=== PATIENT | female | born 1965 | race Asian ===

== ENCOUNTER 2023-12-20 09:31 | Outpatient (CLI) | payer MEDICARE, SELFPAY ==
--- NOTE | 2023-12-20 09:00 | CT_ITS ---
Patient: RUSTY PUTNAM Facility:?[facility] RIS Patient ID:?[id number] Site Patient ID:?[id number]. Site :?[id number] Study:?CT-Chest WITHOUT-12/20/2023 10:38:48 AM Ordering Physician:?DR. GONZALEZ Final Report: Indication: PT HAS NASOPHARYNX CANCER. CONSOLIDATION SEEN IN LUNG, CKING FOR Pneumonia Technique: Noncontrast CT chest Please note that all CT scans at this facility use dose modulation, iterative reconstruction, and/or weight-based dosing when appropriate to reduce radiation dose to as low as reasonably achievable. Comparison: None Findings: Focal airspace density within the medial aspect of the right middle lobe noted with air bronchograms at the proximal aspect. No pleural effusion. Mild underlying emphysema is suspected. Right apical pleural-parenchymal scarring. Mild scarring within the inferior lingula. No pulmonary edema or pneumothorax. No adenopathy in the mediastinum, alex or axilla. No vertebral body compression fracture or suspicious osseous lesion. Mild degenerative changes. Upper abdomen unremarkable. Impression: Small focal consolidative density within the medial right middle lobe. Please note that all CT scans at this facility use dose modulation, iterative reconstruction, and/or weight-based dosing when appropriate to reduce radiation dose to as low as reasonably achievable. Dictated by Ran Peck MD @ 12/20/2023 1:16:05 PM Signed by:?Ran Peck MD @12/20/2023 1:16:05 PM (Electronic Signature)
== END 2023-12-20 09:32 | disposition home or self-care (01) ==
PROVIDERS: Visit Provider Radiology Radiation Oncology
DX: J18.9 Pneumonia, unspecified organism (principal)
CPT/HCPCS: 71250

== ENCOUNTER 2025-01-27 16:13 | Emergency (ER) | payer MEDICARE, MEDICAID, SELFPAY ==
--- OUTSIDE RECORDS SUMMARY | 2024-12-17 | XMS_ITS | Encounter Summary ---
Author Organization [facility] Address [address] [place] [address] Care Team Providers Care Special Education Paraprofessional Name Role Phone Elsewhere, Pcp Primary Care Provider Unavailabl e Encounter Details Date Type Department Care Team (Late st Contact Info) Description 12/17/2024 Ancillary Procedure Department of Ophthalmology Social History Tobacco Use Types Packs/Day Years Used Date Smoking Tobacco: Never Passive Smoke Exposure: Never Smokeless Tobacco: Never Alcohol Use Standard Drinks/Week Comments Not Currently 1 (1 standard drink = 0.6 oz pure alcohol) patient states no alcohol in 6+months [facility] Utilities Answer Date Recorded In the past 12 months has [facility] [email or web address] gas, oil, or water [email or web address] threatened to shut off services in your home? No 10/28/2024 Humiliation, Afraid, Rape, and Kick questionnair e Answer Date Recorded Within the last year, have y ou been afraid of your partner or ex-partner? No 10/28/2024 Within the last year, have y ou been humiliated or emotionally abused in other ways by your partner or ex-partner? No Within the last year, have y ou been kicked, hit, slapped, or otherwise physically hurt by your partner or ex-partner? No 10/28/2024 Within the last year, have y ou been raped or forced to have any kind of sexual activity by your partner or ex-partner? No 10/28/2024 Social Connection and Isolat ion Panel [NHANES] Answer Date Recorded In a typical week, how many times do you talk on the phone with family, friends, or neighbors? More than three times a week 08/29/2022 How often do you get togethe r with friends or relatives? Three times a week 08/29/2022 How often do you attend chur or uatsdin services? Patient declined 08/29/2022 Do you belong to any clubs o r organizations such as yarsani groups, unions, [employer] or athletic groups, or school groups? No 08/29/2022 How often do you attend meet ings of the clubs or organizations you belong to? Never 08/29/2022 Are you , , di vorced, , never , or living with a partner? 08/29/2022 AUDIT-C Answer Date Recorded Q1: How often do you have a drink containing alc ohol? Monthly or less 08/29/2022 Q2: How many drinks containi ng alcohol do you have on a typical day when you are drinking? Patient declined 08/29/2022 Q3: How often do you have si x or more drinks on one occasion? Less than monthly 08/29/2022 Overall Financial Resource Strain (CARDIA) Answe r Date Recorded How hard is it for you to pa y for the very basics like food, housing, medical care, and heating? Patient declined 08/29/2022 PHQ-2 Answer Date Recorded PHQ-2 Score 0 02/13/2019 [facility] of Occupat ional Health - Occupational Stress Questionnaire Answer Date Recorded Do you feel stress - tense, restless, nervous, or anxious, or unable to sleep at night because your mind is troubled all the time - these days? Very much 08/29/2022 Exercise Vital Sign Answer Date Recorde d On average, how many days pe r week do you engage in moderate to strenuous exercise (like a brisk walk)? 0 days 09/18/2023 On average, how many minutes do you engage in exercise at this level? 0 min 09/18/2023 Hunger Vital Sign Answer Date Recorded Within the past 12 months, y ou worried that your food would run out before you got the money to buy more. Never true 10/28/19 Within the past 12 months, t he food you bought just didn't last and you didn't have money to get more. Never true 10/28/2024 PRAPARE - Transportation Answer Date Re corded In the past 12 months, has l ack of transportation kept you from medical appointments or from getting medications? No 10/11 In the past 12 months, has l ack of transportation kept you from meetings, work, or from getting things needed for daily living? No 10/28/2024 Nutrition Answer Date Recorded On average, how many serving s of fruits and vegetables do you eat per day (serving size is equal to 1 cup or approximately the size of a tennis ball)? 3-5 09/18/2023 Dental Answer Date Recorded Dental: Regular Dentist No 09/18/19 Employment Answer Date Recorded Employment status Temporarily disabled Housing Stability Answer Date Recorded What is your living situation today? I have a [facility] place to live 10/28/2024 Education Answer Date Recorded What is the highest level of school you have completed or the highest degree you have received? Associate degree: occupational, technical, or vocational program 08/29/2022 Sex and Gender Information Value Date Recorded Sex Assigned at Male 11/04/2018 9:57 AM NUTRITIONAL HEALTH COACH Legal Sex Male 4:48 PM NUTRITIONAL HEALTH COACH Gender Identity Male 11/04/2018 9:57 AM NUTRITIONAL HEALTH COACH Sexual Orientation Straight 11/04/2018 9: 57 AM NUTRITIONAL HEALTH COACH documented as of this encounter Plan of Treatment Upcoming Encounters Date Type Department Care Team (Latest Contact Info) Description 01/28/2025 12:20 PM CDT Lab Department of Laboratory Medicine and Pathology, [facility], in [place], [place] [address] [place] [phone] German Pierce P.A.-C. 200 [place] [phone] 01/28/2025 2:30 PM CDT Infusion Department of Oncology in [place], [place] [address] [place] [phone] German Pierce P.A.-C. [address] [place] [phone] 01/30/2025 4:28 PM CDT Hospital Encounter Post Anesthesia Care Unit in [place], [place] [address] [place] [phone] Quirino Jackson M.D. [address] [place] [phone] 01/30/2025 4:28 PM CDT - 01/30/2025 7:18 PM CDT Surgery [facility] MAIN OR [address] [place] [phone] Quirino Jackson M.D. [address] [place] [phone] INSERTION YSLETA DEL SUR CHAIN WEIGHT EYELID 02/09/2025 1:45 PM CDT Office Visit Department of Otorhinolaryngology in [place], [place] [address] [place] [phone] Quirino Bobo M.D. [address] [place] [phone] 02/09/2025 3:00 PM CDT Office Visit [facility] in [place], [place] [address] [place] [phone] Quirino Jackson M.D. [address] [place] [phone] 02/10/2025 11:00 AM CDT Lab Department of Laboratory Medicine and Pathology, [facility], in [place], [place] [address] [place] [phone] German Pierce P.A.-C. [address] [place] [phone] 02/10/2025 1:00 PM CDT Office Visit Department of Oncology in [place], [place] [address] [place] [phone] Rik Aguirre M.D., M.S. [address] [place] [phone] 02/13/2025 9:45 AM CDT Infusion Department of Oncology in [place], [place] [address] [place] [phone] German Pierce P.A.-C. [address] [place] [phone] 02/19/2025 10:00 AM CDT Lab Department of Laboratory Medicine and Pathology, [facility] in [place], [place] [address] [place] [phone] German Pierce P.A.-C. [address] [place] [phone] 02/19/2025 12:00 PM CDT Infusion Department of Oncology in [place], [place] [address] [place] [phone] German Pierce P.A.-C. [address] [place] [phone] 03/03/2025 11:00 AM CDT Lab Department of Laboratory Medicine and Pathology, [place], [place] [address] [place] [phone] German Pierce P.A.-C. [address] [place] [phone] 03/03/2025 1:00 PM CDT Office Visit Department of Oncology in [place], [place] [address] [place] [phone] Rik Aguirre M.D., M.S. [address] [place] [phone] 03/04/2025 7:30 AM CDT Infusion Department of Oncology in [place], [place] [address] [place] [phone] German Pierce P.A.-CCourtney [address] [place] [phone] 03/11/2025 10:00 AM CDT Lab Department of Laboratory Medicine and Pathology, [facility] in [place], [place] [address] [place] [phone] German Pierce P.A.-CCourtney [address] [place] [phone] 03/11/2025 12:00 PM CDT Infusion Department of Oncology in [place], [place] [address] [place] [phone] German Pierce P.A.-CCourtney [address] [place] [phone] 03/24/2025 7:10 AM CDT Lab Department of Laboratory Medicine and Pathology, [facility], in [place], [place] [address] [place] [phone] German Pierce P.A.-CCourtney [address] [place] [phone] 03/24/2025 9:20 AM CDT Office Visit Department of Oncology in [place], [place] [address] [place] [phone] Rik Aguirre M.D., M.S. [address] [place] [phone] 03/24/2025 10:15 AM CDT Infusion Department of Oncology in [place], [place] [address] [place] [phone] German Pierce P.A.-Wade [address] [place] [phone] 04/01/2025 11:00 AM CDT Lab Department of Laboratory Medicine and Pathology, [facility] in [place], [place] [address] [place] [phone] German Pierce P.A.-C. [address] [place] [phone] 04/01/2025 1:00 PM CDT Infusion Department of Oncology in [place], [place] [address] [place] [phone] German Pierce P.A.-Wade [address] [place] [phone] Scheduled Procedures Name Priority Associated Diagnoses Date/Ti me INSERTION GOLD WEIGHT EYELID Paralysis Facial 01/30/2025 4:28 PM CDT REPAIR ECTROPION Paralysis Facial 01/30/2025 4:28 PM CDT GRAFT FASCIA ANUEL Paralysis Facial 01/30/2025 4:28 PM CDT documented as of this encounter Procedures Procedure Name Priority Date/Time Associated Diagnosis Comments OPHTHALMOLOGY IMAGE EXAM Routine 12/17/2024 12:00 AM CDT documented in this encounter Results * Eye Visual Field Ptosis-Ophthalmology Image Exam (12/17/2024 12:00 AM CDT) Narrative IIMS - 12/17/2024 12:43 PM CDT This order has been created and auto-finalized to support the import of images acquired without order. The clinical documentation to support these images can be found on the encounter that produced images. us Provider Not In System IMG NON RAD IMAGING PROCE DURES Final Result [facility] NA documented in this encounter Visit Diagnoses Not on filedocumented in this encounter Additional Health Concerns Assessment Noted Time PHQ-9 Depression Total Score: 5 12/20/19 19 2:49 PM CDT documented as of this encounter Care Teams Special Education Paraprofessional Relationship Specialty Start Date End Date Elsewhere, Pcp PCP - General Internal Medicine 10/13/22 documented as of this encounter
--- OUTSIDE RECORDS SUMMARY | 2024-12-17 12:00 | XMS_ITS | Encounter Summary ---
Author Organization [facility] Address [address] [place] [id number] Care Team Providers Care Dumpling Machine Operator Name Role Phone Elsewhere, Pcp Primary Care Provider Unavailabl e Encounter Details Date Type Department Care Team (Late st Contact Info) Description 12/17/2024 12:00 PM CDT Ancillary Procedure Department of Ophthalmology in [place], [place] [address] [place] [phone] Quirino Jackson M.D. [address] [place] [phone] Ptosis Brow Social History Tobacco Use Types Packs/Day Years Used Date Smoking Tobacco: Never Passive Smoke Exposure: Never Smokeless Tobacco: Never Alcohol Use Standard Drinks/Week Comments Not Currently 1 (1 standard drink = 0.6 oz pure alcohol) patient states no alcohol in 6+months [facility] Utilities Answer Date Recorded In the past 12 months has e electric, gas, oil, or water [employer] threatened to shut off services in your [...] week 08/29/2022 How often do you attend [facility] or pentecostal services? Patient declined 08/29/2022 Do you belong to any clubs o r organizations such as baptist groups, unions, fraternal or athletic groups, or school groups? No [...] Answer Date Recorded PHQ-2 Score 0 02/13/2019 [facility] of Occupat ional Health - Occupational Stress [...] money to buy more. Never true 10/28/19 25 Within the past 12 months, t he [...] Date Recorded Dental: Regular Dentist No 09/18/19 24 Employment Answer Date Recorded Employment status Temporarily disabled Housing Stability Answer Date Recorded What is your living situation today? I have a [facility] place to live 10/28/2024 Education Answer Date Recorded What is the highest level of school you have completed or the highest degree you have received? Associate degree: occupational, technical, or vocational program 08/29/2022 Sex and Gender Information Value Date Recorded Sex Assigned at Male 11/04/2018 9:57 AM HAMMER OPERATOR Legal Sex Male 4:48 PM HAMMER OPERATOR Gender Identity Male 11/04/2018 9:57 AM HAMMER OPERATOR Sexual Orientation Straight 11/04/2018 9: 57 AM HAMMER OPERATOR documented as of this encounter Plan of Treatment Upcoming Encounters Date Type Department Care Team (Latest Contact Info) Description 01/28/2025 12:20 PM CDT Lab Department of Laboratory Medicine and Pathology, [facility], in [place], [place] [address] [place] [phone] German Pierce P.A.-C. [address] [place] [phone] 01/28/2025 2:30 PM CDT Infusion Department of Oncology in [place], [place] [address] [place] [phone] German Pierce P.A.-C. [address] [place] [phone] 01/30/2025 4:28 PM CDT Hospital Encounter Post Anesthesia Care Unit in [place], [place] [address] [place] [phone] Quirino Jackson M.D. [address] [place] [phone] 01/30/2025 4:28 PM CDT - 01/30/2025 7:18 PM CDT Surgery [facility] MAIN OR [address] [place] [phone] Quirino Jackson M.D. [address] [place] [phone] INSERTION YAVAPAI-APACHE CHAIN WEIGHT EYELID 02/09/2025 1:45 PM CDT Office Visit Department of Otorhinolaryngology in [place], [place] [address] [place] [phone] Quirino Bobo M.D. [address] [place] [phone] 02/09/2025 3:00 PM CDT Office Visit [facility] in [place], [place] [address] [place] [phone] Quirino Jackson M.D. [address] [place] [phone] 02/10/2025 11:00 AM CDT Lab Department of Laboratory Medicine and Pathology, [facility] in [place], [place] [address] [place] [phone] German Pierce P.A.-CCourtney [address] [place] [phone] 02/10/2025 1:00 PM CDT Office Visit Department of Oncology in [place], [place] [address] [place] [phone] Rik Aguirre M.D., M.S. [address] [place] [phone] 02/13/2025 9:45 AM CDT Infusion Department of Oncology in [place], [place] [address] [place] [phone] German Pierce P.A.-CCourtney [address] [place] [phone] 02/19/2025 10:00 AM CDT Lab Department of Laboratory Medicine and Pathology, [facility] in [place], [place] [address] [place] [phone] German Pierce P.A.-CCourtney [address] [place] [phone] 02/19/2025 12:00 PM CDT Infusion Department of Oncology in [place], [place] [address] [place] [phone] German Pierce P.A.-Wade [address] [place] [phone] 03/03/2025 11:00 AM CDT Lab Department of Laboratory Medicine and Pathology, [facility] in [place], [place] [address] [place] [phone] German Pierce P.A.-C. [address] [place] [phone] 03/03/2025 1:00 PM CDT Office Visit Department of Oncology in [place], [place] [address] [place] [phone] Rik Aguirre M.D., M.S. [address] [place] [phone] 03/04/2025 7:30 AM CDT Infusion Department of Oncology in [place], [place] [address] [place] [phone] German Pierce P.A.-C. [address] [place] [phone] 03/11/2025 10:00 AM CDT Lab Department of Laboratory Medicine and Pathology, [facility] in [place], [place] [address] [place] [phone] German Pierce P.A.-C. [address] [place] [phone] 03/11/2025 12:00 PM CDT Infusion Department of Oncology in [address] [phone] German Pierce P.A.-C. [address] [place] [phone] 03/24/2025 7:10 AM CDT Lab Department of Laboratory Medicine and Pathology, [facility] in [place], [place] [address] [place] [phone] German Pierce P.A.-C. [address] [place] [phone] 03/24/2025 9:20 AM CDT Office Visit Department of Oncology in [place], [place] [address] [place] [phone] Rik Aguirre M.D., M.S. [address] [place] [phone] 03/24/2025 10:15 AM CDT Infusion Department of Oncology in [place], [place] [address] [place] [phone] German Pierce P.A.-Wade [address] [place] [phone] 04/01/2025 11:00 AM CDT Lab Department of Laboratory Medicine and Pathology, [facility] in [place], [place] [address] [place] [phone] German Pierce P.A.-Wade [address] [place] [phone] 04/01/2025 1:00 PM CDT Infusion Department of Oncology in [place], [place] [address] [place] [phone] German Pierce P.A.-Wade [address] [place] [phone] Scheduled Procedures Name Priority Associated Diagnoses Date/Ti me INSERTION GOLD WEIGHT EYELID Paralysis Facial 01/30/2025 4:28 PM CDT REPAIR ECTROPION Paralysis Facial 01/30/2025 4:28 PM CDT GRAFT FASCIA ANUEL Paralysis Facial 01/30/2025 4:28 PM CDT documented as of this encounter Procedures Procedure Name Priority Date/Time Associated Diagnosis Comments AUTOMATED VF - LIMITED - OU - BOTH EYES Routine 12/17/2024 12:25 PM CDT Ptosis Brow documented in this encounter Results * Automated VF - Limited - OU - Both Eyes (12/17/2024 12:25 PM CDT) Narrative OPHTHALMOLOGY IMAGING EXAM - 12/17/2024 1:52 PM CDT Ptosis See interpretation from Oculoplastics. Quirino Jackson M.D. OPHTH VISUAL FIELD Final Result OPHTHALMOLOGY IMAGING EXAM documented in this encounter Visit Diagnoses Diagnosis Ptosis Brow Paralysis Facial documented in this encounter Additional Health Concerns Assessment Noted Time PHQ-9 Depression Total Score: 5 12/20/19 19 2:49 PM CDT documented as of this encounter Care Teams Dumpling Machine Operator Relationship Specialty Start Date End Date Elsewhere, Pcp PCP - General Internal Medicine 10/13/22 documented as of this encounter
--- OUTSIDE RECORDS SUMMARY | 2024-12-17 13:00 | XMS_ITS | Encounter Summary ---
Author Organization [facility] Address [address] [place] [address] Care Team Providers Care Clinical Resource Manager Name Role Phone Elsewhere, Pcp Primary Care Provider Unavailabl e Reason for Visit * Outpatient (Routine) - Closed Specialty Diagnoses / Procedures Referred By Luz wu Referred To Contact Ophthalmology Elieser Almonte M.D., Ph.D. 200 [place] [address] Phone: tel: fax: [facility] Referral ID Status Reason Start Date Expiration Date Visits Re quested Visits Authorized [id number] Closed 07/14/2024 01/13/2026 1 1 Encounter Details Date Type Department Care Team (Latest Contact Info) Description 12/17/2024 1:00 PM CDT Office Visit Department of Ophthalmology in [place], [place] 200 [place] [phone] Elieser Almonte M.D., Ph.D. [address] [place] [phone] Esotropia (Primary Dx); Palsy Abducens Nerve Right; Diplopia; Injury Facial Nerve Subsequent Right; Malignant Neoplasm Of Nasopharynx (HCC) Social History Tobacco Use Types Packs/Day Years Used Date Smoking Tobacco: Never Passive Smoke Exposure: Never Smokeless Tobacco: Never Alcohol Use Standard Drinks/Week Comments Not Currently 1 (1 standard drink = 0.6 oz pure alcohol) patient states no alcohol in 6+months [facility] Utilities Answer Date Recorded In the past 12 months has e [employer], [employer], oil, or water [employer] threatened to shut off services in your [...] week 08/29/2022 How often do you attend formerly [facility] or mu-ism services? Patient declined 08/29/2022 Do you belong to any clubs o r organizations such as temple groups, unions, fraternal or athletic groups, or [...] Answer Date Recorded PHQ-2 Score 0 02/13/2019 [facility] Occupational Stress Questionnaire Answer Date Recorded [...] Answer Date Recorded Employment status Temporarily disabled 4 Housing Stability Answer Date Recorded What is your living situation today? I have a [facility] to live 10/28/2024 Education Answer Date Recorded What is the highest level of school you have completed or the highest degree you have received? Associate degree: occupational, technical, or vocational program 08/29/2022 Sex and Gender Information Value Date Recorded Sex Assigned at Male 11/04/2018 9:57 AM DIRECTOR OF CORPORATE STRATEGY Legal Sex Male 4:48 PM DIRECTOR OF CORPORATE STRATEGY Gender Identity Male 11/04/2018 9:57 AM DIRECTOR OF CORPORATE STRATEGY Sexual Orientation Straight 11/04/2018 9: 57 AM DIRECTOR OF CORPORATE STRATEGY documented as of this encounter Progress Notes * Elieser Almonte M.D., Ph.D. 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 In 10/04/2022 he was found to have progressive enlargement of a right inferolateral clivus mass with progressive marrow infiltration extending to the left of the midline and with skull base involve ment, suspicious for tumor progression vs osteoradionecrosis. Serial MRI showed minimal progression, and biopsy 10/12/2022 showed no neoplasm. 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 He was also started on hyperbaric oxygen, last 08/2023. He has had binocular horizontal diplopia since 03/2024 which has been progressively worsening. He has also not able to close the right eye since 05/2024. I saw him on 07/14/24 and noted a large esotropia of 30^ in primary, worse with right>left gaze. He had -5 abduction deficit of the right eye. 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 We will refer her him to oculoplastics for suggestions for his right lagophthalmos. 12/17/24: MRI on 10/29/24: Progressive infiltration of the right lateral skull base with extension to involve the right IAC Examination today continues to show a large esotropia and -5 abduction deficit right eye. I recommended a referral to adult strabismus for consideration of Botox or strabismus surgery. He also has an oculoplastics consultation pending for the right lagophthalmos. In the meantime, I recommended ointment 3-4 times day. documented in this encounter Plan of Treatment Upcoming Encounters Date Type Department Care Team (Latest Contact Info) Description 01/28/2025 12:20 PM CDT Lab Department of Laboratory Medicine and Pathology, [facility], in [place], [place] [address] [place] [phone] German Pierce P.A.-C. [address] [place] [phone] 01/28/2025 2:30 PM CDT Infusion Department of Oncology in [place], [place] [address] [place] [phone] German Pierce P.A.-C. [address] [place] [phone] 01/30/2025 4:28 PM CDT Hospital Encounter Post Anesthesia Care Unit in [place] [id number] [place] [phone] Quirino Jackson M.D. [address] [place] [phone] 01/30/2025 4:28 PM CDT - 01/30/2025 7:18 PM CDT Surgery [facility] OR [address] [place] [phone] Quirino Jackson M.D. [address] [place] [phone] INSERTION KOOTENAI CHAIN WEIGHT EYELID 02/09/2025 1:45 PM CDT Office Visit Department of Otorhinolaryngology in [place], [place] [address] [place] [phone] Quirino Bobo M.D. [address] [place] [phone] 02/09/2025 3:00 PM CDT Office Visit [facility] for [facility] in [place], [place] [address] [place] [phone] Quirino Jackson M.D. [address] [place] [phone] 02/10/2025 11:00 AM CDT Lab Department of Laboratory Medicine and Pathology, [facility] in [place], [place] [address] [place] [phone] German Pierce PCourtneyA.-C. [address] [place] [phone] 02/10/2025 1:00 PM CDT Office Visit Department of Oncology in [address] [phone] Rik Aguirre M.D., M.S. [address] [place] [phone] 02/13/2025 9:45 AM CDT Infusion Department of Oncology in [address] [phone] German Pierce PCourtneyA.-CCourtney [address] [place] [phone] 02/19/2025 10:00 AM CDT Lab Department of Laboratory Medicine and Pathology, [facility] in [address] [phone] German Pierce P.A.-CCourtney [address] [place] [phone] 02/19/2025 12:00 PM CDT Infusion Department of Oncology in [place], [place] [address] [place] [phone] German Pierce P.A.-C. [address] [place] [phone] 03/03/2025 11:00 AM CDT Lab Department of Laboratory Medicine and Pathology, [facility] in [place], [place] [address] [place] [phone] German Pierce P.A.-C. [address] [place] [phone] 03/03/2025 1:00 PM CDT Office Visit Department of Oncology in [address] [phone] Rik Aguirre M.D., M.S. [address] [place] [phone] 03/04/2025 7:30 AM CDT Infusion Department of Oncology in [address] [phone] German Pierce P.A.-Wade [address] [place] [phone] 03/11/2025 10:00 AM CDT Lab Department of Laboratory Medicine and Pathology, [facility], in [place], [place] [address] [place] [phone] German Pierce P.A.-C. [address] [place] [phone] 03/11/2025 12:00 PM CDT Infusion Department of Oncology in [place], [place] [address] [place] [phone] German Pierce P.A.-C. [address] [place] [phone] 03/24/2025 7:10 AM CDT Lab Department of Laboratory Medicine and Pathology, [facility] in [place], [place] [address] [place] [phone] German Pierce P.A.-C. [address] [place] [phone] 03/24/2025 9:20 AM CDT Office Visit Department of Oncology in [place], [place] [address] [place] [phone] Rik Aguirre M.D., M.S. [address] [place] [phone] 03/24/2025 10:15 AM CDT Infusion Department of Oncology in [place], [place] [address] [place] [phone] German Pierce P.A.-C. [address] [place] [phone] 04/01/2025 11:00 AM CDT Lab Department of Laboratory Medicine and Pathology, [facility], in [place], [place] [address] [place] [phone] German Pierce P.A.-C. [address] [place] [phone] 04/01/2025 1:00 PM CDT Infusion Department of Oncology in [place], [place] [address] [place] [phone] German Pirece P.A.-C. [address] [place] [phone] Scheduled Procedures Name Priority Associated Diagnoses Date/Ti me INSERTION GOLD WEIGHT EYELID Paralysis Facial 01/30/2025 4:28 PM CDT REPAIR ECTROPION Paralysis Facial 01/30/2025 4:28 PM CDT GRAFT FASCIA ANUEL Paralysis Facial 01/30/2025 4:28 PM CDT documented as of this encounter Procedures Procedure Name Priority Date/Time Associated Diagnosis Comments SENSORY MOTOR EXAM Routine 12/17/2024 1: 32 PM CDT Palsy Abducens Nerve Right documented in this encounter Results * Sensory Motor Exam (12/17/2024 1:32 PM CDT) Narrative OPHTHALMOLGY NON-IMAGING ORDERS - 12/17/2024 1:52 PM CDT I have reviewed the medical record and the sensorimotor exam documentation. The findings are consistent with my previously initiated care plan. I agree with the impression, plan, and follow up as entered by the shake splitter. Notes See note. us Elieser Almonte M.D., Ph.D. OPHTH TOMOGRAPHY Final R esult OPHTHALMOLGY NON-IMAGING ORDERS documented in this encounter Visit Diagnoses Diagnosis Esotropia- Primary Palsy Abducens Nerve Right Diplopia Injury Facial Nerve Subsequent Right Malignant Neoplasm Of Nasopharynx (HCC) Paralysis Facial documented in this encounter Additional Health Concerns Assessment Noted Time PHQ-9 Depression Total Score: 5 12/20/19 19 2:49 PM CDT documented as of this encounter Care Teams Clinical Resource Manager Relationship Specialty Start Date End Date Elsewhere, Pcp PCP - General Internal Medicine 10/13/22 documented as of this encounter
--- OUTSIDE RECORDS SUMMARY | 2024-12-22 14:00 | XMS_ITS | Encounter Summary ---
Author Organization [facility] Address [address] [place] [phone] Care Team Providers Care Processing [employer] Supervisor Name Role Phone Elsewhere, Pcp Primary Care Provider Unavailabl e Reason for Visit * Outpatient (Routine) - Closed Specialty Diagnoses / Procedures Referred By Luz wu Referred To Contact Oncology Diagnoses Malignant Neoplasm Of Nasopharynx (HCC) Trever Newman M.D. [address] [place] [address] Phone: tel: fax: Robbi Davis M.D. [address] [place] [address] Phone: tel: fax: Referral ID Status Reason Start Date Expiration Date Visits Re quested Visits Authorized [id number] Closed 10/31/2024 05/02/2026 1 1 Encounter Details Date Type Department Care Team (Late st Contact Info) Description 12/22/2024 2:00 PM CDT Office Visit Department of Oncology in [place], [place] [address] [place] [phone] Rik Aguirre M.D., M.S. 200 [place] [address] Malignant Neoplasm Of Nasopharynx (HCC) (Primary Dx) Social History Tobacco Use Types Packs/Day Years Used Date Smoking Tobacco: Never Passive Smoke Exposure: Never Smokeless Tobacco: Never Alcohol Use Standard Drinks/Week Comments Not Currently 1 (1 standard drink = 0.6 oz pure alcohol) patient states no alcohol in 6+months [facility] Utilities Answer Date Recorded In the past 12 months has e electric, gas, oil, or water company threatened to shut off services in your [...] 08/29/2022 How often do you attend chur ch or denominational services? Patient declined 08/29/2022 Do you belong to any clubs o r organizations such as sikhism groups, unions, fraternal or athletic groups, or [...] Answer Date Recorded PHQ-2 Score 0 02/13/2019 [facility] - Occupational [...] Sex Assigned at Male 11/04/2018 9:57 AM PUBLICIST Legal Sex Male 4:48 PM PUBLICIST Gender Identity Male 11/04/2018 9:57 AM PUBLICIST Sexual Orientation Straight 11/04/2018 9: 57 AM PUBLICIST documented as of this encounter Last Filed Vital Signs Vital Sign Reading Time Taken Comments Blood Pressure 115/72 12/22/2024 1:48 PM CDT Pulse 68 12/22/2024 1:48 PM CDT Temperature 36.1 C (97 F) 12/22/2024 1:48 PM CDT Respiratory Rate 14 12/22/2024 1:48 PM CDT Oxygen Saturation 99% 12/22/2024 1:48 PM CDT Inhaled Oxygen Concentration - - Weight 66.3 kg (146 lb 2.6 oz) 12/22/2024 1:48 P M CDT Height - - Body Mass Index 24.06 10/29/2024 12:00 PM PUBLICIST documented in this encounter Progress Notes * Inocente Zarate M.B.B.S. - 12/22/2024 2:00 PM CDT MEDICAL ONCOLOGY NOTE DEMOGRAPHIC INFORMATION Patient Name: Stew Jj Preferred Name: Stew Birthdate: 1965 Sex: male Address: [address] [place] [phone] [facility] Reji Anguiano M.B.B.S., Ph.D. German Pierce P.A.-C. SUBJECTIVE CHIEF COMPLAINT/PURPOSE OF VISIT Stew is a 59 y.o. male who is seen in clinic for nasopharyngeal squamous cell carcinoma. HISTORY OF PRESENT ILLNESS Patient oncologic history is as follows, updated by me to reflect interim changes: Oncology History Malignant Neoplasm Of Nasopharynx (HCC) 12/01/2016 Other Reported a several month history of headache. In February underwent a MRI of the brain. 08/23/2018 Biopsy/Pathology While in [facility], underwent CT temporal bone (symptoms of right ear pain) which showed a right sided nasopharyngeal mass. 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 A subsequent CT neck confirmed the nasopharyngeal mass and prominent right sided jugular nodes. 09/18/2018 Other Seen by ENT provider locally who ordered imaging including a MRI of the head and PET/CT. The MRI showed the right sided nasopharyngeal mass (with leftward extension) with intracranial extension, encasement of the carotid artery, and likely perineural invasion (right vagus and glossopharyngeal nerve). By outside notes, PET/CT showed the nasopharyngeal mass and slightly avid level II LN in the right neck considered suspicious. Consultations in Radiation and Medical Oncology. Upfront chemotherapy was recommended. 10/03/2018 - 11/14/2018 Chemotherapy Commence with cisplatin/docetaxel/5FU x 2 cycles. 11/25/2018 - 01/10/2019 Radiation Therapy Proton therapy delivered with 7000 cGy (RBE=1.1)/35 fractions with weekly cisplatin. 11/25/2018 - 01/10/2019 Chemotherapy CISplatin Weekly ( with Radiation ) ( Head & Neck ) Start Date: 11/25/2018 04/22/2019 Critical Imaging MRI face shows continued decrease in size and enhancement of the infiltrative invasive right-sided nasopharyngeal carcinoma since 11/15/2018 indicating interval response to treatment. 07/19/2020 Critical Imaging MR face demonstrated no significant change in the appearance of the treated tumor involving the skull base with abnormal signal and enhancement surrounding the right internal carotid artery, extending into the right hypoglossal canal, and involving the right side of the clivus, right occipital condyle, and right pterygoid plates. Abnormal signal partially surrounds the right prevertebral musculature and extends to the right jugular foramen. No new areas of abnormal signal or enhancement. 12/02/2020 Critical Imaging PET-CT scan demonstrated no evidence of locally recurrent or metastatic FDG avid malignancy. 12/23/2020 Critical Imaging MR face demonstrated a stable exam with residual signal abnormality and enhancement in the right skull base and prevertebral musculature. 02/09/2022 Critical Imaging MR face demonstrated increase in the enhancement and increased T2 signal involving the right clivusand basiocciput compared to MRI 12/23/2020. While this could represent evolving post radiation changes, continued attention to this region on follow-up exams is recommended. No change in the treated soft tissue component of the tumor at the right skull base. 09/20/2022 Critical Imaging MR face demonstrated increased size of the previously noted mass involving the right inferolateral aspect of the clivus and adjacent soft tissues noted in addition to progressive marrow infiltration extending to the left of midline within the clivus and the right lateral basion occiput. Additionally increased dural infiltration is demonstrated along the right lateral aspect of the clivus. Findings are suspicious for tumor progression. 09/20/2022 Other Appointment with Shayy Lynn P.A.-C. who discussed the patient's case with Drs. Anaya, Kenan, and Lesley. Recommended biopsy, EBV blood test, MRI brain, and PET-CT scan for full re-staging. 09/21/2022 Critical Imaging MR brain demonstrated no change since recent face MRI in the infiltrative masslike lesion centered on the right clivus and basiocciput, suggestive of tumor progression. No evidence of intracranial metastatic disease. 09/21/2022 Other EBV 77 IU/mL 10/04/2022 Critical Imaging FDG PET-CT demonstrated destructive mass centered in the right clivus and basioccipital. Anatomic details of the mass better evaluated on MRI. No findings for metastatic disease. 10/05/2022 Other Rigid nasal endoscopy Findings: Septum midline. Bilateral nasal cavities are narrowed due to congested bilateral turbinates. Able to view the bilateral middle meatus and nasopharynx. There was evidence of previous radiation with erythema however no notable tissue to biopsy. No pus/purulence/polyps bilaterally. 10/12/2022 Biopsy/Pathology FINAL DIAGNOSIS A. Nasopharynx, deep right, biopsy: Fibrous tissue and skeletal muscle with mild chronic inflammation, negative for neoplasm. B. Nasopharynx, deep right No. 2, biopsy: Fibrous tissue and skeletal muscle with mild chronic inflammation, negative for neoplasm. C. Nasopharynx, deep right No. 3, biopsy: Fibrous tissue and skeletal muscle mild chronic inflammation, negative for neoplasm. Immunoperoxidase and in situ hybridization stains were performed (block B1). Keratin AE1/AE3 is negative for carcinoma. In situ hybridization for Kady- Lauren virus encoded RNA (RYAN) is negative. There are scattered lymphoid cells with crush artifact that are composed predominantly of CD3 positiveT-cells with few CD20 positive B-cells. 02/27/2023 Critical Imaging MR face demonstrated stable exam without definitive findings to suggest tumor progression or recurrence. 06/26/2023 Critical Imaging PET/CT showed increase in destructive intensely avid right skull base mass. Focal uptake in the right retropharyngeal/prevertebral soft tissues anterior to the right lateral mass of C1. MRI face no significant change since 09/20/2022. Stable extent of abnormal signal and enhancement at the skull base, involving the right greater than left aspects of the clivus and right occiput occiput since 09/20/2022. Note that the region of enhancement appears more confluent and the 02/27/2023 exam, though similar to 09/20/2022, which is likely due to differences in technique. 07/25/2023 Other Hyperbaric oxygen therapy: Initiated on 07/25/2023 Completed 30 preoperative HBO treatments, last treatment on 09/04/2023 Anticipated 10 additional treatments postoperatively, we will be determined following ENT follow uphere 08/21/2023 Surgery and Procedures Restylane material was injected into the right vocal cord. 09/18/[address] Skull Base IMPRESSION: Osseous erosion and soft tissue enhancement corresponding to the FDG avid region at the right skullbase has not substantially changed since 06/26/2023 allowing for differences in modality. While at least a component of this could be due to osteoradionecrosis and associated inflammation, tumor recurrence/progression is also possible, particularly given the progressive changes on PET/CT. Superimpos ed infection considered less likely given the relative stability since 06/26/2023. 11/19/2023 Other Swallow study demonstrated moderate oropharyngeal dysphagia characterized by right-sided pharyngealweakness resulting in impaired airway protection and pharyngeal retention across consistencies. When compared to the results from his evaluation in May 2023, there is certainly worsening of function. 11/28/2023 Critical Imaging PET-CT IMPRESSION: 1. Minimally increased FDG avidity associated with the destructive mass involving the right skull base and clivus. Anatomic extent be better evaluated on pending facial MR. 2. Increased focal FDG avid lesion in the right retropharyngeal soft tissues. 3. New FDG avid masslike consolidation in the anterior right middle lobe likely representing an infectious process with reactive mediastinal and hilar lymph nodes. Consider chest CT in 6-8 weeks to confirm expected evolution. MR Face IMPRESSION: 1. The enhancing mass lesion involving the right greater than left central skull base has not changed appreciably. 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 2. Stable narrowing of the high right cervical internal carotid artery. 12/10/2023 Other ENT surgery appointment with Dr. Paola Neely where the patient decided to proceed with conservative treatment instead of surgical debridement of the clivus. 12/13/2023 Surgery and Procedures Microdirect laryngoscopy, injection of fat to right true vocal cord and harvest fat graft abdomen was performed by Dr. Mckeon. 12/20/[address] chest demonstrated small focal consolidative density within the medial right middle lobe 07/08/2024 Critical Imaging MR face IMPRESSION: Minimal progression in the extensive soft tissue changes in the right skull base, and remain suspicious for radiation necrosis as described 07/23/2024 Biopsy/Pathology A. Soft Tissue, face, right retropharyngeal, fine needle aspiration (smears/core biopsy): Negative for malignancy. Fragments of dense fibrous tissue and skeletal muscle. 10/29/2024 Critical Imaging MRI brain IMPRESSION: Progressive infiltration of the right lateral skull base with extension to involve the right IAC asdescribed. Progressive tumor infiltration of the right petrous apex extending to involve the adjacent right lateral clivus and bilateral occipital condyles, right greater the left. Evidence of progressive extraosseous tumor extension with infiltration of the dura along the posterolateral aspect of the right petrous apex is observed with lateral extension to involve the right internal auditory canal when compared back to April 2024 (see screen saved comparison images). Increased leptomeningeal enhancementis noted involving the intracranial segment of the right vertebral artery 11/04/[address] 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 Patientwas scheduled for biopsy on 11/05/2024, but did not show and was not reachable for rescheduling. In addition, he has not shown up for Radiation Oncology return visits as well. ECOG Score--0: Fully active, able to carry on all pre-disease performance without restriction SYSTEMS REVIEW A complete 10 point systems review was performed and negative except as noted above in the HPI. PAST MEDICAL/SURGICAL HISTORY/SOCIAL HISTORY/FAMILY HISTORY Reviewed and available in the EMR. VITAL SIGNS Vitals: 12/22/24 1348 BP: 115/72 Pulse: 68 Resp: 14 Temp: 36.1 ??C SpO2: 99% Interval HEYDI Presents to clinic accompanied by his , son-Michele and [id number]. He continues to experience progressive symptoms including worsening headaches and vertigo. Also continues to have deteriorating vision and hearing as well as difficulties with mastication. PHYSICAL EXAMINATION General: Alert, interactive, not acutely ill, no apparent distress. Skin: No rashes or lesions on exposed surfaces Eyes: Pupils equal and round. Sclera anicteric. ENT: Facial asymmetry due to treatment Lungs: Normal rate and effort. Clear to auscultation. Heart: Regular rate and rhythm. No murmurs appreciated. No extremity edema. Pulses 2+ and symmetric. Abdomen: Soft, flat, bowel sounds normoactive, nontender, nondistended, no palpable masses or organomegaly. Joints: No joint deformities or active synovitis noted. LABS No results for input(s): NA, K, CL, BICARB, MG, CALCIUM, BUN, CREATININE, GLUCOSE, LABGLUC, ALBUMIN, PREALBUMIN, HGB, HCT, WBC, PLT, INR, PT, APTT, POR3KKA, PHART, PO2ART in the last 24 hours. No lab exists for component: [id number] No results found. ASSESSMENT / PLAN Stew Jj is a 59 y.o. male who is seen in clinic for nasopharyngeal squamous cell carcinoma. #1 Nasopharyngeal squamous cell carcinoma s/p induction x2 followed by chemoradiation with weekly cisplatin, EOT: January 10, 2019. #2 Indeterminate T2 intensity at the right clivus #3 Chronic temporal headaches Update 12/22/24 Mr. Jj recently underwent an MRI scan, which continues to demonstrate progressive infiltration ofthe right lateral skull base, raising concern for either metastases already radionecrosis. He reports worsening symptoms, particularly involving vision, hearing and mastication on the right side. Victorino tionally, his headaches has been progressively intensifying. We shared the concern that these symptoms may reflect disease progression. However, in the absence of objective confirmation via biopsy, initiation of systemic therapy is not feasible at this time. Notably, the patient previously received hyperbaric oxygen therapy for suspected redo necrosis, but this yielded no symptomatic improvement. Mr. Jj and his family remained primarily concerned about the CT of the repeat biopsy, as he experienced complications following his initial biopsy in October 2022. He is scheduled to see an ENT specialist on 01/05, we have further discussions regarding the potential biopsy will take place. In the interim, repeat EBV serologies has been ordered. Summary of plan - Repeat EBV serology Plan was discussed with Dr. Anaya PATIENT EDUCATION Patient ready to learn, no apparent learning barriers were identified; learning preferences includelistening. Explained diagnosis and treatment plan; patient expressed understanding of the content. It was my pleasure to care for Stew Jj today. Total time of encounter: I personally spent 30 minutes in direct and indirect patient care related to today's visit Katarzyna Connelly. Hematology-Oncology Fellow, PGY-4 12/22/24 3:38 PM CDT Cosigned by Rik Aguirre M.D., M.S. at 12/22/2024 4:21 PM CDT Associated attestation - Rik Aguirre M.D., M.S. - 12/22/2024 4:21 PM CDT I saw and evaluated the patient, participating in the solorzaon portions of the service. I reviewed the fellow???s note. I agree with the fellow???s findings and plan. Problem list: Nasopharyngeal undifferentiated EBV-associated carcinoma, status post two cycles of induction chemotherapy followed by definitive chemoradiotherapy with weekly cisplatin, completed on January 10, 2019. Indeterminate T2 signal at the right clivus, likely related to post-radiation changes. Biopsies from the nasopharynx on October 2022 and again on July 23, 2024, were both negative for recurrence, with undetectable EBV serology. Chronic temporal headaches persisting for nearly 2 years. Impression: Mr. Jj continues to experience severe headaches, which began following a biopsy in 2022. Unfortunately, further evaluations have remained indeterminate for malignancy. I discussed with him that while the radiological findings are concerning, all biopsies to date have been negative. Given that recurrence six years after definitive therapy would be atypical, I emphasized the importance of obtaining tissue confirmation to guide further management. We will proceed with EBV serologies,and he is scheduled to see our ENT colleagues next week to evaluate the feasibility of a repeat biopsy. Plan: EBV serology ENT for biopsy Rik Browning M.D., M.S. documented in this encounter Plan of Treatment Upcoming Encounters Date Type Department Care Team (Latest Contact Info) Description 01/28/2025 12:20 PM CDT Lab Department of Laboratory Medicine and Pathology, [facility], in [place], [place] [address] [place] [phone] German Pierce P.A.-C. [address] [place] [phone] 01/28/2025 2:30 PM CDT Infusion Department of Oncology in [place], [place] [address] [place] [phone] German Pierce P.A.-C. [address] [place] [phone] 01/30/2025 4:28 PM CDT Hospital Encounter Post Anesthesia Care Unit in [place] [id number] [place] [phone] Quirino Jackson M.D. [address] [place] [phone] 01/30/2025 4:28 PM CDT - 01/30/2025 7:18 PM CDT Surgery [facility] OR [address] [place] [phone] Quirino Jackson M.D. [address] [place] [phone] INSERTION PENOBSCOT CHAIN WEIGHT EYELID 02/09/2025 1:45 PM CDT Office Visit Department of Otorhinolaryngology in [place], [place] [address] [place] [address] Quirino Bobo M.D. [address] [place] [phone] 02/09/2025 3:00 PM CDT Office Visit [facility] in [place], [place] [address] [place] [phone] Quirino Jackson M.D. [address] [place] [phone] 02/10/2025 11:00 AM CDT Lab Department of Laboratory Medicine and Pathology, [facility] in [place], [place] [address] [place] [phone] German Pierce P.A.-CCourtney [address] [place] [phone] 02/10/2025 1:00 PM CDT Office Visit Department of Oncology in [place], [place] [address] [place] [phone] Rik Aguirre M.D., M.S. [address] [place] [phone] 02/13/2025 9:45 AM CDT Infusion Department of Oncology in [place], [place] [address] [place] [phone] German Pierce P.ACourtney-CCourtney [address] [place] [phone] 02/19/2025 10:00 AM CDT Lab Department of Laboratory Medicine and Pathology, [facility], in [place], [place] [address] [place] [phone] German Pierce P.A.-C. [address] [place] [phone] 02/19/2025 12:00 PM CDT Infusion Department of Oncology in [place], [place] [address] [place] [phone] German Pierce P.A.-C. [address] [place] [phone] 03/03/2025 11:00 AM CDT Lab Department of Laboratory Medicine and Pathology, [facility] in [place], [place] [address] [place] [phone] German Pierce P.A.-C. [address] [place] [phone] 03/03/2025 1:00 PM CDT Office Visit Department of Oncology in [place], [place] [address] [place] [phone] Rik Aguirre M.D., M.S. [address] [place] [phone] 03/04/2025 7:30 AM CDT Infusion Department of Oncology in [place], [place] [address] [place] [phone] German Pierce P.A.-C. [address] [place] [phone] 03/11/2025 10:00 AM CDT Lab Department of Laboratory Medicine and Pathology, [facility] in [place], [place] [address] [place] [phone] German Pierce P.A.-C. [address] [place] [phone] 03/11/2025 12:00 PM CDT Infusion Department of Oncology in [place], [place] [address] [place] [phone] German Pierce P.A.-C. [address] [place] [phone] 03/24/2025 7:10 AM CDT Lab Department of Laboratory Medicine and Pathology, [facility] in [place], [place] [address] [place] [phone] German Pierce P.A.-C. [address] [place] [phone] 03/24/2025 9:20 AM CDT Office Visit Department of Oncology in [place], [place] [address] [place] [phone] Rik Aguirre M.D., M.S. [address] [place] [phone] 03/24/2025 10:15 AM CDT Infusion Department of Oncology in [place], [place] [address] [place] [phone] German Pierce P.A.-C. [address] [place] [phone] 04/01/2025 11:00 AM CDT Lab Department of Laboratory Medicine and Pathology, [facility], in [place], [place] [address] [place] [phone] German Pierce P.A.-C. [address] [place] [phone] 04/01/2025 1:00 PM CDT Infusion Department of Oncology in [address] [phone] Faricardo-German Waldron P.A.-C. [address] [place] [phone] Scheduled Procedures Name Priority Associated Diagnoses Date/Ti me INSERTION GOLD WEIGHT EYELID Paralysis Facial 01/30/2025 4:28 PM CDT REPAIR ECTROPION Paralysis Facial 01/30/2025 4:28 PM CDT GRAFT FASCIA ANUEL Paralysis Facial 01/30/2025 4:28 PM CDT documented as of this encounter Results * (ABNORMAL) EBV DNA Detect/Quant (12/22/2024 3:13 PM CDT) [facility] EBV DNA Detect/Quant, P 116(A) Undetected IU/mL 12/23/2024 3:59 PM CDT [facility] Comment: Result in log IU/mL is 2.06. ----ADDITIONAL INFORMATION---- The quantification range of this assay is 35 to 100,000,000 IU/mL (1.54 log to 8.00 log IU/mL). Testing was performed using the nathalia EBV test ([employer] Blood (Blood, Venous) 12/22/2024 3:13 PM CDT 12/22/2024 5:51 PM CDT Rik Browning M.D., M.S. LAB MICROBIOLOG Y - BLOOD ORDERABLES Final Result [facility] [address] [place] [address] [facility] [address] [place] [address] [place] [address] documented in this encounter Visit Diagnoses Diagnosis Malignant Neoplasm Of Nasopharynx (HCC)- Primary Paralysis Facial documented in this encounter Additional Health Concerns Assessment Noted Time PHQ-9 Depression Total Score: 5 12/20/19 19 2:49 PM CDT documented as of this encounter Care Teams Processing [employer] And [employer] Supervisor Relationship Specialty Start Date End Date Elsewhere, Pcp PCP - General Internal Medicine 10/13/22 documented as of this encounter
--- OUTSIDE RECORDS SUMMARY | 2025-01-05 08:15 | XMS_ITS | Encounter Summary ---
Author Organization [facility] Address [address] [place] [address] Care Team Providers Care Roving Teller Name Role Phone Elsewhere, Pcp Primary Care Provider Unavailabl e Reason for Referral * Outpatient (Routine) - Authorized Specialty Diagnoses / Procedures Referred By Luz wu Referred To Contact Otorhinolaryngology Quirino Bobo M.D. [address] [place] [address] Phone: tel: fax: [facility] Referral ID Status Reason Start Date Expiration Date V isits Requested Visits Authorized [id number] Authorized 01/05/2025 07/07/2026 1 1 Scheduling Instructions 4-6 weeks Post op * Outpatient (Routine) - Authorized Specialty Diagnoses / Procedures Referred By Luz wu Referred To Contact Otorhinolaryngology Quirino Bobo M.D. [address] [place] [address] Phone: tel: fax: [facility] Referral ID Status Reason Start Date Expiration Date V isits Requested Visits Authorized [id number] Authorized 01/05/2025 07/07/2026 1 1 Scheduling Instructions 7-10 Days post op Reason for Visit * Outpatient (Routine) - Closed Specialty Diagnoses / Procedures Referred By Contac t Referred To Contact Otorhinolaryngology Tasneem Grayson M.D. [address] [place] [phone] Phone: tel: fax: Quirino oBbo M.D. [address] [place] [phone] Phone: tel: fax: Referral ID Status Reason Start Date Expiration Date Visits Re quested Visits Authorized [id number] Closed 12/11/2024 06/12/2026 1 1 Encounter Details Date Type Department Care Team (Latest Contact Info) Description 01/05/2025 8:15 AM CDT Office Visit Department of Otorhinolaryngology in [place], [place] [address] [place] [phone] Quirino Bobo M.D. 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 Patient declined 08/29/2022 Do you belong to any clubs o r organizations such as orthodox groups, unions, fraternal or athletic groups, or [...] Answer Date Recorded PHQ-2 Score 0 02/13/2019 [facility] [place] of Occupat ional Health - Occupational Stress [...] your living situation today? I have a [facility] place to live 10/28/2024 Education Answer Date Recorded What is the highest level of school you have completed or the highest degree you have received? Associate degree: occupational, technical, or vocational program 08/29/2022 Sex and Gender Information Value Date Recorded Sex Assigned at Male 11/04/2018 9:57 AM CONCILIATOR Legal Sex Male 4:48 PM CONCILIATOR Gender Identity Male 11/04/2018 9:57 AM CONCILIATOR Sexual Orientation Straight 11/04/2018 9: 57 AM CONCILIATOR documented as of this encounter Progress Notes * Scotty Alfaro P.A.-C. - 01/05/2025 8:15 AM CDT Images from the original note were not included. [facility] RHINOLOGY FOLLOW UP SUBJECTIVE Chief Complaint: Nasopharyngeal carcinoma History of Present Illness: Stew Jj is a 59 y.o. male, presenting with history of nasopharyngeal carcinoma previously managed by my colleagues Drs. Sutton and Paola. 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 His treated with primary chemotherapy and proton radiation 11/25/2018-01/10/2019. He has had a number of procedures with our department. 11/29/2021 -right tympanomastoidectomy and T-tube placement Dr. Hassan 10/12/2022 - nasopharynx biopsy Dr. Sutton (negative for malignancy) 08/21/2023 - Restylane injection Dr. Mckeon 12/13/2023 - fat injection right vocal cord Dr. Mckeon Recall, in March he started having new issues. 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 Also, he had difficulty moving his tongue concerningfor hypoglossal palsy. Finally, he has a complete facial nerve paralysis. 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 Recommendation for biopsy on 11/05/2024 wasmade. Today, he reports ongoing symptoms of discomfort. He was seen in the ED in November with nausea and vomiting. Electrolytes and metabolic panel were overall reassuring at the time. He was treated and improved with Zofran. Today, he describes sensation that his head is spinning and he can't walk well. He also appreciatespain over the right maxillary sinus region. He also describes tightness in his head and lower neck.He notes weakness in his right shoulder as well. He denies epistaxis, nasal pain, hemoptysis or bloody secretions. EBV titers have been elevated as well. A complete list of medications, allergies, past medical history, past surgical history, family history and social history was reviewed and updated in the EMR. ? OBJECTIVE PHYSICAL EXAM: General: Patient doing well overall and is in no apparent distress. Psych: Pleasant affect, and answers questions appropriately. Head & Face: Complete facial palsy on the right (house Brackmann ), left side fully intact Eyes: Right lateral gaze restriction, consistent with cranial nerve 6 palsy Ears: Nose: Anterior rhinoscopy: Septum: straight. More posterior areas of the nasal cavity could not be completely examined. Oral Cavity/Oropharynx: Without lesions or masses to visual exam. Limited right lateral movement ofthe tongue Neck: no lymphadenopathy, with radiation changes. Weakness to shoulder elevation on the right side. Lungs: Non-labored, and without evidence of stridor. Breathy voice Cardiac: Well-perfused. Neuro: right cranial nerve , VII, X, XI and XII deficits as noted PROCEDURE NOTE PROCEDURE Rigid nasal endoscopy. PRE-PROCEDURE DIAGNOSIS/INDICATION FOR PROCEDURE: To evaluate areas not seen on anterior rhinoscopy. ANESTHESIA TYPE 0.5% phenylephrine and 2% lidocaine topical spray. DESCRIPTION OF PROCEDURE A 0 degree 4 mm rigid nasal endoscope was used to examine the left and right nasal cavities. The nasal valve areas were examined for abnormalities or collapse. The inferior and middle turbinates wereevaluated. The middle and superior meati, and the sphenoethmoid recesses were examined and inspected for mucopurulence and polyps. Once the endoscope was withdrawn, the patient was noted to have tolerated the procedure well without complications and was returned to ambulatory status. FINDINGS Septum midline. Inferior turbinates well-appearing. No purulence or polyps bilaterally. No clear mass in the nasopharynx. Previous scar tissue present. 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 Jj and his kids today in follow up. The entire discussion was carried out with the assistance of an in-person medical [facility] customer sales advisor. We discussed that there is concern for recurrent malignancy in the nasopharynx. He has multiple cranial nerve deficits including , VII, X, XI and XII. We discussed options going forward including nasopharyngeal biopsy and treatment thereafter, treatment without biopsy, or deferring treatment. After discussion, the patient wishes to proceed with the biopsy. We discussed the risks, benefits, alternatives, follow up and recovery associated with surgery. We discussed the risks of bleeding, damage to intracranial and intraorbital structures, false negative biopsy, CSF leak, infection, palatal numbness, unlikely risk of strokeor new neurological deficit or the need for subsequent procedures. Recommend ofloxacin drops to the right ear BID for 10 days. Plan: trans-pterygoid skull base biopsy on Sunday as scheduled Nita Leblanc MD Rhinology and Skull Base Surgery [place], [place] Cosigned by Quirino Bobo M.D. at 01/05/2025 12:42 PM CDT Associated attestation - Quirino Bobo M.D. - 01/05/2025 12:42 PM CDT It was a pleasure to see Mr. Jj today in follow up, as noted he has a history of nasopharyngeal carcinoma with concern for recurrence/progression. EBV titers are up trending as well. We had previously scheduled with biopsy which he did not attend. Now interested in moving forward. Discussed recommendation for biopsy, do not expected biopsied improve his current symptoms unfortunately. We discussed risks of bleeding, infection, need for further chemotherapy or immunotherapy (less likely radiation), risk of CSF leak requiring repair, and unlikely risk of internal carotid injury which could belife threatening or cause a significant stroke. He and his family were given an opportunity to ask q uestions and would like to proceed. El Bobo MD Rhinology and Skull Base Surgery [place], [place] documented in this encounter Plan of Treatment Upcoming Encounters Date Type Department Care Team (Latest Contact Info) Description 01/28/2025 12:20 PM CDT Lab Department of Laboratory Medicine and Pathology, [facility], in [place], [place] [address] [place] [phone] German Pierce P.A.-C. [address] [place] [phone] 01/28/2025 2:30 PM CDT Infusion Department of Oncology in [place], [place] [address] [place] [phone] German Pierce P.A.-C. [address] [place] [phone] 01/30/2025 4:28 PM CDT Hospital Encounter Post Anesthesia Care Unit in [place], [place] [address] [place] [phone] Quirino Jackson M.D. [address] [place] [phone] 01/30/2025 4:28 PM CDT - 01/30/2025 7:18 PM CDT Surgery [facility] MAIN OR [address] [place] [phone] Quirino Jackson M.D. [address] [place] [phone] INSERTION LOWER BRULE CHAIN WEIGHT EYELID 02/09/2025 1:45 PM CDT Office Visit Department of Otorhinolaryngology in [place], [place] [address] [place] [phone] Quirino Bobo M.D. [address] [place] [phone] 02/09/2025 3:00 PM CDT Office Visit [facility] in [place], [place] [address] [place] [phone] Quirino Jackson M.D. [address] [place] [phone] 02/10/2025 11:00 AM CDT Lab Department of Laboratory Medicine and Pathology, [facility], in [place], [place] [address] [place] [phone] German Pierce P.A.-C. [address] [place] [phone] 02/10/2025 1:00 PM CDT Office Visit Department of Oncology in [place], [place] [address] [place] [address] Rik Aguirre M.D., M.S. [address] [place] [phone] 02/13/2025 9:45 AM CDT Infusion Department of Oncology in [place], [place] [address] [place] [phone] German Pierce P.A.-Wade [address] [place] [phone] 02/19/2025 10:00 AM CDT Lab Department of Laboratory Medicine and Pathology, [place], [place] [address] [place] [phone] German Pierce P.A.-CCourtney [address] [place] [phone] 02/19/2025 12:00 PM CDT Infusion Department of Oncology in [place], [place] [address] [place] [phone] German Pierce P.A.-CCourtney [address] [place] [phone] 03/03/2025 11:00 AM CDT Lab Department of Laboratory Medicine and Pathology, [place], [place] [address] [place] [phone] German Pierce P.A.-CCourtney [address] [place] [phone] 03/03/2025 1:00 PM CDT Office Visit Department of Oncology in [place], [place] [address] [place] [phone] Rik Aguirre M.D., M.S. [address] [place] [phone] 03/04/2025 7:30 AM CDT Infusion Department of Oncology in [place], [place] [address] [place] [phone] German Pierce P.A.-CCourtney [address] [place] [phone] 03/11/2025 10:00 AM CDT Lab Department of Laboratory Medicine and Pathology, [facility] in [place], [place] [address] [place] [phone] German Pierce P.A.-Wade [address] [place] [phone] 03/11/2025 12:00 PM CDT Infusion Department of Oncology in [place], [place] [address] [place] [phone] German Pierce P.A.-Wade [address] [place] [phone] 03/24/2025 7:10 AM CDT Lab Department of Laboratory Medicine and Pathology, [facility], in [place], [place] [address] [place] [phone] German Pierce P.A.-C. [address] [place] [phone] 03/24/2025 9:20 AM CDT Office Visit Department of Oncology in [place], [place] [address] [place] [phone] Rik Aguirre M.D., M.S. [address] [place] [phone] 03/24/2025 10:15 AM CDT Infusion Department of Oncology in [place], [place] [address] [place] [phone] German Pierce P.A.-Wade [address] [place] [phone] 04/01/2025 11:00 AM CDT Lab Department of Laboratory Medicine and Pathology, [facility] in [place], [place] [address] [place] [phone] Germna Pierce P.A.-C. [address] [place] [phone] 04/01/2025 1:00 PM CDT Infusion Department of Oncology in [place], [place] [address] [place] [phone] German Pierce P.A.-C. [address] [place] [phone] Scheduled Procedures Name Priority Associated Diagnoses Date/Ti me INSERTION GOLD WEIGHT EYELID Paralysis Facial 01/30/2025 4:28 PM CDT REPAIR ECTROPION Paralysis Facial 01/30/2025 4:28 PM CDT GRAFT FASCIA ANUEL Paralysis Facial 01/30/2025 4:28 PM CDT Scheduled Referrals Name Type Priority Associated Diagnoses Order Schedule Otorhinolaryngology Post Op (clinic) Outpatient Referral Routine 1 Occurrences starting 01/05/2025 until 04/06/2026 Otorhinolaryngology Post Op (clinic) Outpatient Referral Routine 1 Occurrences starting 01/05/2025 until 04/06/2026 documented as of this encounter Goals Goal Patient Goal Type Associated Problems Recent Progress Patient-Stated? Author Autogenerat ed Goal Care Plan Autogenerated Problem No Quirino Jackson M.D. documented as of this encounter Visit Diagnoses Diagnosis 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)- Primary Paralysis Facial documented in this encounter Additional Health Concerns Active Problems Noted Date Diagnosed Date Autogenerated Problem 01/05/2025 Assessment Noted Time PHQ-9 Depression Total Score: 5 12/20/19 19 2:49 PM CDT documented as of this encounter Care Teams Roving Teller Relationship Specialty Start Date End Date Elsewhere, Pcp PCP - General Internal Medicine 10/13/22 documented as of this encounter
--- OUTSIDE RECORDS SUMMARY | 2025-01-05 08:45 | XMS_ITS | Encounter Summary ---
Author Organization [facility] Address [address] [place] [address] Care Team Providers Care Nurse Practitioner Physician Assistant Name Role Phone Elsewhere, Pcp Primary Care Provider Unavailabl e Reason for Visit * Outpatient (Routine) - Closed Specialty Diagnoses / Procedures Referred By Luz wu Referred To Contact Otorhinolaryngology Quirino Jackson M.D. [address] [place] [phone] Phone: tel: fax: [facility] Referral ID Status Reason Start Date Expiration Date Visits Re quested Visits Authorized [id number] Closed 12/19/2024 06/20/2026 1 1 Encounter Details Date Type Department Care Team (Late st Contact Info) Description 01/05/2025 8:45 AM CDT [facility] in [place], [place] [address] [place] [phone] Quirino Jackson M.D. [address] [place] [phone] Paralysis Facial (Primary Dx) Social History Tobacco Use Types Packs/Day Years Used Date Smoking Tobacco: Never Passive Smoke Exposure: Never Smokeless Tobacco: Never Alcohol Use Standard Drinks/Week Comments Not Currently 1 (1 standard drink = 0.6 oz pure alcohol) patient states no alcohol in 6+months [facility] Utilities Answer Date Recorded In the past 12 months has th e [employer] gas, oil, or water [employer] threatened to shut off services in your [...] How often do you attend chur or gnosticism services? Patient declined 08/29/2022 Do you belong to any clubs o r organizations such as amish groups, unions, fraternal or athletic groups, or [...] Answer Date Recorded PHQ-2 Score 0 02/13/2019 [facility] - Occupational [...] Sex Assigned at Male 11/04/2018 9:57 AM ARC CUTTER PLASMA ARC Legal Sex Male 4:48 PM ARC CUTTER PLASMA ARC Gender Identity Male 11/04/2018 9:57 AM ARC CUTTER PLASMA ARC Sexual Orientation Straight 11/04/2018 9: 57 AM ARC CUTTER PLASMA ARC documented as of this encounter Progress Notes * Quirino Jackson M.D. - 01/05/2025 8:45 AM CDT Facial Plastic & Reconstructive Surgery - [facility] HISTORY: Interval History: Stew Jj presents for return evaluation regarding his facial paralysis. He continues to have a complete right-sided facial paralysis. His most concerning symptoms related to this are around his eye with incomplete eye closure and drooping of the lower eyelid causing dryness and irritation of the eye. He is using eye drops and ointment but still has discomfort and irritation inthe eye. He also has double vision and wears an eye patch on the right to help with this. He is having a biopsy with Dr. Bobo this Sunday to confirm diagnosis of recurrent malignancy. History Review: Relevant past medical history, past surgical history, social history, family history, medications, and allergies reviewed. EXAM General: Awake, alert, in no acute distress. Appropriate mood and affect, patient cooperative with exam. Skin: Marquez Type 4 Face/Neck: Complete right facial paralysis. Normal facial function on left. Eyes: Pupils equal, round and reactive. Right CHI with lateral gaze restriction consistent with nerve paralysis. Blink lagophthalmos and severe lower eyelid ectropion with incomplete eye closure. Cleaning's phenomenon present. ASSESSMENT & PLAN #1 Facial Paralysis, Right It was a pleasure to see Mr.Pheng Jj today accompanied by his family for return evaluation of facial paralysis. Since I met Mr. Jj initially he has had progression of symptoms with multiple cranial neuropathies as well as interval imaging concerning for recurrent malignancy. He is scheduled this Sunday for a biopsy to confirm this with Dr. Bobo. In light of this, we discussed focusing our facial reanimation efforts around his eye as that is his area primary concern. He would still like to be able to see out of the eye. He is also concerned about double vision. I discussed with him a plan that will improve his eyelid closure and comfort to include: Upper eyelid 1.2 g chenega chain weight Complex lower eyelid ectropion repair with fascia tara sling and lateral tarsal strip We discussed this surgery including risks, benefits, alternatives, and expected recovery. Selected a tentative surgical date of 01/30/2025. At this time we will hold off on additional facial reanimation, but can revisit this in the future once we have a better understanding of his prognosis and goals of care. He is also interested in surgery to improve his double vision. We will refer to Ophthalmology to evaluate for strabismus surgery. Today, I personally spent 10 minutes in direct face to face time with the patient, of which greaterthan 50% of the time was spent in patient education, counseling, and coordination of care as described above. This time does not include additional time spent on any associated procedures. documented in this encounter Plan of Treatment Upcoming Encounters Date Type Department Care Team (Latest Contact Info) Description 01/28/2025 12:20 PM CDT Lab Department of Laboratory Medicine and Pathology, [facility] in [place], [place] [address] [place] [phone] German Pierce P.A.-C. [address] [place] [phone] 01/28/2025 2:30 PM CDT Infusion Department of Oncology in [place], [place] [address] [place] [phone] German Pierce P.ABrooksCCourtney [address] [place] [phone] 01/30/2025 4:28 PM CDT Hospital Encounter Post Anesthesia Care Unit in [place], [place] [address] [place] [phone] Quirino Jackson M.D. [address] [place] [phone] 01/30/2025 4:28 PM CDT - 01/30/2025 7:18 PM CDT Surgery [facility] MAIN OR [address] [place] [phone] Quirino Jackson M.D. [address] [place] [phone] INSERTION PORT GAMBLE CHAIN WEIGHT EYELID 02/09/2025 1:45 PM CDT Office Visit Department of Otorhinolaryngology in [place], [place] [address] [place] [phone] Quirino Bobo M.D. [address] [place] [phone] 02/09/2025 3:00 PM CDT Office Visit [facility] in [address] [phone] Quirino Jackson M.D. [address] [place] [phone] 02/10/2025 11:00 AM CDT Lab Department of Laboratory Medicine and Pathology, [facility], in [address] [phone] German Pierce, P.A.-CCourtney [address] [place] [phone] 02/10/2025 1:00 PM CDT Office Visit Department of Oncology in [address] [phone] Rik Aguirre M.D., M.S. [address] [place] [phone] 02/13/2025 9:45 AM CDT Infusion Department of Oncology in [address] [phone] German Pierce, P.A.-CCourtney [address] [place] [phone] 02/19/2025 10:00 AM CDT Lab Department of Laboratory Medicine and Pathology, [facility] in [place], [place] [address] [place] [phone] German Pierce P.A.-C. [address] [place] [phone] 02/19/2025 12:00 PM CDT Infusion Department of Oncology in [place], [place] [address] [place] [phone] German Pierce P.A.-C. [address] [place] [phone] 03/03/2025 11:00 AM CDT Lab Department of Laboratory Medicine and Pathology, [facility] in [place], [place] [address] [place] [phone] German Pierce P.A.-C. [address] [place] [phone] 03/03/2025 1:00 PM CDT Office Visit Department of Oncology in [place], [place] [address] [place] [phone] Rik Aguirre M.D., M.S. [address] [place] [phone] 03/04/2025 7:30 AM CDT Infusion Department of Oncology in [place], [place] [address] [place] [phone] German Pierce P.A.-C. [address] [place] [phone] 03/11/2025 10:00 AM CDT Lab Department of Laboratory Medicine and Pathology, [place], [place] [address] [place] [phone] German Pierce P.A.-C. [address] [place] [phone] 03/11/2025 12:00 PM CDT Infusion Department of Oncology in [place], [place] [address] [place] [phone] German Pierce P.A.-C. [address] [place] [phone] 03/24/2025 7:10 AM CDT Lab Department of Laboratory Medicine and Pathology, [facility] in [place], [place] [address] [place] [phone] German Pierce P.A.-Wade [address] [place] [phone] 03/24/2025 9:20 AM CDT Office Visit Department of Oncology in [address] [phone] Rik Aguirre M.D., M.S. [address] [place] [phone] 03/24/2025 10:15 AM CDT Infusion Department of Oncology in [place], [place] [address] [place] [phone] German Pierce P.A.-C. [address] [place] [phone] 04/01/2025 11:00 AM CDT Lab Department of Laboratory Medicine and Pathology, [facility] in [place], [place] [address] [place] [phone] German Pierce P.A.-C. [address] [place] [phone] 04/01/2025 1:00 PM CDT Infusion Department of Oncology in [place], [place] [address] [place] [phone] German Pierce P.A.-C. [address] [place] [phone] Scheduled Procedures Name Priority Associated Diagnoses Date/Ti me INSERTION GOLD WEIGHT EYELID Paralysis Facial 01/30/2025 4:28 PM CDT REPAIR ECTROPION Paralysis Facial 01/30/2025 4:28 PM CDT GRAFT FASCIA TARA Paralysis Facial 01/30/2025 4:28 PM CDT documented as of this encounter Goals Goal Patient Goal Type Associated Problems Recent Progress Patient-Stated? Author Autogenerat ed Goal Care Plan Autogenerated Problem No Quirino Jackson M.D. documented as of this encounter Visit Diagnoses Diagnosis Paralysis Facial- Primary Paralysis Facial documented in this encounter Additional Health Concerns Active Problems Noted Date Diagnosed Date Autogenerated Problem 01/05/2025 Assessment Noted Time PHQ-9 Depression Total Score: 5 12/20/19 19 2:49 PM CDT documented as of this encounter Care Teams Nurse Practitioner Physician Assistant Relationship Specialty Start Date End Date Elsewhere, Pcp PCP - General Internal Medicine 10/13/22 documented as of this encounter
--- OUTSIDE RECORDS SUMMARY | 2025-01-05 09:20 | XMS_ITS | Encounter Summary ---
Author Organization [facility] Address [address] [place] [address] Care Team Providers Care Air Reduction Equipment Operator Name Role Phone Elsewhere, Pcp Primary Care Provider Unavailabl e Encounter Details Date Type Department Care Team (Latest Contact Info) Description 01/05/2025 9:20 AM CDT - 01/05/2025 11:14 AM CDT Hospital Encounter Department of Laboratory Medicine and Pathology, [facility], in [place], [place] [address] [place] [phone] Quirino Jackson M.D. [address] [place] [phone] Otorrhea Right Ear; Anemia Discharge Disposition: Home or Self Care Social History Tobacco Use Types Packs/Day Years Used Date Smoking Tobacco: Never Passive Smoke Exposure: Never Smokeless Tobacco: Never Alcohol Use Standard Drinks/Week Comments Not Currently 1 (1 standard drink = 0.6 oz pure alcohol) patient states no alcohol in 6+months [facility] Utilities Answer Date Recorded In the past 12 months has [facility] [employer], gas, oil, or water company threatened to [...] week 08/29/2022 How often do you attend [facility] or orthodox services? Patient declined 08/29/2022 Do you belong to any clubs o r organizations such as rastafari groups, unions, fraternal or athletic groups, or [...] Answer Date Recorded PHQ-2 Score 0 02/13/2019 [facility] ional Health - Occupational Stress [...] your living situation today? I have a [facility] place to live 10/28/2024 Education Answer Date Recorded What is the highest level of school you have completed or the highest degree you have received? Associate degree: occupational, technical, or vocational program 08/29/2022 Sex and Gender Information Value Date Recorded Sex Assigned at Male 11/04/2018 9:57 AM RADIATION ONCOLOGY MANAGER Legal Sex Male 4:48 PM RADIATION ONCOLOGY MANAGER Gender Identity Male 11/04/2018 9:57 AM RADIATION ONCOLOGY MANAGER Sexual Orientation Straight 11/04/2018 9: 57 AM RADIATION ONCOLOGY MANAGER documented as of this encounter Medications at Time of Discharge acetaminophen (TYLENOL) 500 mg tablet Take 2 tablets (1,000 mg total) by mouth every 6 (six) hours. 3 ADEK multivitamins with minerals (MVW Complete Formulation) 37.5 mcg-1,000 mcg chewable tablet Chew 1 tablet daily. 60 tablet 2 5 erythromycin (ROMYCIN) 5 mg/gram (0.5 %) ophthalmic ointment Apply 1 cm to both eyes daily as needed. 3 fluoride, sodium, (PREVIDENT) 1.1 % gel dental gel Apply 1 Application to the mouth or throat daily. Winder, Floss, Rinse. Apply a thin ribbon to trays for 5 minutes preferably at bedtime: expectorate gel and do not eat, drink, or rinse for 30 minutes. 56 g 11 4 HYDROcodone-acetami nophen ([place]) 5-325 mg per tabletIndications:P rolonged Acute Pain/Traumatic Injury Take 1 tablet by mouth every 6 (six) hours as needed for pain for up to 30 doses Indication: Prolonged Acute Pain/Traumatic Injury. 30 tablet 12/11/2024 2:33 PM CDT 5 ibuprofen (ADVIL,MOTRIN) 200 mg tablet Take 3 tablets (600 mg total) by mouth every 6 (six) hours as needed for pain. 3 meclizine (Antivert) 25 mg tablet Take 1 tablet (25 mg total) by mouth as needed for dizziness. 30 tablet 10/31/2024 3:32 PM RADIATION ONCOLOGY MANAGER 5 ondansetron ODT (Zofran-ODT) 4 mg disintegrating tablet Dissolve 4 mg in the mouth as needed for nausea or vomiting. 5 pentoxifylline (TRENtal) 400 mg ER tablet Take 1 tablet (400 mg total) by mouth 3 (three) times a day with meals. 270 tablet 3 12/11/2024 2:32 PM CDT 5 prednisoLONE acetate (PRED FORTE) 1 % ophthalmic suspension Administer 2 drops into both eyes 2 (two) times a day as needed. 2 sodium chloride 0.9 % nebulizer solution Inhale 5 mL by nebulization as needed (tracheal secretions). 90 mL 12 4 Systane, propylene glycoL, 0.4-0.3 % ophthalmic solution Administer 1 drop into both eyes 4 (four) times a day as needed for dry eyes. INSTILL 1 DROP INTO EACH EYE 4 TIMES A DAY// KT 1 NCOS BOUCHRA 2 SAB QHOV MUAG, 1 HNUB 4 ZAUG 3 vitamin E 180 mg (400 Unit) capsule Take 1 capsule (180 mg total) by mouth daily. 90 capsule 1 3 documented as of this encounter Plan of Treatment Upcoming Encounters Date Type Department Care Team (Latest Contact Info) Description 01/28/2025 12:20 PM CDT Lab Department of Laboratory Medicine and Pathology, [facility], in [place], [place] [address] [place] [phone] German Pierce, PCourtneyACourtney-CCourtney [address] [place] [phone] 01/28/2025 2:30 PM CDT Infusion Department of Oncology in [place], [place] [address] [place] [phone] German Pierce PCourtneyACourtney-CCourtney [address] [place] [phone] 01/30/2025 4:28 PM CDT Hospital Encounter Post Anesthesia Care Unit in [address] [phone] Quirino Jackson M.D. [address] [place] [phone] 01/30/2025 4:28 PM CDT - 01/30/2025 7:18 PM CDT Surgery [facility] MAIN OR [address] [place] [phone] Quirino Jackson M.D. [address] [place] [phone] INSERTION KASHIA CHAIN WEIGHT EYELID 02/09/2025 1:45 PM CDT Office Visit Department of Otorhinolaryngology in [place], [place] [address] [place] [phone] Quirino Bobo M.D. [address] [place] [phone] 02/09/2025 3:00 PM CDT Office Visit [facility] in [place], [place] [address] [place] [phone] Quirino Jackson M.D. [address] [place] [phone] 02/10/2025 11:00 AM CDT Lab Department of Laboratory Medicine and Pathology, [facility] in [address] [phone] German Pierce P.A.-CCourtney [address] [place] [phone] 02/10/2025 1:00 PM CDT Office Visit Department of Oncology in [place], [place] [address] [place] [phone] Rik Aguirre M.D., M.S. [address] [place] [phone] 02/13/2025 9:45 AM CDT Infusion Department of Oncology in [place], [place] [address] [place] [phone] German Pierce P.A.-CCourtney [address] [place] [phone] 02/19/2025 10:00 AM CDT Lab Department of Laboratory Medicine and Pathology, [facility] in [address] [phone] FaGerman Linn P.A.-C. [address] [place] [phone] 02/19/2025 12:00 PM CDT Infusion Department of Oncology in [place], [place] [address] [place] [phone] German Pierce P.A.-C. [address] [place] [phone] 03/03/2025 11:00 AM CDT Lab Department of Laboratory Medicine and Pathology, [place], [place] [address] [place] [phone] German Pierce P.A.-C. [address] [place] [phone] 03/03/2025 1:00 PM CDT Office Visit Department of Oncology in [place], [place] [address] [place] [phone] Rik Aguirre M.D., M.S. [address] [place] [phone] 03/04/2025 7:30 AM CDT Infusion Department of Oncology in [place], [place] [address] [place] [phone] German Pierce P.A.-C. [address] [place] [phone] 03/11/2025 10:00 AM CDT Lab Department of Laboratory Medicine and Pathology, [facility] in [place], [place] [address] [place] [phone] German Pierce P.A.-C. [address] [place] [phone] 03/11/2025 12:00 PM CDT Infusion Department of Oncology in [place], [place] [address] [place] [phone] German Pierce P.A.-C. [address] [place] [phone] 03/24/2025 7:10 AM CDT Lab Department of Laboratory Medicine and Pathology, [facility] in [place], [place] [address] [place] [phone] German Pierce P.A.-Wade [address] [place] [phone] 03/24/2025 9:20 AM CDT Office Visit Department of Oncology in [place], [place] [address] [place] [phone] Rik Aguirre M.D., M.S. [address] [place] [phone] 03/24/2025 10:15 AM CDT Infusion Department of Oncology in [place], [place] [address] [place] [phone] German Pierce P.A.-Wade [address] [place] [phone] 04/01/2025 11:00 AM CDT Lab Department of Laboratory Medicine and Pathology, [facility], in [place], [place] [address] [place] [phone] German Pierce P.A.-C. [address] [place] [phone] 04/01/2025 1:00 PM CDT Infusion Department of Oncology in [place], [place] [address] [place] [phone] German Pierce P.A.-C. [address] [place] [phone] Scheduled Procedures Name Priority Associated Diagnoses Date/Ti [...] Jackson M.D. documented as of this encounter Procedures Procedure Name Priority Date/Time Associated Diagnosis Comments CBC-PREOP WITH REFLEX ANEMIA PANEL Routine 01/05/2025 9:58 AM CDT Anemia CREATININE WITH EGFR, S/P Routine 01/05/2025 9:58 AM CDT Otorrhea Right Ear documented in this encounter Results * (ABNORMAL) CBC-Preop with reflex anemia panel (01/05/2025 9:58 AM CDT) Hemoglobin 14.2 13.2 - 16.6 g/dL 01/05/2025 11:26 AM CDT DTL Hematocrit 44.7 38.3 - 48.6 % 01/05/2025 11:26 AM CDT DTL Erythrocytes 4.98 4.35 - 5.65 x10(12)/L 01/05/2025 11:26 AM CDT DTL MCV 89.8 78.2 - 97.9 fL 01/05/2025 11:26 AM CDT DTL RBC Distrib Width 12.9 11.8 - 14.5 % 01/05/2025 11:26 AM CDT DTL Platelet Count 336(H) 135 - 317 x10(9)/L 01/05/2025 11:26 AM CDT DTL Leukocytes 4.7 3.4 - 9.6 x10(9)/L 01/05/2025 11:26 AM CDT DTL Blood (Blood, Venous) 01/05/2025 9:58 AM CDT 01/05/2025 10:33 AM CDT Narrative [facility] - 01/05/2025 11:26 AM CDT Specimen Information: Specimen ID: [id number] Specimen Type: Blood Specimen Collection Start Date: 01/05/2025 9:58 AM Specimen Received Date: 01/05/2025 10:33 AM Specimen ID: [id number] Specimen Type: Blood Specimen Collection Start Date: 01/05/2025 9:58 AM Specimen Received Date: 01/05/2025 10:21 AM us Xochilt Moser APRN, C.N.P., D.N.P. LAB BLOO D ADD-ON Final Result Performing Organization Address City/[facility]/ZIP Co de Phone Number [facility] [address] [facility] [address] [place] [address] * Creatinine with Estimated GFR (01/05/2025 9:58 AM CDT) Creatinine 1.32 0.74 - 1.35 mg/dL 01/05/2025 10:58 AM CDT DTL Estimated GFR (eGFR) 63 >=60 mL/min/BSA 01/05/2025 10:58 AM CDT DTL Comment: Estimated GFR calculated using the 2020 CKD_EPI creatinine equation. Blood (Blood, Venous) 01/05/2025 9:58 AM CDT 01/05/2025 10:33 AM CDT us Quirino Jackson M.D. LAB BLOOD ADD-ON Final Result Performing Organization Address City/[facility]/ZIP Co de Phone Number [facility] [address] [facility] [address] [place] [address] documented in this encounter Visit Diagnoses Diagnosis Otorrhea Right Ear Anemia Paralysis Facial documented in this encounter Additional Health Concerns Active Problems Noted Date Diagnosed Date Autogenerated Problem 01/05/2025 Assessment Noted Time PHQ-9 Depression Total Score: 5 12/20/19 19 2:49 PM CDT documented as of this encounter Care Teams Air Reduction Equipment Operator Relationship Specialty Start Date End Date Elsewhere, Pcp PCP - General Internal Medicine 10/13/22 documented as of this encounter
--- OUTSIDE RECORDS SUMMARY | 2025-01-05 10:45 | XMS_ITS | Encounter Summary ---
Author Organization [facility] Address [address] [place] [id number] Care Team Providers Care Field Pipe Lines Supervisor Name Role Phone Elsewhere, Pcp Primary Care Provider Unavailabl e Reason for Visit * Outpatient (Routine) - Closed Specialty Diagnoses / Procedures Referred By Luz wu Referred To Contact Otorhinolaryngology Quirino Jackson M.D. [address] [place] [address] Phone: tel: fax: Keke Mckeon M.D. [address] [place] [address] Phone: tel: fax: Referral ID Status Reason Start Date Expiration Date Visits Re quested Visits Authorized [id number] Closed 10/27/2024 04/28/2026 1 1 Encounter Details Date Type Department Care Team (Latest Contact Info) Description 01/05/2025 10:45 AM CDT Office Visit Department of Otorhinolaryngology in [place], [place] [address] [place] [address] Keke Mckeon M.D. 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 Patient declined 08/29/2022 Do you belong to any clubs o r organizations such as druze groups, unions, fraternal or athletic groups, or [...] Answer Date Recorded PHQ-2 Score 0 02/13/2019 [facility] - [...] living situation today? I have a [facility] [place] [facility] to live 10/28/2024 Education Answer Date Recorded What is the highest level of school you have completed or the highest degree you have received? Associate degree: occupational, technical, or vocational program 08/29/2022 Sex and Gender Information Value Date Recorded Sex Assigned at Male 11/04/2018 9:57 AM HAND TACKER Legal Sex Male 4:48 PM HAND TACKER Gender Identity Male 11/04/2018 9:57 AM HAND TACKER Sexual Orientation Straight 11/04/2018 9: 57 AM HAND TACKER documented as of this encounter Progress Notes * Keke Mckeon M.D. - 01/05/2025 10:45 AM CDT Images from the original note were not included. [facility] CHIEF COMPLAINT/PURPOSE OF VISIT: Follow up HISTORY OF PRESENT ILLNESS: Mr. Jj is a 59 y.o. gentleman presenting for follow up of hoarseness. 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 Earlier today, he saw Dr. El Bobo, ENT, and Scotty Alfaro PA-C, and plan is to proceed with a nasopharyngeal biopsy on January 09, 2025. He is known to our team and has a right vocal fold paralysis. He underwent a right true vocal fold Restylane injection on August 21, 2023 and a right true vocal fold fat injection on December 13, 2023. He returns to today for follow-up. The services of a [employer] rate engineer were utilized today. Ms. Jj reported that his voice improved following the fat injection and has remained stable. He does continue to report some increased effort with speaking and vocal fatigue. He has intermittent coughing when swallowing but overall does ok if he is careful to take small sips. Unfortunately, he is undergoing workup right now for concerns of recurrence. Social History[1] PHYSICAL EXAM: General: Resting comfortably, no stridor. Conversational voice is very mildly breathy and hypernasal. ENT: Oral Cavity without lesions. Oropharynx normal. Neck: Supple without lymphadenopathy. PROCEDURE NOTE Flexible laryngostroboscopy: Verbal consent obtained and universal protocol followed. In order to evaluate the chief complaint, a flexible laryngoscopy with videostroboscopy was performed as a separate identifiable procedure. Two percent lidocaine with phenylephrine was instilled into the right andleft nares. The flexible scope was passed. The larynx was examined, specifically the supraglottis, true vocal folds, and subglottis. Vocal fold adduction and abduction were assessed. The true vocal folds, arytenoids, and interarytenoid spaces were closely visualized to confirm presence or absence of erythema, edema, or structural lesions. Videostroboscopy was performed to evaluate the vibratory potential and closure patterns of the truevocal folds. Mucosal wave and amplitude were assessed for symmetry. Periodicity and glottic closurewere evaluated. The scope was removed. Specific findings:The nasal cavity was normal. Adenoids are absent. Nasopharynx has radiation change. The tongue base was clear without significant lingual tonsil tissue. The hypopharynx is normal though there significant retained secretions through out the hypopharynx and larynx. The right arytenoid is immobile with mild hooding. The left arytenoid is fully mobile.There is incomplete glottic closure with phonation. The vocal edge is smooth and straight without concerning lesions on the left. On the right, there is bulk from his fat injection. The mucosal wave could not be evaluated secondaryto the level of glottic gap.. The subglottis is normal. There is no significant interarytenoid or seamus arytenoid edema or erythema. IMPRESSION: 1. Paralysis Vocal Cord Unilateral Complete 2. Dysfunction Velopharyngeal Acquired 3. Radiation Sequela 4. 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 Jj back in clinic today. We discussed that the fat injection has improved his closure though he does still have a gap. We could certainly consider further fat injectionfor him though I would advise we wait until his biopsies come back. We again discussed that the VPIaspects of his voice deficits unfortunately could not be addressed given the level of radiation change he has to his tissue. He understands this. I will wait until he a better understanding of his prognosis and goals of care before we make a decision about fat injection. PATIENT EDUCATION Ready to learn, no apparent learning barriers were identified; learning preferences include listening. Explained diagnosis and treatment plan; patient expressed understanding of the content. [1] Social History Tobacco Use Smoking status: Never Passive exposure: Never Smokeless tobacco: Never Vaping Use Vaping status: never used Substance Use Topics Alcohol use: Not Currently Alcohol/week: 1.0 standard drink of alcohol Types: 1 Cans of beer per week Comment: patient states no alcohol in 6+months Drug use: No documented in this encounter Plan of Treatment Upcoming Encounters Date Type Department Care Team (Latest Contact Info) Description 01/28/2025 12:20 PM CDT Lab Department of Laboratory Medicine and Pathology, [facility], in [place], [place] [address] [place] [phone] German Pierce, P.A.-CCourtney [address] [place] [phone] 01/28/2025 2:30 PM CDT Infusion Department of Oncology in [place], [place] [address] [place] [phone] German Pierce, P.A.-CCourtney [address] [place] [phone] 01/30/2025 4:28 PM CDT Hospital Encounter Post Anesthesia Care Unit in [place], [place] [address] [place] [phone] Quirino Jackson M.D. [address] [place] [phone] 01/30/2025 4:28 PM CDT - 01/30/2025 7:18 PM CDT Surgery [facility] OR [address] [place] [phone] Quirino Jackson M.D. [address] [place] [phone] INSERTION [employer] 02/09/2025 1:45 PM CDT Office Visit Department of Otorhinolaryngology in [place], [place] [address] [place] [phone] Quirino Bobo M.D. [address] [place] [phone] 02/09/2025 3:00 PM CDT [facility] in [place], [place] [address] [place] [phone] Quirino Jackson M.D. [address] [place] [phone] 02/10/2025 11:00 AM CDT Lab Department of Laboratory Medicine and Pathology, [facility] in [address] [phone] German Pierce, PCourtneyACourtney-CCourtney [address] [place] [phone] 02/10/2025 1:00 PM CDT Office Visit Department of Oncology in [address] [phone] Rik Aguirre M.D., M.S. [address] [place] [phone] 02/13/2025 9:45 AM CDT Infusion Department of Oncology in [address] [phone] German Pierce, PCourtneyACourtney-CCourtney [address] [place] [phone] 02/19/2025 10:00 AM CDT Lab Department of Laboratory Medicine and Pathology, [facility] in [place], [place] [address] [place] [address] [place] [phone] German Pierce P.A.-C. [address] [place] [phone] 02/19/2025 12:00 PM CDT Infusion Department of Oncology in [place], [place] [address] [place] [phone] German Pierce P.A.-Wade [address] [place] [phone] 03/03/2025 11:00 AM CDT Lab Department of Laboratory Medicine and Pathology, [facility] in [place], [place] [address] [place] [phone] German Pierce P.A.-C. [address] [place] [phone] 03/03/2025 1:00 PM CDT Office Visit Department of Oncology in [place], [place] [address] [place] [phone] Rik Aguirre M.D., M.S. [address] [place] [phone] 03/04/2025 7:30 AM CDT Infusion Department of Oncology in [place], [place] [address] [place] [phone] German Pierce P.A.-C. [address] [place] [phone] 03/11/2025 10:00 AM CDT Lab Department of Laboratory Medicine and Pathology, [facility] in [place], [place] [address] [place] [address] German Pierce P.A.-C. [address] [place] [phone] 03/11/2025 12:00 PM CDT Infusion Department of Oncology in [place], [place] [address] [place] [phone] German Pierce P.A.-C. [address] [place] [phone] 03/24/2025 7:10 AM CDT Lab Department of Laboratory Medicine and Pathology, [facility] in [place], [place] [address] [place] [phone] German Pierce P.A.-C. [address] [place] [phone] 03/24/2025 9:20 AM CDT Office Visit Department of Oncology in [place], [place] [address] [place] [phone] Rik Aguirre M.D., M.S. [address] [place] [phone] 03/24/2025 10:15 AM CDT Infusion Department of Oncology in [place], [place] [address] [place] [phone] German Pierce P.A.-C. [address] [place] [phone] 04/01/2025 11:00 AM CDT Lab Department of Laboratory Medicine and Pathology, [facility] in [place], [place] [address] [place] [phone] German Pierce P.A.-C. [address] [place] [phone] 04/01/2025 1:00 PM CDT Infusion Department of Oncology in [place], [place] [address] [place] [address] German Pierce P.A.-C. 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
--- OUTSIDE RECORDS SUMMARY | 2025-01-05 11:15 | XMS_ITS | Encounter Summary ---
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 [address] [place] [address] Phone: tel: fax: [facility] Referral ID Status Reason Start Date Expiration Date Visits Re quested Visits Authorized [id number] Closed 10/27/2024 01/27/2026 1 1 Reason for Visit * MRI/CAT/PET Scan (Routine) - Closed Specialty Diagnoses / Procedures Referred By Luz wu Referred To Contact Radiology Diagnoses Otorrhea Right Ear Procedures CT Temporal Bone without IV Contrast CT Temporal Bone with IV Contrast NE CT ORBIT/EAR/FOSSA W CNTRST NE CT ORBIT/EAR/FOSSA WO CNTRST Quirino Jackson M.D. [address] [place] [address] Phone: tel: fax: [facility] Referral ID Status Reason Start Date Expiration Date Visits Re quested Visits Authorized [id number] Closed 10/27/2024 01/27/2026 1 1 Encounter Details Date Type Department Care Team (Latest Contact Info) Description 01/05/2025 11:15 AM CDT - 01/05/2025 11:59 PM CDT Hospital Encounter Department of Radiology, [facility], in [place], [place] [address] [place] [address] Quirino Jackson M.D. [address] [place] [address] Otorrhea Right Ear Discharge Disposition: Home or Self Care Social History Tobacco Use Types Packs/Day Years Used Date Smoking Tobacco: Never Passive Smoke Exposure: Never Smokeless Tobacco: Never Alcohol Use Standard Drinks/Week Comments Not Currently 1 (1 standard drink = 0.6 oz pure alcohol) patient states no alcohol in 6+months [facility] Utilities Answer Date Recorded In the past 12 months has [facility] [employer], gas, oil, or water [employer] threatened to shut off services in your [...] often do you attend chur ch or baptist services? Patient declined 08/29/2022 Do you belong to any clubs o r organizations such as yarsanism groups, unions, fraternal or athletic groups, or [...] Answer Date Recorded PHQ-2 Score 0 02/13/2019 [facility] - [...] your living situation today? I have a [facility] place to live 10/28/2024 Education Answer Date Recorded What is the highest level of school you have completed or the highest degree you have received? 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 Elmer, Floss, Rinse. Apply a thin ribbon to trays for 5 minutes preferably at bedtime: expectorate gel and do not eat, drink, or rinse for 30 minutes. 56 g 11 4 HYDROcodone-acetami nophen ([place]) 5-325 mg per tabletIndications:P rolonged Acute Pain/Traumatic [...] for dizziness. 30 tablet 10/31/2024 3:32 PM SHEET METAL LAYOUT WORKER 5 ondansetron ODT (Zofran-ODT) 4 mg disintegrating [...] Lab Department of Laboratory Medicine and Pathology, [facility], in [place] [address] [place] [address] German Pierce, P.A.-C. [address] [place] [phone] 01/28/2025 2:30 PM CDT Infusion Department of Oncology in [place], [place] [address] [place] [phone] German Pierce P.A.-C. [address] [place] [phone] 01/30/2025 4:28 PM CDT Hospital Encounter Post Anesthesia Care Unit in [place], [place] [address] [place] [phone] Quirino Jackson M.D. [address] [place] [phone] 01/30/2025 4:28 PM CDT - 01/30/2025 7:18 PM CDT Surgery RST ROMB MAIN OR [address] [place] [phone] Quirino Jackson M.D. [address] [place] [phone] INSERTION ANIAK CHAIN WEIGHT EYELID 02/09/2025 1:45 PM CDT Office Visit Department of Otorhinolaryngology in [place], [place] [address] [place] [phone] Quirino Bobo M.D. [address] [place] [phone] 02/09/2025 3:00 PM CDT Office Visit [facility] in [place], [place] [address] [place] [phone] Quirino Jackson M.D. [address] [place] [phone] 02/10/2025 11:00 AM CDT Lab Department of Laboratory Medicine and Pathology, [facility] in [place], [place] [address] [place] [phone] German Pierce P.A.-C. [address] [place] [phone] 02/10/2025 1:00 PM CDT Office Visit Department of Oncology in [place], [place] [address] [place] [phone] Rik Aguirre M.D., M.S. [address] [place] [phone] 02/13/2025 9:45 AM CDT Infusion Department of Oncology in [place], [place] [address] [place] [phone] German Pierce P.A.-C. [address] [place] [phone] 02/19/2025 10:00 AM CDT Lab Department of Laboratory Medicine and Pathology, [facility] in [place], [place] [address] [place] [phone] German Pierce P.A.-C. [address] [place] [phone] 02/19/2025 12:00 PM CDT Infusion Department of Oncology in [place], [place] [address] [place] [phone] German Pierce P.A.-C. [address] [place] [phone] 03/03/2025 11:00 AM CDT Lab Department of Laboratory Medicine and Pathology, [facility], in [place], [place] [address] [place] [phone] German Pierce P.A.-C. [address] [place] [phone] 03/03/2025 1:00 PM CDT Office Visit Department of Oncology in [place], [place] [address] [place] [address] Rik Aguirre M.D., M.S. [address] [place] [phone] 03/04/2025 7:30 AM CDT Infusion Department of Oncology in [place], [place] [address] [place] [phone] German Pierce P.A.-Wade [address] [place] [phone] 03/11/2025 10:00 AM CDT Lab Department of Laboratory Medicine and Pathology, [place], [place] [address] [place] [address] German Pierce P.A.-C. [address] [place] [phone] 03/11/2025 12:00 PM CDT Infusion Department of Oncology in [place], [place] [address] [place] [address] German Pierce P.A.-CCourtney [address] [place] [phone] 03/24/2025 7:10 AM CDT Lab Department of Laboratory Medicine and Pathology, [facility] in [place], [place] [address] [place] [address] German Pierce P.A.-C. [address] [place] [phone] 03/24/2025 9:20 AM CDT Office Visit Department of Oncology in [place], [place] [address] [place] [phone] Rik Aguirre M.D., M.S. [address] [place] [phone] 03/24/2025 10:15 AM CDT Infusion Department of Oncology in [place], [place] [address] [place] [phone] German Pierce P.A.-C. [address] [place] [phone] 04/01/2025 11:00 AM CDT Lab Department of Laboratory Medicine and Pathology, [facility] in [place], [place] [address] [place] [phone] German Pierce P.A.-C. [address] [place] [phone] 04/01/2025 1:00 PM CDT Infusion Department of Oncology in [address] [phone] German Pierce P.A.-C. [address] [place] [phone] Scheduled Procedures Name Priority Associated Diagnoses Date/Ti [...] Procedure Name Priority Date/Time Associated Diagnosis Comments CT TEMPORAL BONE WITHOUT IV CONTRAST RAD - Routine (most inpatients and all outpatients) 01/05/2025 11:49 AM CDT Otorrhea Right Ear documented in this encounter Results * CT Temporal Bone without IV Contrast (01/05/2025 11:49 AM CDT) Anatomical Region Laterality Modality Head, Neuroradiology RST LOS , Neuroradiology ARZ LOS, Neuroradiology FLA LOS N/A Computed Tomography, Compute d Tomography Impressions 01/05/2025 2:56 PM CDT Similar to MRI, 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 Small dehiscent areas along right tegmen tympani. Narrative 01/05/2025 2:56 PM CDT EXAM: CT TEMPORAL BONE WITHOUT IV CONTRAST COMPARISON: Head MRI 10/29/2024. FINDINGS: In keeping with progressive tumor infiltration noted on the 10/29/2024 MRI there is extensive osteolysis at the right temporal bone and right greater than left skull base. Extensive osteolysis right petrous apex, including about the margins of the right carotid canal including at the horizontal segment as well as at the skull base. Prior right mastoidectomy. Extensive osteolysis along right inferior occipital bone with involvement of right greater than left occipital condyles. Osteolysis about margins of the right jugular foramen. Middle ear is opacified. Right ossicles are visualized. Segmental bony dehiscence along right tegmen tympani. Thin bone overlying right superior semicircular canal although there may be a tiny dehiscence (8/413). Dehiscent bone about upper portions of the mastoid segment of the facial canal with somewhat irregular infiltrative-appearing bone predominantly at medial margins of facial canal as it descends through the petrous bone. No focal abnormality at left temporal bone. Maxillary dental caries and periapical lucencies. Procedure Note Aba Silva Jr., M.D., Ph.D. - 01/05/2025 EXAM: CT TEMPORAL BONE WITHOUT IV CONTRAST COMPARISON: Head MRI 10/29/2024. FINDINGS: In keeping with progressive tumor infiltration noted on the10/29/2024 MRI there is extensive osteolysis at the right temporal boneand right greater than left skull base. Extensive osteolysis right petrous apex, including about the margins ofthe right carotid canal including at the horizontal segment as well as atthe skull base. Prior right mastoidectomy. Extensive osteolysis alongright inferior occipital bone with involvement of right greater than left occipital condyles. Osteolysisabout margins of the right jugular foramen. Middle ear is opacified. Right ossicles are visualized. Segmental bonydehiscence along right tegmen tympani. Thin bone overlying right superiorsemicircular canal although there may be a tiny dehiscence (8/413). Dehiscent bone about upper portions of the mastoid segment of the facialcanal with somewhat irregular infiltrative-appearing bone predominantly atmedial margins of facial canal as it descends through the petrous bone. No focal abnormality at left temporal bone. Maxillary dental caries and periapical lucencies. IMPRESSION: Similar to MRI, extensive metastasis and destructive skull base changesabout right carotid canal, right jugular foramen, right facial nervecanal, and right petrous bone. Small dehiscent areas along right tegmentympani. Quirino Jackson M.D. IMG CT PROCEDURES Final Result documented in this encounter Visit Diagnoses Diagnosis Otorrhea Right Ear Paralysis Facial documented in this encounter Additional Health Concerns Active Problems Noted Date Diagnosed Date Autogenerated Problem 01/05/2025 Assessment Noted Time PHQ-9 Depression Total Score: 5 12/20/19 19 2:49 PM CDT documented as of this encounter Care Teams Flower Shop Laborer/Designer Relationship Specialty Start Date End Date Elsewhere, Pcp PCP - General Internal Medicine 10/13/22 documented as of this encounter
--- OUTSIDE RECORDS SUMMARY | 2025-01-05 15:20 | XMS_ITS | Encounter Summary ---
Author Organization [facility] Address [address] [place] [address] Care Team Providers Care Adjunct Instructor In Economics Name Role Phone Elsewhere, Pcp Primary Care Provider Unavailabl e Encounter Details Date Type Department Care Team (Latest Contact Info) Description 01/05/2025 3:20 PM CDT Ancillary Procedure Department of Otorhinolaryngology Social History Tobacco Use Types Packs/Day Years Used Date Smoking Tobacco: Never Passive Smoke Exposure: Never Smokeless Tobacco: Never Alcohol Use Standard Drinks/Week Comments Not Currently 1 (1 standard drink = 0.6 oz pure alcohol) patient states no alcohol in 6+months [facility] Utilities Answer Date Recorded In the past 12 months has [facility] [employer], gas, oil, or water [employer] threatened to shut off services in your [...] How often do you attend chur or catholic services? Patient declined 08/29/2022 Do you belong to any clubs o r organizations such as zoroastrian groups, unions, fraternal or athletic groups, or [...] Answer Date Recorded PHQ-2 Score 0 02/13/2019 [facility] Occupat ional Health - Occupational [...] your living situation today? I have a [facility] place to live 10/28/2024 Education Answer Date Recorded What is the highest level of school you have completed or the highest degree you have received? 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 200 [place] [phone] 01/28/2025 2:30 PM CDT Infusion Department of Oncology in [place], [place] [address] [place] [phone] Germna Pierce P.A.-C. [address] [place] [phone] 01/30/2025 4:28 PM CDT Hospital Encounter Post Anesthesia Care Unit in [place], [place] [address] [place] [phone] Quirino Jackson M.D. [address] [place] [phone] 01/30/2025 4:28 PM CDT - 01/30/2025 7:18 PM CDT Surgery RST ROMB MAIN OR [address] [place] [phone] Quirino Jackson M.D. [address] [place] [phone] INSERTION WILTON CHAIN WEIGHT EYELID 02/09/2025 1:45 PM CDT Office Visit Department of Otorhinolaryngology in [place], [place] [address] [place] [phone] Quirino Bobo M.D. [address] [place] [phone] 02/09/2025 3:00 PM CDT Office Visit [facility] in [place], [place] [address] [place] [phone] Quirino Jackson M.D. [address] [place] [phone] 02/10/2025 11:00 AM CDT Lab Department of Laboratory Medicine and Pathology, [facility], in [place], [place] [address] [place] [phone] German Pierce P.A.-C. [address] [place] [phone] 02/10/2025 1:00 PM CDT Office Visit Department of Oncology in [place], [place] [address] [place] [phone] Rik Aguirre M.D., M.S. [address] [place] [phone] 02/13/2025 9:45 AM CDT Infusion Department of Oncology in [place], [place] [address] [place] [phone] German Pierce P.A.-Wade [address] [place] [phone] 02/19/2025 10:00 AM CDT Lab Department of Laboratory Medicine and Pathology, [facility] in [place], [place] [address] [place] [phone] German Pierce P.A.-C. [address] [place] [phone] 02/19/2025 12:00 PM CDT Infusion Department of Oncology in [place], [place] [address] [place] [phone] German Pierce P.A.-Wade [address] [place] [phone] 03/03/2025 11:00 AM CDT Lab Department of Laboratory Medicine and Pathology, [facility] in [place], [place] [address] [place] [phone] German Pierce P.A.-C. [address] [place] [phone] 03/03/2025 1:00 PM CDT Office Visit Department of Oncology in [place], [place] [address] [place] [phone] Rik Aguirre M.D., M.S. [address] [place] [phone] 03/04/2025 7:30 AM CDT Infusion Department of Oncology in [place], [place] [address] [place] [phone] German Pierce P.A.-CCourtney [address] [place] [phone] 03/11/2025 10:00 AM CDT Lab Department of Laboratory Medicine and Pathology, [facility] in [place], [place] [address] [place] [phone] German Pierce P.A.-CCourtney [address] [place] [phone] 03/11/2025 12:00 PM CDT Infusion Department of Oncology in [place], [place] [address] [place] [phone] German Pierce P.A.-CCourtney [address] [place] [phone] 03/24/2025 7:10 AM CDT Lab Department of Laboratory Medicine and Pathology, [facility] in [place], [place] [address] [place] [phone] German Pierce P.A.-CCourtney [address] [place] [phone] 03/24/2025 9:20 AM CDT Office Visit Department of Oncology in [address] [place] [phone] Rik Aguirre M.D., M.S. [address] [place] [phone] 03/24/2025 10:15 AM CDT Infusion Department of Oncology in [place], [place] [address] [place] [phone] German Pierce P.ACourtney-CCourtney [address] [place] [phone] 04/01/2025 11:00 AM CDT Lab Department of Laboratory Medicine and Pathology, [facility] in [place], [place] [address] [place] [phone] German Pierce P.ACourtney-CCourtney [address] [place] [phone] 04/01/2025 1:00 PM CDT Infusion Department of Oncology in [place], [place] [address] [place] [phone] German Pierce P.ACourtney-CCourtney [address] [place] [phone] Scheduled Procedures Name Priority Associated Diagnoses Date/Ti [...] Procedure Name Priority Date/Time Associated Diagnosis Comments OTORHINOLARYNGOLOGY IMAGE EXAM Routine 01/05/2025 9:06 AM CDT documented in this encounter Results * Nasal Endoscopy-Otorhinolaryngology Image Exam (01/05/2025 9:06 AM CDT) Narrative [facility] - 01/05/2025 9:06 AM CDT This order has been created and auto-finalized to support the import of images acquired without order. The clinical documentation to support these images can be found on the encounter that produced images. us Provider Not In System IMG NON RAD IMAGING PROCE DURES Final Result [facility] NA documented in this encounter Visit Diagnoses Not on filedocumented in this encounter Additional Health Concerns Active Problems Noted Date Diagnosed Date Autogenerated Problem 01/05/2025 Assessment Noted Time PHQ-9 Depression Total Score: 5 12/20/19 19 2:49 PM CDT documented as of this encounter Care Teams Adjunct Instructor In Economics Relationship Specialty Start Date End Date Elsewhere, Pcp PCP - General Internal Medicine 10/13/22 documented as of this encounter
--- OUTSIDE RECORDS SUMMARY | 2025-01-08 09:20 | XMS_ITS | Encounter Summary ---
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 [address] [place] [phone] Phone: tel: fax: Rik Aguirre M.D., M.S. 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 [address] [place] [phone] Phone: tel: fax: Rik Aguirre M.D., M.S. 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 [address] [place] [phone] Phone: tel: fax: [facility] Referral ID Status Reason Start Date Expiration Date Visits Re quested Visits Authorized Reason for Visit * Outpatient (Routine) - Closed Specialty Diagnoses / Procedures Referred By Luz wu Referred To Contact Oncology Rik Aguirre M.D., M.S. [address] [place] [phone] Phone: tel: fax: [facility] Referral ID Status Reason Start Date Expiration Date Visits Re quested Visits Authorized [id number] Closed 12/31/2024 07/02/2026 1 1 Encounter Details Date Type Department Care Team (Late st Contact Info) Description 01/08/2025 9:20 AM CDT Office Visit Department of Oncology in [place], [place] [address] [place] [phone] German Pierce P.A.-C. 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 [employer], gas, oil, or water [employer] threatened to shut off services in your [...] How often do you attend chur or bahai services? Patient declined 08/29/2022 Do you belong to any clubs o r organizations such as orthodoxy groups, unions, fraternal or athletic groups, or [...] Answer Date Recorded PHQ-2 Score 0 02/13/2019 [facility] [place] [facility] Occupat ional Health - Occupational Stress [...] your living situation today? I have a [facility] place to live 10/28/2024 Education Answer Date Recorded What is the highest level of school you have completed or the highest degree you have received? Associate degree: occupational, technical, or vocational program 08/29/2022 Sex and Gender Information Value Date Recorded Sex Assigned at Male 11/04/2018 9:57 AM LOFTSMAN/WOMAN Legal Sex Male 4:48 PM LOFTSMAN/WOMAN Gender Identity Male 11/04/2018 9:57 AM LOFTSMAN/WOMAN Sexual Orientation Straight 11/04/2018 9: 57 AM LOFTSMAN/WOMAN documented as of this encounter Last Filed Vital Signs Vital Sign Reading Time Taken Comments Blood Pressure 115/73 01/08/2025 9:03 AM CDT Pulse 71 01/08/2025 9:03 AM CDT Temperature 36.4 C (97.5 F) 01/08/2025 9:03 AM CDT Respiratory Rate 16 01/08/2025 9:03 AM CDT Oxygen Saturation 99% 01/08/2025 9:03 AM CDT Inhaled Oxygen Concentration - - Weight 66.6 kg (146 lb 13.2 oz) 01/08/2025 9:03 AM CDT Height 166.8 cm (5' 5.67) 01/08/2025 9:03 AM CD T Body Mass Index 23.94 01/08/2025 9:03 AM CDT documented in this encounter Progress Notes * German Pierce P.A.-C. - 01/08/2025 9:20 AM CDT The patient verbally consented to an audio recording of their visit to assist with the completion of documentation. SUBJECTIVE REASON FOR VISIT Primary Oncologist: Reji Anguiano M.B.B.S., Ph.D. German Pierce P.A.-C. Nasopharyngeal undifferentiated EBV-associated carcinoma, status post two [...] temporal headaches persisting for nearly 2 years. Now rising EBV DNA concerning for disease. HISTORY OF PRESENT ILLNESS Mr. Jj is a 59 y.o. male with the following oncologic history: Oncology History Malignant Neoplasm Of Nasopharynx (HCC) 12/01/2016 Other Reported a several month history of headache. In February underwent a MRI of the brain. 08/23/2018 Biopsy/Pathology While in [facility], underwent CT temporal bone (symptoms of right [...] for Radiation Oncology return visits as well. 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 Jj is a 59 year old male with nasopharyngeal undifferentiated EBV- associated carcinoma who presents for follow-up due to detectable EBV serology. He has a history of nasopharyngeal undifferentiated EBV-associated carcinoma, initially treated with two cycles of induction chemotherapy followed by definitive chemoradiotherapy with weekly cisplatin, completed in January 2019. He has been under surveillance since then, with biopsies from the nasopharynx in October 2022 and July 2024 showing no recurrence and EBV serology undetectable at those times. Approximately two weeks ago, EBV serology was repeated and returned detectable at a level of 116. He has been experiencing chronic temporal headaches for nearly two years, which have persisted since the completion of his initial treatment. These headaches are described as persistent and have elizabeth significant concern for him. He reports numbness and tingling in his fingers or toes occurring at certain times, and constant tinnitus, which started before his cancer diagnosis. No dizziness or steadiness issues are noted, and he mentions 'walking a little bit better' with the use of an eye covering. OBJECTIVE VITAL SIGNS BP 115/73 (BP Location: Left arm, Patient Position: Sitting, Cuff Size: Regular) Pulse 71 Temp 36.4 ??C (Tympanic) Resp 16 Ht 166.8 cm Wt 66.6 kg SpO2 99% BMI 23.94 kg/m?? PHYSICAL EXAMINATION General: Very pleasant 59 y.o. male, in no acute distress. Ambulates without difficulty. Skin: No rashes or lesions present. Neuro: Alert and oriented. No focal neurologic deficits. ECOG score 1. DIAGNOSTICS I reviewed CBC, CMP, Magnesium and TSH. ASSESSMENT / PLAN Assessment & Plan Nasopharyngeal carcinoma recurrence EBV serology at 116 suggests recurrence despite previous negative biopsies. Decision to initiate chemoimmunotherapy without further biopsy. Treatment plan includes cisplatin, gemcitabine, and toripalimab. Discussed treatment schedule and potential side effects. Preference to continue treatment at current facility. - Initiate chemoimmunotherapy with cisplatin, gemcitabine, and toripalimab. - Monitor EBV levels and perform imaging after three cycles. - Provide education on treatment schedule and side effects. - Encourage hydration to protect renal function. Peripheral neuropathy Intermittent numbness and tingling in fingers and toes. Cisplatin may exacerbate symptoms. - Monitor for worsening of peripheral neuropathy symptoms during treatment. Tinnitus Persistent tinnitus predating cancer diagnosis. Cisplatin may worsen condition. - Monitor for worsening of tinnitus during treatment. Chronic temporal headaches Chronic temporal headaches persisting for nearly two years. Cancer Staging Malignant Neoplasm Of Nasopharynx (HCC) Staging form: Pharynx - Nasopharynx, AJCC 8th Edition - Clinical: Stage II (cT1, cN1, cM0) Current Therapy: Toripalimab-tpzi / Gemcitabine / CISplatin Current Disease Status: Progressing ECOG Performance Status: 1 Intent of Therapy: Palliative Intent to Change Therapy: Yes-changing regimen due to progression Mr. Jj knows to contact the care team with any further questions or concerns. Emergencies should be called into the care team or presentation to the Emergency Room. Portal messages are subject to a48 hour turn around time. PATIENT EDUCATION Ready to learn, no apparent learning barriers were identified; learning preferences include listening. Explained diagnosis and treatment plan; patient expressed understanding of the content. documented in this encounter Plan of Treatment Upcoming Encounters Date Type Department Care Team (Latest Contact Info) Description 01/28/2025 12:20 PM CDT Lab Department of Laboratory Medicine and Pathology, [facility], in [place], [place] [address] [place] [phone] German Pierce P.A.-C. [address] [place] [phone] 01/28/2025 2:30 PM CDT Infusion Department of Oncology in [place], [place] [address] [place] [phone] German Pierce P.A.-C. [address] [place] [phone] 01/30/2025 4:28 PM CDT Hospital Encounter Post Anesthesia Care Unit in [place], [place] [address] [place] [phone] Quirino Jackson M.D. [address] [place] [phone] 01/30/2025 4:28 PM CDT - 01/30/2025 7:18 PM CDT Surgery [facility]IN OR [address] [place] [phone] Quirino Jackson M.D. [address] [place] [phone] INSERTION EYAK CHAIN WEIGHT EYELID 02/09/2025 1:45 PM CDT Office Visit Department of Otorhinolaryngology in [place], [place] [address] [place] [phone] Quirino Bobo M.D. [address] [place] [phone] 02/09/2025 3:00 PM CDT Office Visit Center for [facility] in [place], [place] [address] [place] [phone] Quirino Jackson M.D. [address] [place] [phone] 02/10/2025 11:00 AM CDT Lab Department of Laboratory Medicine and Pathology, [facility] in [place], [place] [address] [place] [phone] German Pierce P.A.-C. [address] [place] [phone] 02/10/2025 1:00 PM CDT Office Visit Department of Oncology in [place], [place] [address] [place] [phone] Rik Aguirre M.D., M.S. [address] [place] [phone] 02/13/2025 9:45 AM CDT Infusion Department of Oncology in [place], [place] [address] [place] [phone] German Pierce P.A.-C. [address] [place] [phone] 02/19/2025 10:00 AM CDT Lab Department of Laboratory Medicine and Pathology, [facility], in [place], [place] [address] [place] [phone] German Pierce P.A.-C. [address] [place] [phone] 02/19/2025 12:00 PM CDT Infusion Department of Oncology in [place], [place] [address] [place] [phone] German Pierce P.A.-C. [address] [place] [phone] 03/03/2025 11:00 AM CDT Lab Department of Laboratory Medicine and Pathology, [facility] in [place], [place] [address] [place] [phone] German Pierce P.A.-C. [address] [place] [phone] 03/03/2025 1:00 PM CDT Office Visit Department of Oncology in [place], [place] [address] [place] [phone] Rik Aguirre M.D., M.S. [address] [place] [phone] 03/04/2025 7:30 AM CDT Infusion Department of Oncology in [place], [place] [address] [place] [phone] German Pierce P.A.-C. [address] [place] [phone] 03/11/2025 10:00 AM CDT Lab Department of Laboratory Medicine and Pathology, [facility], in [place], [place] [address] [place] [phone] German Pierce P.A.-C. [address] [place] [phone] 03/11/2025 12:00 PM CDT Infusion Department of Oncology in [place], [place] [address] [place] [phone] German Pierce P.A.-C. [address] [place] [phone] 03/24/2025 7:10 AM CDT Lab Department of Laboratory Medicine and Pathology, [facility] in [place], [place] [address] [place] [phone] German Pierce P.A.-C. [address] [place] [phone] 03/24/2025 9:20 AM CDT Office Visit Department of Oncology in [place], [place] [address] [place] [phone] Rik Aguirre M.D., M.S. [address] [place] [phone] 03/24/2025 10:15 AM CDT Infusion Department of Oncology in [place], [place] [address] [place] [phone] German Pierce P.A.-C. [address] [place] [phone] 04/01/2025 11:00 AM CDT Lab Department of Laboratory Medicine and Pathology, [facility] in [place], [place] [address] [place] [phone] German Pierce P.A.-C. [address] [place] [phone] 04/01/2025 1:00 PM CDT Infusion Department of Oncology in [place], [place] [address] [place] [phone] German Pierce P.A.-C. 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) Malignant Neoplasm Of Nasopharynx (HCC) Secondary Malignant Neoplasm Lymph Node (HCC) Other Educational Fundraising Director Current Drug Therapy Expected: 02/11/2025, Expires: 02/12/2028 Comprehensive Metabolic Panel Lab Routine 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) Malignant Neoplasm Of Nasopharynx (HCC) Secondary Malignant Neoplasm Lymph Node (HCC) Other Educational Fundraising Director Current Drug Therapy Expected: 02/11/2025, Expires: 02/11/2026 Magnesium Lab Routine 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) Malignant Neoplasm Of Nasopharynx (HCC) Secondary Malignant Neoplasm Lymph Node (HCC) Other Prison Current Drug Therapy Expected: 02/11/2025, Expires: 02/11/2026 Thyroid Function Preble Lab Routine 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) Malignant Neoplasm Of Nasopharynx (HCC) Secondary Malignant Neoplasm Lymph Node (HCC) Other Prison Current Drug Therapy Expected: 02/11/2025, Expires: 02/11/2026 CBC, Chemotherapy, No Alerts Lab Routine 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) Malignant Neoplasm Of Nasopharynx (HCC) Secondary Malignant Neoplasm Lymph Node (HCC) Other Prison Current Drug Therapy Expected: 02/18/2025, Expires: 02/18/2026 CBC, Chemotherapy, No Alerts Lab Routine 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) Malignant Neoplasm Of Nasopharynx (HCC) Secondary Malignant Neoplasm Lymph Node (HCC) Other Educational Fundraising Director Current Drug Therapy Expected: 03/11/2025, Expires: 03/11/2026 CBC with Differential, Blood Lab Routine 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) Malignant Neoplasm Of Nasopharynx (HCC) Secondary Malignant Neoplasm Lymph Node (HCC) Other Educational Fundraising Director Current Drug Therapy Expected: 03/04/2025, Expires: 03/04/2028 Comprehensive Metabolic Panel Lab Routine 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) Malignant Neoplasm Of Nasopharynx (HCC) Secondary Malignant Neoplasm Lymph Node (HCC) Other Educational Fundraising Director Current Drug Therapy Expected: 03/04/2025, Expires: 03/04/2026 Magnesium Lab Routine 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) Malignant Neoplasm Of Nasopharynx (HCC) Secondary Malignant Neoplasm Lymph Node (HCC) Other Educational Fundraising Director Current Drug Therapy Expected: 03/04/2025, Expires: 03/04/2026 Thyroid Function Preble Lab Routine 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) Malignant Neoplasm Of Nasopharynx (HCC) Secondary Malignant Neoplasm Lymph Node (HCC) Other Educational Fundraising Director Current Drug Therapy Expected: 03/04/2025, Expires: 03/04/2026 CBC, Chemotherapy, No Alerts Lab Routine 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) Malignant Neoplasm Of Nasopharynx (HCC) Secondary Malignant Neoplasm Lymph Node (HCC) Other Educational Fundraising Director Current Drug Therapy Expected: 04/01/2025, Expires: 04/01/2026 CBC with Differential, Blood Lab Routine 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) Malignant Neoplasm Of Nasopharynx (HCC) Secondary Malignant Neoplasm Lymph Node (HCC) Other Educational Fundraising Director Current Drug Therapy Expected: 03/25/2025, Expires: 03/25/2028 Comprehensive Metabolic Panel Lab Routine 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) Malignant Neoplasm Of Nasopharynx (HCC) Secondary Malignant Neoplasm Lymph Node (HCC) Other Educational Fundraising Director Current Drug Therapy Expected: 03/25/2025, Expires: 03/25/2026 Magnesium Lab Routine 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) Malignant Neoplasm Of Nasopharynx (HCC) Secondary Malignant Neoplasm Lymph Node (HCC) Other Educational Fundraising Director Current Drug Therapy Expected: 03/25/2025, Expires: 03/25/2026 Thyroid Function Preble Lab Routine 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) Malignant Neoplasm Of Nasopharynx (HCC) Secondary Malignant Neoplasm Lymph Node (HCC) Other Prison Current Drug Therapy Expected: 03/25/2025, Expires: 03/25/2026 Scheduled Procedures Name Priority Associated Diagnoses Date/Ti me INSERTION GOLD WEIGHT EYELID Paralysis Facial 01/30/2025 4:28 PM CDT REPAIR ECTROPION Paralysis Facial 01/30/2025 4:28 PM CDT GRAFT FASCIA ANUEL Paralysis Facial 01/30/2025 4:28 PM CDT Scheduled Referrals Name Type Priority Associated Diagnoses Orde r Schedule Oncology - Chemo education visit (clinic) Outpatient Referral Routine Malignant Neoplasm Of Nasopharynx (HCC) 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) Other Educational Fundraising Director Current Drug Therapy Expected: 01/08/2025, Expires: 04/10/2026 Oncology office visit (clinic) Outpatient Referral Routine 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) Malignant Neoplasm Of Nasopharynx (HCC) Secondary Malignant Neoplasm Lymph Node (HCC) Other Prison Current Drug Therapy Expected: 02/11/2025, Expires: 05/14/2026 Oncology office visit (clinic) Outpatient Referral Routine 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 Author Autogenerat ed Goal Care Plan Autogenerated Problem No Quirino Jackson M.D. documented as of this encounter Results * Thyroid Function Preble (01/20/2025 10:08 AM CDT) TSH, Sensitive 3.1 0.3 - 4.2 mIU/L 01/20/2025 12:10 PM CDT DTL Blood (Blood, Venous) 01/20/2025 10:08 AM CDT 01/20/2025 11:09 AM CDT us German Pierce P.A.-C. LAB BLOOD ADD-ON Final Result [address] [address] DTL [facility] [address] [place] [address] * Magnesium (01/20/2025 10:08 AM CDT) Pathologist [facility] Magnesium, S 2.3 1.7 - 2.3 mg/dL 01/20/2025 12:10 PM CDT DTL Blood (Blood, Venous) 01/20/2025 10:08 AM CDT 01/20/2025 11:09 AM CDT us German Pierce P.A.-C. LAB BLOOD ADD-ON Final Result [facility] [address] [place] [address], [facility] [address] [place] [address] * (ABNORMAL) Comprehensive Metabolic Panel (01/20/2025 10:08 AM CDT) Pathologist [facility] Potassium, S 4.0 3.6 - 5.2 mmol/L 01/20/2025 12:10 PM CDT DTL Sodium, S 141 135 - 145 mmol/L 01/20/2025 12:10 PM CDT DTL Chloride, S 101 98 - 107 mmol/L 01/20/2025 12:10 PM CDT DTL Bicarbonate, S 29 22 - 29 mmol/L 01/20/2025 12:10 PM CDT DTL Anion Gap 11 7 - 15 01/20/2025 12:10 PM CDT DTL BUN (Blood Urea Nitrogen), S 16 8 - 24 mg/dL 01/20/2025 12:10 PM CDT DTL Creatinine 1.18 0.74 - 1.35 mg/dL 01/20/2025 12:10 PM CDT DTL Estimated GFR (eGFR) 72 >=60 mL/min/BS A 01/20/2025 12:10 PM CDT DTL Comment: Estimated GFR calculated using the 2020 CKD_EPI creatinine equation. Calcium, Total, S 9.8 8.6 - 10.0 mg/dL 01/20/2025 12:10 PM CDT DTL Glucose, S 73 70 - 140 mg/dL 01/20/2025 12:10 PM CDT DTL Protein, Total, S 7.0 6.3 - 7.9 g/dL 01/20/2025 12:10 PM CDT DTL Albumin, S 4.2 3.5 - 5.0 g/dL 01/20/2025 12:10 PM CDT DTL Aspartate Aminotransferase (AST), S 30 8 - 48 U/L 01/20/2025 12:10 PM CDT DTL Alkaline Phosphatase, S 347(H) 40 - 129 U/L 01/20/2025 12:10 PM CDT DTL Alanine Aminotransferase (ALT), S 87(H) 7 - 55 U/L 01/20/2025 12:10 PM CDT DTL Bilirubin, Total, S 0.3 0.0 - 1.2 mg/dL 01/20/2025 12:10 PM CDT DTL Blood (Blood, Venous) 01/20/2025 10:08 AM CDT 01/20/2025 11:09 AM CDT us German ElizabethAAlfredo LAB BLOOD ADD-ON Final Result [address] [address], [facility] [place] [address] * (ABNORMAL) CBC with Differential, Blood (01/20/2025 10:08 AM CDT) Hemoglobin 13.2 13.2 - 16.6 g/dL 01/20/2025 11:12 AM CDT DTL Hematocrit 41.2 38.3 - 48.6 % 01/20/2025 11:12 AM CDT DTL Erythrocytes 4.66 4.35 - 5.65 x10(12)/L 01/20/2025 11:12 AM CDT DTL MCV 88.4 78.2 - 97.9 fL 01/20/2025 11:12 AM CDT DTL RBC Distrib Width 12.3 11.8 - 14.5 % 01/20/2025 11:12 AM CDT DTL Platelet Count 487(H) 135 - 317 x10(9)/L 01/20/2025 11:12 AM CDT DTL Leukocytes 7.6 3.4 - 9.6 x10(9)/L 01/20/2025 11:12 AM CDT DTL Neutrophils 5.81 1.56 - 6.45 x10(9)/L 01/20/2025 11:12 AM CDT [facility] Lymphocytes 0.66(L) 0.95 - 3.07 x10(9)/L 01/20/2025 11:12 AM CDT DTL Monocytes 0.71 0.26 - 0.81 x10(9)/L 01/20/2025 11:12 AM CDT DTL Eosinophils 0.37 0.03 - 0.48 x10(9)/L 01/20/2025 11:12 AM CDT DTL Basophils 0.06 0.01 - 0.08 x10(9)/L 01/20/2025 11:12 AM CDT DTL Blood (Blood, Venous) 01/20/2025 10:08 AM CDT 01/20/2025 10:34 AM CDT German Pierce P.A.-C. 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
--- OUTSIDE RECORDS SUMMARY | 2025-01-08 10:40 | XMS_ITS | Encounter Summary ---
Author Organization [facility] Address [address] [place] [address] Care Team Providers Care Medical Records Manager Name Role Phone Elsewhere, Pcp Primary Care Provider Unavailabl e Reason for Referral * Physical Therapy (Routine) - Authorized Specialty Diagnoses / Procedures Referred By Luz wu Referred To Contact Diagnoses Malignant Neoplasm Of Nasopharynx (HCC) Procedures PT Evaluate and treat German Pierce P.A.-C. 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 [address] [place] [phone] Phone: tel: fax: German Pierce P.A.-C. [address] [place] [phone] Phone: tel: fax: Referral ID Status Reason Start Date Expiration Date V isits Requested Visits Authorized [id number] Authorized 01/08/2025 01/08/2027 99 99 Encounter Details Date Type Department Care Team (Late st Contact Info) Description 01/08/2025 10:40 AM CDT Education Department of Oncology in [place], [place] [address] [place] [address] [phone] German Pierce P.A.-C. [address] [place] [address] [phone] Ladi Valdovinos R.N. 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 Patient declined 08/29/2022 Do you belong to any clubs o r organizations such as yazdanism groups, unions, fraternal or athletic groups, or [...] Answer Date Recorded PHQ-2 Score 0 02/13/2019 [facility] of Occupat ional Health - Occupational Stress [...] your living situation today? I have a [facility] place to live 10/28/2024 Education Answer Date Recorded What is the highest level of school you have completed or the highest degree you have received? Associate degree: occupational, technical, or vocational program 08/29/2022 Sex and Gender Information Value Date Recorded Sex Assigned at Male 11/04/2018 9:57 AM INTAKE ASSESSOR Legal Sex Male 4:48 PM INTAKE ASSESSOR Gender Identity Male 11/04/2018 9:57 AM INTAKE ASSESSOR Sexual Orientation Straight 11/04/2018 9: 57 AM INTAKE ASSESSOR documented as of this encounter Patient Instructions * Attachments The following attachments cannot be sent through Care Everywhere. * Cisplatin (By injection) (Samoan) * Gemcitabine (By injection) (Samoan) * Toripalimab-tpzi (By injection) (Samoan) * Information for Patients Receiving Chemotherapy * Keeping Your Home Safe After a Chemotherapy Treatment * Temporary Change in Blood Counts: A Potential Side Effect of Chemotherapy documented in this encounter Progress Notes * Ladi Valdovinos R.N. - 01/08/2025 10:40 AM CDT Cancer Treatment Education Visit REASON FOR VISIT Met with Stew Jj for cancer treatment education. Also present was Stew's son and a [facility] transmission tester. ASSESSMENT/PLAN Patient education provided per the cancer treatment letter attached in encounters. Printed materials provided to patient per Education Tab. Answered questions. Patient verbalized understanding and voiced appreciation for education. Education provided on the following medications: Toripalimab, cisplatin, gemcitabine. documented in this encounter Plan of Treatment Upcoming Encounters Date Type Department Care Team (Latest Contact Info) Description 01/28/2025 12:20 PM CDT Lab Department of Laboratory Medicine and Pathology, [facility], in [place], [place] [address] [place] [address] [phone] German Pierce P.A.-Wade [address] [place] [address] [phone] 01/28/2025 2:30 PM CDT Infusion Department of Oncology in [place], [place] [address] [place] [address] [phone] German Pierce PCourtneyACourtney-CCourtney [address] [place] [address] [phone] 01/30/2025 4:28 PM CDT Hospital Encounter Post Anesthesia Care Unit in [place], [place] [address] [place] [address] [phone] Quirino Jackson M.D. [address] [place] [address] [phone] 01/30/2025 4:28 PM CDT - 01/30/2025 7:18 PM CDT Surgery [facility]ST ROMB MAIN OR [address] [place] [phone] Quirino Jackson M.D. [address] [place] [phone] INSERTION [place]ER[place] CHAIN WEIGHT EYELID 02/09/2025 1:45 PM CDT Office Visit Department of Otorhinolaryngology in [place], [place] [address] [place] [phone] Quirino Bobo M.D. [address] [place] [phone] 02/09/2025 3:00 PM CDT Office Visit [facility] in [place], [place] [address] [place] [phone] Quirino Jackson M.D. [address] [place] [phone] 02/10/2025 11:00 AM CDT Lab Department of Laboratory Medicine and Pathology, [place], [place] [address] [place] [phone] German iPerce, P.A.-CCourtney [address] [place] [phone] 02/10/2025 1:00 PM CDT Office Visit Department of Oncology in [address] [phone] Rik Aguirre M.D., M.S. [address] [place] [phone] 02/13/2025 9:45 AM CDT Infusion Department of Oncology in [place], [place] [address] [place] [phone] German Pierce, PCourtneyACourtney-C. [address] [place] [phone] 02/19/2025 10:00 AM CDT Lab Department of Laboratory Medicine and Pathology, [facility] in [place], [place] [address] [place] [phone] German Pierce P.A.-C. [address] [place] [phone] 02/19/2025 12:00 PM CDT Infusion Department of Oncology in [place], [place] [address] [place] [phone] German Pierce P.A.-C. [address] [place] [phone] 03/03/2025 11:00 AM CDT Lab Department of Laboratory Medicine and Pathology, [facility] in [place], [place] [address] [place] [phone] German Pierce P.A.-C. [address] [place] [phone] 03/03/2025 1:00 PM CDT Office Visit Department of Oncology in [place], [place] [address] [place] [phone] Rik Aguirre M.D., M.S. [address] [place] [phone] 03/04/2025 7:30 AM CDT Infusion Department of Oncology in [place], [place] [address] [place] [phone] German Pierce P.A.-C. [address] [place] [phone] 03/11/2025 10:00 AM CDT Lab Department of Laboratory Medicine and Pathology, [facility], in [place], [place] [address] [place] [phone] German Pierce P.A.-C. [address] [place] [phone] 03/11/2025 12:00 PM CDT Infusion Department of Oncology in [place], [place] [address] [place] [phone] German Pierce P.A.-C. [address] [place] [phone] 03/24/2025 7:10 AM CDT Lab Department of Laboratory Medicine and Pathology, [facility] in [place], [place] [address] [place] [phone] German Pierce P.A.-C. [address] [place] [phone] 03/24/2025 9:20 AM CDT Office Visit Department of Oncology in [address] [phone] Rik Aguirre M.D., M.S. [address] [place] [phone] 03/24/2025 10:15 AM CDT Infusion Department of Oncology in [place], [place] [address] [place] [phone] German Pierce P.A.-C. [address] [place] [phone] 04/01/2025 11:00 AM CDT Lab Department of Laboratory Medicine and Pathology, [facility] in [place], [place] [address] [place] [phone] German Pierce P.A.-C. [address] [place] [phone] 04/01/2025 1:00 PM CDT Infusion Department of Oncology in [place], [place] [address] [place] [phone] German Pierce P.A.-C. 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
--- OUTSIDE RECORDS SUMMARY | 2025-01-15 | XMS_ITS | Encounter Summary ---
Author Organization [facility] Address [address] [place] [address] Care Team Providers Care Svp Business Development Name Role Phone Elsewhere, Pcp Primary Care Provider Unavailabl e Encounter Details Date Type Department Care Team (Late st Contact Info) Description 01/15/2025 Ancillary Procedure Department of Ophthalmology Social History Tobacco Use Types Packs/Day Years Used Date Smoking Tobacco: Never Passive Smoke Exposure: Never Smokeless Tobacco: Never Alcohol Use Standard Drinks/Week Comments Not Currently 1 (1 standard drink = 0.6 oz pure alcohol) patient states no alcohol in 6+months [facility] Utilities Answer Date Recorded In the past 12 months has [facility] [employer] gas, oil, or water [employer] threatened to shut off services in your [...] How often do you attend chur or presybeterian services? Patient declined 08/29/2022 Do you belong to any clubs o r organizations such as uatsdin groups, unions, [email or web address] or athletic groups, or school groups? No [...] Answer Date Recorded PHQ-2 Score 0 02/13/2019 [facility] of Occupat ional Health - Occupational [...] your living situation today? I have a [facility] place to live 10/28/2024 Education Answer Date Recorded What is the highest level of school you have completed or the highest degree you have received? Associate degree: occupational, technical, or vocational program 08/29/2022 Sex and Gender Information Value Date Recorded Sex Assigned at Male 11/04/2018 9:57 AM WELT EDGE ROUNDER Legal Sex Male 4:48 PM WELT EDGE ROUNDER Gender Identity Male 11/04/2018 9:57 AM WELT EDGE ROUNDER Sexual Orientation Straight 11/04/2018 9: 57 AM WELT EDGE ROUNDER documented as of this encounter Plan of Treatment Upcoming Encounters Date Type Department Care Team (Latest Contact Info) Description 01/28/2025 12:20 PM CDT Lab Department of Laboratory Medicine and Pathology, [facility], in [place], [place] 200 [place] [phone] German Pierce P.A.-C. 200 [place] [phone] 01/28/2025 2:30 PM CDT Infusion Department of Oncology in [place], [place] [address] [place] [phone] German Pierce P.A.-C. [address] [place] [phone] 01/30/2025 4:28 PM CDT Hospital Encounter Post Anesthesia Care Unit in [place], [place] [address] [place] [address] [phone] Quirino Jackson M.D. [address] [place] [phone] 01/30/2025 4:28 PM CDT - 01/30/2025 7:18 PM CDT Surgery RST ROMB MAIN OR [address] [place] [address] [phone] Quirino Jackson M.D. [address] [place] [phone] INSERTION MOHEGAN CHAIN WEIGHT EYELID 02/09/2025 1:45 PM CDT Office Visit Department of Otorhinolaryngology in [place], [place] [address] [place] [phone] Quirino Bobo M.D. [address] [place] [phone] 02/09/2025 3:00 PM CDT Office Visit [facility] in [place], [place] [address] [place] [phone] Quirino Jackson M.D. [address] [place] [phone] 02/10/2025 11:00 AM CDT Lab Department of Laboratory Medicine and Pathology, [facility], in [place], [place] [address] [place] [phone] German Pierce P.A.-C. [address] [place] [phone] 02/10/2025 1:00 PM CDT Office Visit Department of Oncology in [place], [place] [address] [place] [phone] Rik Aguirre M.D., M.S. [address] [place] [phone] 02/13/2025 9:45 AM CDT Infusion Department of Oncology in [place], [place] [address] [place] [phone] German Pierce P.A.-C. [address] [place] [phone] 02/19/2025 10:00 AM CDT Lab Department of Laboratory Medicine and Pathology, [facility] in [place], [place] [address] [place] [phone] German Pierce P.A.-C. [address] [place] [phone] 02/19/2025 12:00 PM CDT Infusion Department of Oncology in [place], [place] [address] [place] [phone] German Pierce P.A.-C. [address] [place] [phone] 03/03/2025 11:00 AM CDT Lab Department of Laboratory Medicine and Pathology, [place], [place] [address] [place] [phone] German Pierce P.A.-C. [address] [place] [phone] 03/03/2025 1:00 PM CDT Office Visit Department of Oncology in [place], [place] [address] [place] [phone] Rik Aguirre M.D., M.S. [address] [place] [phone] 03/04/2025 7:30 AM CDT Infusion Department of Oncology in [place], [place] [address] [place] [phone] German Pierce P.A.-CCourtney [address] [place] [phone] 03/11/2025 10:00 AM CDT Lab Department of Laboratory Medicine and Pathology, [facility] in [place], [place] [address] [place] [phone] German Pierce P.A.-CCourtney [address] [place] [phone] 03/11/2025 12:00 PM CDT Infusion Department of Oncology in [place], [place] [address] [place] [phone] German Pierce P.A.-CCourtney [address] [place] [phone] 03/24/2025 7:10 AM CDT Lab Department of Laboratory Medicine and Pathology, [facility], in [place], [place] [address] [place] [phone] German Pierce P.A.-CCourtney [address] [place] [phone] 03/24/2025 9:20 AM CDT Office Visit Department of Oncology in [place], [place] [address] [place] [phone] Rik Aguirre M.D., M.S. [address] [place] [phone] 03/24/2025 10:15 AM CDT Infusion Department of Oncology in [place], [place] [address] [place] [phone] German Pierce P.A.-Wade [address] [place] [phone] 04/01/2025 11:00 AM CDT Lab Department of Laboratory Medicine and Pathology, [facility] in [place], [place] [address] [place] [phone] German Pierce P.A.-C. [address] [place] [phone] 04/01/2025 1:00 PM CDT Infusion Department of Oncology in [place], [place] [address] [place] [phone] German Pierce P.A.-CCourtney [address] [place] [phone] Scheduled Procedures Name Priority Associated Diagnoses Date/Ti [...] Associated Diagnosis Comments OPHTHALMOLOGY IMAGE EXAM Routine 01/15/2025 12:00 AM CDT documented in this encounter Results * Eye External-Ophthalmology Image Exam (01/15/2025 12:00 AM CDT) Narrative [facility] - 01/15/2025 4:09 PM CDT This order has been created [...] documented as of this encounter Care Teams Svp Business Development Relationship Specialty Start Date End Date Elsewhere, Pcp PCP - General Internal Medicine 10/13/22 documented as of this encounter
--- OUTSIDE RECORDS SUMMARY | 2025-01-15 15:00 | XMS_ITS | Encounter Summary ---
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 200 [place] [address] Phone: tel: fax: [facility] Referral ID Status Reason Start Date Expiration Date Visits Re quested Visits Authorized [id number] Closed 01/15/2025 07/17/2026 1 1 Reason for Visit * Reason Comments Unspecified Lagophthalmos Right Upper Ey elid * Outpatient (Routine) - Closed Specialty Diagnoses / Procedures Referred By Luz wu Referred To Contact Ophthalmology Diagnoses Unspecified Lagophthalmos Right Upper Eyelid Elieser Almonte M.D., Ph.D. [address] [place] [phone] Phone: tel: fax: [facility] Referral ID Status Reason Start Date Expiration Date Visits Re quested Visits Authorized [id number] Closed 07/14/2024 01/13/2026 1 1 Encounter Details Date Type Department Care Team (Latest Contact Info) Description 01/15/2025 3:00 PM CDT Comprehensive Visit Department of Ophthalmology in [place], [place] 200 [place] [phone] Marbin Downs M.D. 200 [place] [phone] Demian Werner M.D. 200 [place] [phone] Paralysis Facial (Primary Dx); Lagophthalmos Paralytic Right; Ptosis Brow; Palsy Abducens Nerve Right Social History Tobacco Use Types Packs/Day Years Used Date Smoking Tobacco: Never Passive Smoke Exposure: Never Smokeless Tobacco: Never Alcohol Use Standard Drinks/Week Comments Not Currently 1 (1 standard drink = 0.6 oz pure alcohol) patient states no alcohol in 6+months [facility] Utilities Answer Date Recorded In the past 12 months has [facility] [employer], gas, oil, or water [facility] threatened to shut off services in your [...] often do you attend chur ch or roman catholic services? Patient declined 08/29/2022 Do you belong to any clubs o r organizations such as moravian groups, unions, fraternal or athletic groups, or [...] Answer Date Recorded PHQ-2 Score 0 02/13/2019 [facility] - Occupational Stress Questionnaire Answer Date [...] your living situation today? I have a [facility] place to live 10/28/2024 Education Answer Date Recorded What is the highest level of school you have completed or the highest degree you have received? Associate degree: occupational, technical, or vocational program 08/29/2022 Sex and Gender Information Value Date Recorded Sex Assigned at Male 11/04/2018 9:57 AM BATCH UNIT TREATER Legal Sex Male 4:48 PM BATCH UNIT TREATER Gender Identity Male 11/04/2018 9:57 AM BATCH UNIT TREATER Sexual Orientation Straight 11/04/2018 9: 57 AM BATCH UNIT TREATER documented as of this encounter Progress Notes * Demian Werner M.D. - 01/15/2025 3:00 PM CDT [facility] - Oculoplastic & Orbital Surgery Office Visit Note Encounter Date: 01/15/2025 Referring Provider: Elieser Almonte M.D., Ph.D. [address] [place] [address] SUBJECTIVE Chief Complaint Unspecified Lagophthalmos Right Upper Eyelid HPI This patient was referred by Elieser Almonte M.D., Ph.D. Stew Jj is a 59 y.o. 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 In 10/04/2022 he was found to have [...] able to close the right eye since 05/2024 Affecting activities of daily living: driving (due to limited peripheral vision), reading (due to superior visual field loss), watching television, and computer vision Location: right eye Timing: constant Course: worsening Worse at a particular time of day: no Alleviating factors: none Double vision: yes, binocular horizontal diplopia since 03/2024 which has been progressively worsening. He has also not able to close the right eye since 05/2024. Swallowing difficulty: no Unexplained weakness elsewhere in the body: no Family history of droopy eyelids: no Contact lens wearer: no History of dry eyes: yes, erythromycin (ROMYCIN) 5 mg/gram (0.5 %) ophthalmic ointment and Systane Smoking status: Never smoked Prior eyelid surgeries/procedures: no Blood thinner: no Last edited by Jessica Orozco, C.O.A. on 01/15/2025 3:15 PM. GJG: No further concerns. ROS Positive for: Eyes Last edited by Jessica Orozco, C.O.A. on 01/15/2025 3:14 PM. OBJECTIVE Physical Examination: Base Eye Exam Visual Acuity (Snellen - Linear) Right Left Dist sc 20/30 -2 20/20 Dist ph sc NI Tonometry (Icare, 3:17 PM) Right Left Pressure 19 15 Pupils Pupils Light Shape Right PERRL, No APD 2 mm Round Left PERRL, No APD 3 mm Round Visual [place] Automated Visual Field Complete 12/17/24 Extraocular Movement see 12/17/2024 exam Slit Lamp and Fundus Exam External Exam Right Left External Paralytic brow ptosis / CN function / WNL Slit Lamp Exam Right Left Lids/Lashes MRD 1.5 mm, 7 mm lagophthalmos, poor Cleaning's, esotropia, lower eyelid paralytic ectropion MRD 3.0 mm, normal levator function, no lag Conjunctiva/Sclera trace injection WNL Cornea scattered PEEs WNL Anterior Chamber WNL WNL Iris WNL WNL Lens 1+ NS 1+ NS Anterior Vitreous WNL WNL Assessment 1. 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 He has been unable to close the right eye since 05/2024 and developed horizontal diplopia a few months prior. He has been using an eye patch to help with ocular surface protection and elimination of diplopia. He has been evaluated by Dr. Jackson in otolaryngology who has recommended upper eyelid weight placement along with lower eyelid ectropion correction. Iagree with this plan and encouraged the patient to proceed. There is no further need for oculoplasti cs given his treatment plan with Dr. Jackson. That said, we do need to arrange for consultation with Dr. Toure to evaluate his esotropia. Dr. Toure kindly offered to see the patient today as the [place] from [place]. Demian Werner M.D. Air Breaker Operator Shoe Worker of Ophthalmology Pager: [phone] Shrink Pit Supervisor: [phone] [facility] [address] [place] [phone] documented in this encounter Plan of Treatment Upcoming Encounters Date Type Department Care Team (Latest Contact Info) Description 01/28/2025 12:20 PM CDT Lab Department of Laboratory Medicine and Pathology, [facility], in [place], [place] [address] [place] [phone] German Pierce P.A.-C. [address] [place] [phone] 01/28/2025 2:30 PM CDT Infusion Department of Oncology in [place], [place] [address] [place] [phone] German Pierce P.A.-C. [address] [place] [phone] 01/30/2025 4:28 PM CDT Hospital Encounter Post Anesthesia Care Unit in [place], [place] [address] [place] [phone] Quirino Jackson M.D. [address] [place] [phone] 01/30/2025 4:28 PM CDT - 01/30/2025 7:18 PM CDT Surgery RST ROMB MAIN OR [address] [place] [phone] Quirino Jackson M.D. [address] [place] [phone] INSERTION [place] CHAIN WEIGHT EYELID 02/09/2025 1:45 PM CDT Office Visit Department of Otorhinolaryngology in [place], [place] [address] [place] [phone] Quirino Bobo M.D. [address] [place] [phone] 02/09/2025 3:00 PM CDT Office Visit [facility] in [place], [place] [address] [place] [phone] Quirino Jackson M.D. [address] [place] [phone] 02/10/2025 11:00 AM CDT Lab Department of Laboratory Medicine and Pathology, [facility], in [place], [place] [address] [place] [phone] German Pierce P.A.-Wade [address] [place] [phone] 02/10/2025 1:00 PM CDT Office Visit Department of Oncology in [place], [place] [address] [place] [phone] Rik Aguirre M.D., M.S. [address] [place] [phone] 02/13/2025 9:45 AM CDT Infusion Department of Oncology in [place], [place] [address] [place] [phone] German Pierce P.A.-Wade [address] [place] [phone] 02/19/2025 10:00 AM CDT Lab Department of Laboratory Medicine and Pathology, [facility] in [place], [place] [address] [place] [phone] German Pierce P.A.-Wade [address] [place] [phone] 02/19/2025 12:00 PM CDT Infusion Department of Oncology in [place], [place] [address] [place] [phone] German Pierce P.A.-CCourtney [address] [place] [phone] 03/03/2025 11:00 AM CDT Lab Department of Laboratory Medicine and Pathology, [facility] in [place], [place] [address] [place] [phone] German Pierce P.A.-C. [address] [place] [phone] 03/03/2025 1:00 PM CDT Office Visit Department of Oncology in [place], [place] [address] [place] [phone] Rik Aguirre M.D., M.S. [address] [place] [phone] 03/04/2025 7:30 AM CDT Infusion Department of Oncology in [place], [place] [address] [place] [phone] German Pierce P.A.-C. [address] [place] [phone] 03/11/2025 10:00 AM CDT Lab Department of Laboratory Medicine and Pathology, [facility] in [place], [place] [address] [place] [phone] German Pierce P.A.-C. [address] [place] [phone] 03/11/2025 12:00 PM CDT Infusion Department of Oncology in [place], [place] [address] [place] [phone] German Pierce P.A.-C. [address] [place] [phone] 03/24/2025 7:10 AM CDT Lab Department of Laboratory Medicine and Pathology, [facility], in [place], [place] [address] [place] [phone] German Pierce P.A.-Wade [address] [place] [phone] 03/24/2025 9:20 AM CDT Office Visit Department of Oncology in [place], [place] [address] [place] [phone] Rik Aguirre M.D., M.S. [address] [place] [phone] 03/24/2025 10:15 AM CDT Infusion Department of Oncology in [place], [place] [address] [place] [phone] German Pierce P.A.-Wade [address] [place] [phone] 04/01/2025 11:00 AM CDT Lab Department of Laboratory Medicine and Pathology, [facility] in [place], [place] [address] [place] [phone] German Pierce P.A.-Wade [address] [place] [phone] 04/01/2025 1:00 PM CDT Infusion Department of Oncology in [address] [phone] German Pierce P.A.-Wade [address] [place] [phone] Scheduled Procedures Name Priority Associated Diagnoses Date/Ti me INSERTION GOLD WEIGHT EYELID Paralysis Facial 01/30/2025 4:28 PM CDT REPAIR ECTROPION Paralysis Facial 01/30/2025 4:28 PM CDT GRAFT FASCIA ANUEL Paralysis Facial 01/30/2025 4:28 PM CDT Scheduled Referrals Name Type Priority Associated Diagnoses Order Schedule Ophthalmology - Adult strabismus consult (clinic) Outpatient Referral Routine 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 Author Autogenerat ed Goal Care Plan Autogenerated Problem No Quirino Jackson M.D. 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
--- OUTSIDE RECORDS SUMMARY | 2025-01-15 15:45 | XMS_ITS | Encounter Summary ---
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 200 [place] [address] Phone: tel: fax: [facility] Referral ID Status Reason Start Date Expiration Date Visits Re quested Visits Authorized [id number] Closed 01/15/2025 07/17/2026 1 1 Encounter Details Date Type Department Care Team (Latest Contact Info) Description 01/15/2025 3:45 PM CDT Comprehensive Visit Department of Ophthalmology in [place], [place] [address] [place] [phone] Carlin Toure M.D. 200 [place] [phone] Paralysis Facial; Lagophthalmos Paralytic Right; Ptosis Brow; Palsy Abducens Nerve Right Social History Tobacco Use Types Packs/Day Years Used Date Smoking Tobacco: Never Passive Smoke Exposure: Never Smokeless Tobacco: Never Alcohol Use Standard Drinks/Week Comments Not Currently 1 (1 standard drink = 0.6 oz pure alcohol) patient states no alcohol in 6+months [facility] Utilities Answer Date Recorded In the past 12 months has e [employer], gas, oil, or water [employer] threatened to shut off services in your [...] How often do you attend [facility] or anabaptism services? Patient declined 08/29/2022 Do you belong [...] Answer Date Recorded PHQ-2 Score 0 02/13/2019 [facility] of Occupat ional [facility] - Occupational Stress Questionnaire Answer Date [...] Sex Assigned at Male 11/04/2018 9:57 AM KOHINOOR OPERATOR Legal Sex Male 4:48 PM KOHINOOR OPERATOR Gender Identity Male 11/04/2018 9:57 AM KOHINOOR OPERATOR Sexual Orientation Straight 11/04/2018 9: 57 AM KOHINOOR OPERATOR documented as of this encounter Progress Notes * Carlin Toure M.D. 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 Almonte last month: He was found to have nasopharyngeal carcinoma in 2017, status post chemotherapy and radiation in 2019. In 10/04/2022 he was found to have progressive enlargement of a right inferolateral clivus mass with progressive marrow infiltration extending to the left of the midline and with skull base involvement, suspicious for tumor progression vs osteoradionecrosis. Serial MRI showed minimal progression, and biopsy 10/12/2022 showed no neoplasm. 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 Right nerve palsy He has had binocular horizontal diplopia since 03/2024 which has been progressively worsening. Examination today continues to show a large esotropia and -6 abduction deficit right eye. I did not recommend Botox to determine if the current alignment is stable. If so, definitive surgery could be done provided overall neurological health is also stable. Follow up after lid surgery documented in this encounter Plan of Treatment Upcoming Encounters Date Type Department Care Team (Latest Contact Info) Description 01/28/2025 12:20 PM CDT Lab Department of Laboratory Medicine and Pathology, [facility], in [place], [place] [address] [place] [phone] German Pierce P.A.-C. [address] [place] [phone] 01/28/2025 2:30 PM CDT Infusion Department of Oncology in [place], [place] [address] [place] [phone] German Pierce P.A.-C. [address] [place] [phone] 01/30/2025 4:28 PM CDT Hospital Encounter Post Anesthesia Care Unit in [place], [place] [address] [place] [phone] Quirino Jackson M.D. [address] [place] [phone] 01/30/2025 4:28 PM CDT - 01/30/2025 7:18 PM CDT Surgery [place] [address] [place] [phone] Quirino Jackson M.D. [address] [place] [phone] INSERTION CHICKEN RANCH CHAIN WEIGHT EYELID 02/09/2025 1:45 PM CDT Office Visit Department of Otorhinolaryngology in [place], [place] [address] [place] [phone] Quirino Bobo M.D. [address] [place] [phone] 02/09/2025 3:00 PM CDT Office Visit [facility] in [place], [place] [address] [place] [phone] Quirino Jackson M.D. [address] [place] [phone] 02/10/2025 11:00 AM CDT Lab Department of Laboratory Medicine and Pathology, [facility] in [place], [place] [address] [place] [phone] German Pierce P.A.-C. [address] [place] [phone] 02/10/2025 1:00 PM CDT Office Visit Department of Oncology in [place], [place] [address] [place] [phone] Rik Aguirre M.D., M.S. [address] [place] [phone] 02/13/2025 9:45 AM CDT Infusion Department of Oncology in [place], [place] [address] [place] [phone] German Pierce P.A.-C. [address] [place] [phone] 02/19/2025 10:00 AM CDT Lab Department of Laboratory Medicine and Pathology, [facility] in [place], [place] [address] [place] [phone] German Pierce P.A.-C. [address] [place] [phone] 02/19/2025 12:00 PM CDT Infusion Department of Oncology in [place], [place] [address] [place] [phone] German Pierce P.A.-C. [address] [place] [phone] 03/03/2025 11:00 AM CDT Lab Department of Laboratory Medicine and Pathology, [facility], in [place], [place] [address] [place] [phone] German Pierce P.A.-C. [address] [place] [phone] 03/03/2025 1:00 PM CDT Office Visit Department of Oncology in [place], [place] [address] [place] [phone] Rik Aguirre M.D., M.S. [address] [place] [phone] 03/04/2025 7:30 AM CDT Infusion Department of Oncology in [place], [place] [address] [place] [phone] German Pierce P.A.-C. [address] [place] [phone] 03/11/2025 10:00 AM CDT Lab Department of Laboratory Medicine and Pathology, [place], [place] [address] [place] [phone] German Pierce P.A.-C. [address] [place] [phone] 03/11/2025 12:00 PM CDT Infusion Department of Oncology in [place], [place] [address] [place] [phone] German Pierce P.A.-C. [address] [place] [phone] 03/24/2025 7:10 AM CDT Lab Department of Laboratory Medicine and Pathology, [facility] in [place], [place] [address] [place] [phone] German Pierce P.A.-C. [address] [place] [phone] 03/24/2025 9:20 AM CDT Office Visit Department of Oncology in [place], [place] [address] [place] [phone] Rik Aguirre M.D., M.S. [address] [place] [phone] 03/24/2025 10:15 AM CDT Infusion Department of Oncology in [place], [place] [address] [place] [phone] German Pierce P.A.-CCourtney [address] [place] [phone] 04/01/2025 11:00 AM CDT Lab Department of Laboratory Medicine and Pathology, [facility] in [place], [place] [address] [place] [phone] German Pierce P.A.-CCourtney [address] [place] [phone] 04/01/2025 1:00 PM CDT Infusion Department of Oncology in [place], [place] [address] [place] [phone] German Pierce P.ACourtney-CCourtney [address] [place] [phone] Scheduled Procedures Name Priority Associated Diagnoses Date/Ti [...] Associated Diagnosis Comments SENSORY MOTOR EXAM Routine 01/15/2025 3: 53 PM CDT Palsy Abducens Nerve Right documented in this encounter Results * Sensory Motor Exam (01/15/2025 3:53 PM CDT) Narrative OPHTHALMOLGY NON-IMAGING ORDERS - 01/15/2025 4:08 PM CDT I have reviewed the medical record and the sensorimotor exam documentation. The findings are consistent with my previously initiated care plan. I agree with the impression, plan, and follow up as entered by the title camera operator. us Carlin Toure M.D. 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
--- OUTSIDE RECORDS SUMMARY | 2025-01-21 07:30 | XMS_ITS | Encounter Summary ---
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 [address] [place] [address] Phone: tel: fax: Referral ID Status Reason Start Date Expiration Date V isits Requested Visits Authorized [id number] Authorized 01/08/2025 01/08/2027 99 99 Encounter Details Date Type Department Care Team ([facility] st Contact Info) Description 01/21/2025 7:30 AM CDT Infusion Department of Oncology in [place], [place] [address] [place] [address] German Pierce P.A.-C. 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 Patient declined 08/29/2022 Do you belong to any clubs o r organizations such as religion groups, unions, fraternal or athletic groups, or [...] Answer Date Recorded PHQ-2 Score 0 02/13/2019 [facility] - Occupational Stress Questionnaire Answer Date Recorded [...] your living situation today? I have a [facility] place to live 10/28/2024 Education Answer Date Recorded What is the highest level of school you have completed or the highest degree you have received? Associate degree: occupational, technical, or vocational program 08/29/2022 Sex and Gender Information Value Date Recorded Sex Assigned at Male 11/04/2018 9:57 AM [employer] Legal Sex Male 4:48 PM [employer] Gender Identity Male 11/04/2018 9:57 AM [employer]P [employer] Sexual Orientation Straight 11/04/2018 9: 57 AM [employer] documented as of this encounter Last Filed Vital Signs Vital Sign Reading Time Taken Comments Blood Pressure 108/64 01/21/2025 7:00 AM CDT Pulse 64 01/21/2025 7:00 AM CDT Temperature 36.4 C (97.5 F) 01/21/2025 7:00 AM CDT Respiratory Rate - - Oxygen Saturation - - Inhaled Oxygen Concentration - - Weight 64.8 kg (142 lb 12 oz) 01/21/2025 7:00 AM CDT Height - - Body Mass Index 23.27 01/08/2025 9:03 AM CDT documented in this encounter Plan of Treatment Upcoming Encounters Date Type Department Care Team (Latest Contact Info) Description 01/28/2025 12:20 PM CDT Lab Department of Laboratory Medicine and Pathology, [facility] in [place], [place] [address] [place] [phone] German Pierce, PCourtneyACourtney-CCourtney [address] [place] [phone] 01/28/2025 2:30 PM CDT Infusion Department of Oncology in [place], [place] [address] [place] [phone] German Pierce PCourtneyACourtney-CCourtney [address] [place] [phone] 01/30/2025 4:28 PM CDT Hospital Encounter Post Anesthesia Care Unit in [place], [place] [address] [place] [phone] Quirino Jackson M.D. [address] [place] [phone] 01/30/2025 4:28 PM CDT - 01/30/2025 7:18 PM CDT Surgery [facility]IN OR [address] [place] [phone] Quirino Jackson M.D. [address] [place] [phone] INSERTION ASA'CARSARMIUT CHAIN WEIGHT EYELID 02/09/2025 1:45 PM CDT Office Visit Department of Otorhinolaryngology in [place], [place] [address] [place] [phone] Quirino Bobo M.D. [address] [place] [phone] 02/09/2025 3:00 PM CDT [facility] in [place], [place] [address] [place] [phone] Quirino Jackson M.D. [address] [place] [phone] 02/10/2025 11:00 AM CDT Lab Department of Laboratory Medicine and Pathology, [facility], in [place], [place] [address] [place] [phone] German Pierce P.A.-C. [address] [place] [phone] 02/10/2025 1:00 PM CDT Office Visit Department of Oncology in [place], [place] [address] [place] [phone] Rik Aguirre M.D., M.S. [address] [place] [phone] 02/13/2025 9:45 AM CDT Infusion Department of Oncology in [place], [place] [address] [place] [phone] German Pierce P.A.-CCourtney [address] [place] [phone] 02/19/2025 10:00 AM CDT Lab Department of Laboratory Medicine and Pathology, [facility] in [place], [place] [address] [place] [phone] German Pierce P.A.-Wade [address] [place] [phone] 02/19/2025 12:00 PM CDT Infusion Department of Oncology in [place], [place] [address] [place] [phone] German Pierce P.A.-CCourtney [address] [place] [phone] 03/03/2025 11:00 AM CDT Lab Department of Laboratory Medicine and Pathology, [facility] in [place], [place] [address] [place] [phone] German Pierce P.A.-CCourtney [address] [place] [phone] 03/03/2025 1:00 PM CDT Office Visit Department of Oncology in [place], [place] [address] [place] [address] Rik Aguirre M.D., M.S. [address] [place] [phone] 03/04/2025 7:30 AM CDT Infusion Department of Oncology in [place], [place] [address] [place] [phone] German Pierce P.A.-C. [address] [place] [phone] 03/11/2025 10:00 AM CDT Lab Department of Laboratory Medicine and Pathology, [place], [place] [address] [place] [phone] German Pierce P.A.-C. [address] [place] [phone] 03/11/2025 12:00 PM CDT Infusion Department of Oncology in [place], [place] [address] [place] [phone] German Pierce P.A.-C. [address] [place] [phone] 03/24/2025 7:10 AM CDT Lab Department of Laboratory Medicine and Pathology, [place], [place] [address] [place] [phone] German Pierce P.A.-C. [address] [place] [phone] 03/24/2025 9:20 AM CDT Office Visit Department of Oncology in [place], [place] [address] [place] [phone] Rik Aguirre M.D., M.S. [address] [place] [phone] 03/24/2025 10:15 AM CDT Infusion Department of Oncology in [place], [place] [address] [place] [phone] German Pierce P.ACourtney-CCourtney [address] [place] [phone] 04/01/2025 11:00 AM CDT Lab Department of Laboratory Medicine and Pathology, [facility] in [place], [place] [address] [place] [phone] German Pierce P.A.-CCourtney [address] [place] [phone] 04/01/2025 1:00 PM CDT Infusion Department of Oncology in [place], [place] [address] [place] [phone] German Pierce P.ACourtney-CCourtney [address] [place] [phone] Scheduled Procedures Name Priority Associated Diagnoses Date/Ti me INSERTION GOLD WEIGHT EYELID Paralysis Facial 01/30/2025 4:28 PM CDT REPAIR ECTROPION Paralysis Facial 01/30/2025 4:28 PM CDT GRAFT FASCIA AUNEL Paralysis Facial 01/30/2025 4:28 PM CDT documented as of this encounter Goals Goal Patient Goal Type Associated Problems Recent Progress Patient-Stated? Author Autogenerat ed Goal Care Plan Autogenerated Problem No Quirino Jackson M.D. 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),Secondary Malignant Neoplasm Lymph Node (HCC),Other Senior Living Current Drug Therapy New 01/21/2025 9:03 AM CDT 150 mg 500 mL/hr gemcitabine 1,400 mg in NaCl 0.9% 311.82 mL IVPB (Gemzar) 1,400 mg (rounded from 1,408 mg = 800 mg/m2 1.76 m2 Treatment Plan BSA from Measured weight), intravenous, at 624 mL/hr, Administer over 30 Minutes, Once, On Sun01/21/25 at 1115, For 1 doseIndications:Malignant Neoplasm Of Nasopharynx (HCC),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),Secondary Malignant Neoplasm Lymph Node (HCC),Other Implementation Project Coordinator Current Drug Therapy New 01/21/2025 11:47 AM CDT 1,400 mg 624 mL/hr NaCl 0.9 % bolus 500 mL 500 mL, intravenous, at 500 mL/hr, Administer over 1 Hours, Once, On Sun01/21/25 at 0845, For 1 dose, Give prior to CISplatin.Indications:Malign ant Neoplasm Of Nasopharynx (HCC),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),Secondary Malignant Neoplasm Lymph Node (HCC),Other Senior Living Current Drug Therapy New Bag 01/21/2025 8:56 AM CDT 500 mL 500 mL/hr palonosetron injection 0.25 mg (Aloxi) 0.25 mg, intravenous, Once, On Sun01/21/25 at 0845, For 1 doseIndications:Malignant Neoplasm Of Nasopharynx (HCC),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 Use 0.2 or 0.22 micron filter tubing during administration. 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),Secondary Malignant Neoplasm Lymph Node (HCC),Other Implementation Project Coordinator Current Drug Therapy New Bag 01/21/2025 10:39 AM CDT 240 mg 116 mL/hr documented in this encounter Additional Health Concerns Active Problems Noted Date Diagnosed Date Autogenerated Problem 01/05/2025 Infection Onset Date Last Indicated Resolved Time Protective Environment 01/21/2025 01/21/2025 Assessment Noted Time PHQ-9 Depression Total Score: 5 12/20/19 19 2:49 PM CDT documented as of this encounter 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
--- OUTSIDE RECORDS SUMMARY | 2025-01-25 11:27 | XMS_ITS | Encounter Summary ---
Author Organization [facility] Address [address] [place] [address] Care Team Providers Care Manager Community Outreach Name Role Phone Unavailable Primary Care Provider Unavailabl e Reason for Visit * Reason Comments Weakness Encounter Details Date Type Department Care Team (Late st Contact Info) Description 01/25/2025 11:27 AM CDT - 01/25/2025 4:35 PM CDT Emergency [facility] Emergency Department [address], [place] [id number] Bridger Ferrell MD [address] [place], [place] [id number] Discharge Disposition: Returning Home/Self Care Social History Tobacco Use Types Packs/Day Years Used Date Smoking Tobacco: Never Smokeless Tobacco: Never Alcohol Use Standard Drinks/Week Comments Yes 1 (1 standard drink = 0.6 oz pur e alcohol) occasionally on weekends Humiliation, Afraid, Rape, and Kick questionnair e Answer Date Recorded Within the last year, have y ou been afraid of your partner or ex-partner? No 01/25/2025 Within the last year, have y ou been humiliated or emotionally abused in other ways by your partner or ex-partner? No Within the last year, have y ou been kicked, hit, slapped, or otherwise physically hurt by your partner or ex-partner? No 01/25/2025 Within the last year, have y ou been raped or forced to have any kind of sexual activity by your partner or ex-partner? No 01/25/2025 Sex and Gender Information Value Date Recorded Sex Assigned at Not on file Legal Sex Male 4:05 PM CDT Gender Identity Not on file Sexual Orientation Not on file documented as of this encounter Last Filed Vital Signs Vital Sign Reading Time Taken Comments Blood Pressure 117/73 01/25/2025 4:15 PM CDT Pulse 64 01/25/2025 4:15 PM CDT Temperature 36.3 C (97.3 F) 01/25/2025 11:26 AM CDT Respiratory Rate 14 01/25/2025 4:15 PM CDT Oxygen Saturation 97% 01/25/2025 4:15 PM CDT Inhaled Oxygen Concentration - - Weight - - Height 167.6 cm (5' 6) 01/25/2025 11:26 AM CDT Body Mass Index - - documented in this encounter Discharge Instructions * Attachments The following attachments cannot be sent through Care Everywhere. * Dizziness (AfterCare(R) Instructions(ER/ED)) (Niuean) documented in this encounter Medications at Time of Discharge acetaminophen (TYLENOL) 500 mg oral tablet Take 1,000 mg by mouth every 8 (eight) hours as needed. bisacodyl (DULCOLAX) 5 mg oral delayed released tablet Take 1-3 tablets (5-15 mg) by mouth once a day as needed for Constipation. 15 tablet 10/06/2018 famotidine (PEPCID) 20 mg oral tablet Take 1 tablet (20 mg) by mouth twice a day. 60 tablet 10/06/2018 HYDROcodone-acet aminophen (NORCO) 5-325 mg oral tablet Take 1 tablet by mouth every 6 (six) hours as needed for pain. 10 tablet 01/25/2025 lidocaine-priloc filiberto (EMLA) 2.5-2.5 % Top cream cream as needed (venous access port). 09/25/2018 LORazepam (ATIVAN) 0.5 mg oral tablet Take 1 tablet by mouth every 4 (four) hours as needed (nausea). 09/25/2018 ondansetron (ZOFRAN) 4 mg oral ODT Dissolve 2 tablets (8 mg) in mouth every 12 (twelve) hours as needed for nausea. 10 tablet 12/01/2024 oxyCODONE, immediate release, (ROXICODONE) 5 mg oral tablet Take 1-2 tablets (5-10 mg) by mouth every 4 (four) hours as needed. 10 tablet 10/06/2018 polyethylene glycol (MIRALAX) 17 gram oral packet Take 17 g by mouth once daily. Mix each dose in 4-8 ounces of liquid as directed. 14 packet 10/07/2018 prochlorperazine (COMPAZINE) 10 mg oral tablet Take 10 mg by mouth every 6 (six) hours as needed (nausea). 09/25/2018 senna (SENOKOT) 8.6 mg oral tablet TAKE 1 TABLET BY ALUT DAILY, MAY INCREASE UP TO 4 TABLETS TWICE A DAY IF NEEDED FOR CONSTIPATION 0 09/27/2018 documented as of this encounter ED Notes * Bridger Ferrell MD - 01/25/2025 1:06 PM CDT Emergency Department Note History of Present Illness Chief Complaint Chief Complaint Patient presents with Weakness HPI Rusty Putnam is a 59 y.o. 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 Patient has had has had generalized weakness over the past several days. He restarted chemotherapy 5 days ago and symptoms redeveloped following this. He reports vertigo which she has had in the past. He denies any focal weakness or new neurologic symptoms otherwise. Patient has had nausea and poor appetite. He denies any diarrhea. He has no GI bleed reported. He denies any chest pain or abdominal pain.No other complaints expressed at this time. He was discussed with their oncologist and told to get IV fluids in the hospital. Independent Historian History obtained from patient and son Review of External Notes None Past Medical History Medical History and Problem List Past Medical History: Diagnosis Date Cancer (HCC) Heartburn Pharyngeal cancer (HCC) Patient Active Problem List Diagnosis Code Constipation, unspecified constipation type K59.00 Cervical pain (neck) M54.2 Syncope R55 Medications Current Outpatient Medications: Medication Sig acetaminophen (TYLENOL) 500 mg oral tablet Take 1,000 mg by mouth every 8 (eight) hours as needed. bisacodyl (DULCOLAX) 5 mg oral delayed released tablet Take 1-3 tablets (5-15 mg) by mouth once a day as needed for Constipation. famotidine (PEPCID) 20 mg oral tablet Take 1 tablet (20 mg) by mouth twice a day. lidocaine-prilocaine (EMLA) 2.5-2.5 % Top cream cream as needed (venous access port). LORazepam (ATIVAN) 0.5 mg oral tablet Take 1 tablet by mouth every 4 (four) hours as needed (nausea). ondansetron (ZOFRAN) 4 mg oral ODT Dissolve 2 tablets (8 mg) in mouth every 12 (twelve) hours as needed for nausea. oxyCODONE, immediate release, (ROXICODONE) 5 mg oral tablet Take 1-2 tablets (5- 10 mg) by mouth every 4 (four) hours as needed. polyethylene glycol (MIRALAX) 17 gram oral packet Take 17 g by mouth once daily. Mix each dose in 4-8 ounces of liquid as directed. prochlorperazine (COMPAZINE) 10 mg oral tablet Take 10 mg by mouth every 6 (six) hours as needed (nausea). senna (SENOKOT) 8.6 mg oral tablet TAKE 1 TABLET BY MOUTJH DAILY, MAY INCREASE UP TO 4 TABLETS TWICE A DAY IF NEEDED FOR CONSTIPATION Surgical History Past Surgical History: Procedure Laterality Date HX EAR TUBE Right IR PORT PLACEMENT 10/01/2018 Physical Exam Temperature: 97.3 ??F (36.3 ??C) Pulse: 97 Respirations: (!) 74 BP: (!) 85/36 SpO2: 99 % Nursing note and vitals reviewed. Constitutional: No distress Head: Normocephalic and atraumatic. Nose: Nose normal. Mouth/Throat: Oropharynx is clear and moist. Eyes: EOM are normal. Pupils are equal, round, and reactive to light. Cardiovascular: Regular rate and rhythm. No murmurs. Pulmonary/Chest: No respiratory distress. Clear to auscultation bilaterally. Abdominal: Nondistended. No tenderness. Musculoskeletal: Normal range of motion. Neurological: Patient is alert and oriented. Moves all extremities. No gross deficits. Mild right facial droop which is baseline for the patient. Skin: Skin is warm and dry. Vitals Trending Patient Vitals for the past 24 hrs: BP Temp Pulse Resp SpO2 Height 01/25/25 1230 126/83 -- 70 12 96 % -- 01/25/25 1215 110/74 -- 71 22 99 % -- 01/25/25 1200 111/68 -- 64 20 97 % -- 01/25/25 1145 110/72 -- 65 12 96 % -- 01/25/25 1130 135/84 -- 62 (!) 30 97 % -- 01/25/25 1126 (!) 85/36 97.3 ??F (36.3 ??C) 97 (!) 74 99 % 5' 6 (1.676 m) Diagnostics Lab Results Labs Reviewed CBC/DIFF - Abnormal; Notable for the following components: Result Value WBC 13.2 (*) Hemoglobin 13.3 (*) Platelet Count 473 (*) PMN Absolute 11.74 (*) All other components within normal limits BASIC METAB PROFILE - Abnormal; Notable for the following components: Sodium 134 (*) Potassium 3.2 (*) BUN (Urea Nitro) 24 (*) Creatinine 1.20 (*) Glucose 118 (*) All other components within normal limits LIVER PROFILE - Abnormal; Notable for the following components: ALT 100 (*) Alkaline Phosphatase 217 (*) All other components within normal limits MICROSCOPIC UA ONLY EXTRA TUBE-SST (LAB USE ONLY) EXTRA TUBE PST (LAB USE ONLY) EXTRA TUBE-BLOOD BANK (LAB USE ONLY) EXTRA TUBE-COAG (LAB USE ONLY) EXTRA TUBE-EDTA (LAB USE ONLY) Imaging No orders to display EKG Lab Results Component Value Date EKG 01/25/2025 Comment: [facility] Test Date: 2025-01-25 Pat Name: RUSTY PUTNAM Department: ED Room: [facility] 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: 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 : 1965 Requested By: BRIDGER FERRELL MD Order Number: [id number] Reading MD: BRIDGER FERRELL MD Measurements Intervals Henry Rate: 61 P: 70 NJ: 210 QRS: 73 QRSD: 89 T: 60 QT: 382 QTc: 385 Interpretive Statements SINUS RHYTHM WITH FIRST DEGREE AV BLOCK EARLY REPOLARIZATION ABNORMAL ECG Compared to ECG 10/05/2018 09:59:45 Early repolarization now present Independent Interpretation None ED Course Medications Administered Medications sodium chloride 0.9 % IV BOLUS 1,000 mL (1,000 mL Intravenous New Bag 01/25/25 1304) ondansetron (Zofran) injection 4 mg (4 mg IV Push Given 01/25/25 1200) sodium chloride 0.9 % IV BOLUS 1,000 mL (0 mL Intravenous Stopped 01/25/25 1238) Procedures None Discussion of Management None Social Determinants of Health adding to complexity of care None Medical Decision Making / Diagnosis MIPS None MDM Rusty Putnam is a 59 y.o. male presenting for weakness. Patient has had weakness and dizziness over the past several days. He recently restarted his chemotherapy and has developed the symptoms following this. He has had similar symptoms in the past. On arrival here he is hemodynamically stable. Labs were obtained and generally reassuring with the exception of very mild hypokalemia which was repleted here. He is given 2 L of IV fluids. He feels much improved with the above medications with resolution of his vertigo. He did have some recurrent pain which he relates to his known cancer. He is given pain medication here along with a small prescription of the medication for home as well. He should discuss further treatments with his oncology team. He should return here with worsening symptoms orother concerns Disposition The patient was discharged. New Prescriptions No medications on file Diagnosis ICD-10-CM 1. Weakness R53.1 2. Dizziness R42 Bridger Ferrell MD [facility] EMERGENCY DEPARTMENT [employer] 01/25/2025 * Yamel Jackson RN - 01/25/2025 12:53 PM CDT IVF finished, patient declines need to urinate. Urinal at bedside. * Dante Martinez RN - 01/25/2025 11:26 AM CDT Patient brought in be family. Patient is here for weakness and dehydration. Hx of neck cancer. Lastchemo treatment last Sunday. Patient has not been feeling well all morning. documented in this encounter Plan of Treatment Not on file documented as of this encounter Procedures Procedure Name Priority Date/Time Associated Diagnosis Comments URINE MACROSCOPIC (POCT) DIP Routine 01/25/2025 2:20 PM CDT MICROSCOPIC UA ONLY STAT 01/25/2025 2 :06 PM CDT ELECTROCARDIOGRAM STAT 01/25/2025 12: 06 PM CDT EXTRA TUBE-EDTA STAT 01/25/2025 11:40 AM CDT EXTRA TUBE-COAG STAT 01/25/2025 11:40 AM CDT EXTRA TUBE-BLOOD BANK STAT 01/25/2025 11:40 AM CDT EXTRA TUBE-SST (LAB USE ONLY) STAT 01/25/2025 11:40 AM CDT LIVER PROFILE STAT Add-on 01/25/2025 11:40 AM CDT BASIC METAB PROFILE STAT 01/25/2025 1 1:40 AM CDT CBC/DIFF STAT 01/25/2025 11:40 AM CDT EXTRA TUBE PST STAT 01/25/2025 11:40 AM CDT documented in this encounter Results * Urine Macroscopic (POCT) Dip (01/25/2025 2:20 PM CDT) PH URINE 6.0 4.5 - 8.0 01/25/2025 2:18 PM CDT [facility] SP.GRAVITY, UA 1.015 1.015 - 1.025 01/25/2025 2:18 PM CDT [facility] Glucose, UA Negative Negative mg/dL 01/25/2025 2:18 PM CDT [facility] Ketone, UA Negative Negative mg/dL 01/25/2025 2:18 PM CDT [facility] Bilirubin, UA Negative Negative 01/25/2025 2:18 PM CDT [facility] UROBILINOGEN, UA 0.2 0.2 - 1.0 EU/dL 01/25/2025 2:18 PM CDT [facility] PROTEIN, UA Negative Negative, Trace mg/dL 01/25/2025 2:18 PM CDT [facility] OCCULT BLOOD, UA Negative Negative, Trace, TRACE-LYSED, TRACE-INTACT 01/25/2025 2:18 PM CDT [facility] WBC ESTERASE, UA Negative Negative, Trace 01/25/2025 2:18 PM CDT [facility] NITRITE, UA Negative Negative 01/25/2025 2:18 PM CDT [facility] Urine 01/25/2025 2:20 PM CDT 01/25/2025 2:18 PM CDT Bridger Ferrell MD LAB POINT OF CARE TEST RESULT S Final Result Performing Organization Address [facility] Number [facility] [address] [place] [address] * Microscopic UA Only (01/25/2025 2:06 PM CDT) RBC-UA Occasional None Seen, Occasional , 1-2 /hpf 01/25/2025 2:45 PM CDT [facility] WBC-UA Occasional None Seen, Occasional , 1-4 /hpf 01/25/2025 2:45 PM CDT [facility] Urine URINE SPECIMEN / Unknown 01/25/2025 2:06 PM CDT 01/25/2025 2:19 PM CDT us Bridger Ferrell MD URINE ORDERABLE Final Result Performing Organization Address [facility] Number [facility] [address] [place] [address] * Electrocardiogram (01/25/2025 12:06 PM CDT) [facility] Comment: [facility] Test Date: 2025-01-25 Pat Name: RUSTY PUTNAM Department: ED Room: ED25 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: [phone] : 1965 Requested By: BRIDGER FERRELL MD Order Number: [id number] Reading MD: Antoinette Kevin MD Measurements Intervals Henry Rate: 61 P: 70 NJ: 210 QRS: 73 QRSD: 89 T: 60 QT: 382 QTc: 385 Interpretive Statements SINUS RHYTHM WITH FIRST DEGREE AV BLOCK EARLY REPOLARIZATION ABNORMAL ECG Compared to ECG 10/05/2018 09:59:45 Early repolarization now present Electronically Signed On 01-25-2025 13:43:34 CDT by Antoinette Kevin MD 01/25/2025 12:0 6 PM CDT us Bridger Ferrell MD EKG ORDERABLE Final Result Performing Organization Address City/[facility]/ZIP Co de Phone Number KARISHMA TORRES [address] [place] [phone] * (ABNORMAL) Liver Profile (01/25/2025 11:40 AM CDT) ALT 100(H) 7 - 40 U/L 01/25/2025 12:22 PM CDT [facility] Alkaline Phosphatase 217(H) 46 - 116 U/L 01/25/2025 12:22 PM CDT [facility] AST (SGOT) 29 13 - 40 U/L 01/25/2025 12:22 PM CDT [facility] Protein Total 6.8 5.7 - 8.2 g/dL 01/25/2025 12:22 PM CDT [facility] Albumin 3.4 3.4 - 5.0 g/dL 01/25/2025 12:22 PM CDT [facility] Bilirubin-Direct 0.22 <0.40 mg/dL 01/25/2025 12:22 PM CDT [facility] Bilirubin-Total 0.80 0.30 - 1.20 mg/dL 01/25/2025 12:22 PM CDT [facility] Blood 01/25/2025 11:4 0 AM CDT 01/25/2025 11:50 AM CDT us Bridger Ferrell MD CHEMISTRY ORDERABLE Final Res ult [facility] [address] [place] [phone] * (ABNORMAL) Basic Metabolic Profile (01/25/2025 11:40 AM CDT) Sodium 134(L) 136 - 145 mmol/L 01/25/2025 12:17 PM CDT [facility] Potassium 3.2(L) 3.4 - 5.1 mmol/L 01/25/2025 12:17 PM T [facility] Chloride 100 98 - 108 mmol/L 01/25/2025 12:17 PM T [facility] Carbon Dioxide 27 20 - 31 mmol/L 01/25/2025 12:17 PM T [facility] BUN (Urea Nitro) 24(H) 9 - 23 mg/dL 01/25/2025 12:17 PM T [facility] Creatinine 1.20(H) 0.73 - 1.18 mg/dL 01/25/2025 12:17 PM T [facility] Est GFR (CKD-EPI) >60.00 >60.00 mL/min/1. 73m2 01/25/2025 12:17 PM T [facility] Comment:Calculation based on the Chronic Kidney Disease Epidemiology Collaboration (CKD-EPI) equation refit without adjustment for race. Glucose 118(H) 74 - 106 mg/dL 01/25/2025 12:17 PM T [facility] Calcium, Serum 10.0 8.7 - 10.4 mg/dL 01/25/2025 12:17 PM [facility] Anion Gap 7.0 0.0 - 15.0 mmol/L 01/25/2025 12:17 PM T [facility] Blood 01/25/2025 11:4 0 AM CDT 01/25/2025 11:49 AM CDT us Bridger Ferrell MD CHEMISTRY ORDERABLE Final Res ult [facility] [address] [place] [address] * (ABNORMAL) CBC w/diff (01/25/2025 11:40 AM CDT) WBC 13.2(H) 4.3 - 10.8 K/uL 01/25/2025 11:56 AM [facility] RBC 4.72 4.60 - 6.20 M/uL 01/25/2025 11:56 AM [facility] Hemoglobin 13.3(L) 14.0 - 18.0 gm/dL 01/25/2025 11:56 AM [facility] Hematocrit 40.7 40.0 - 54.0 % 01/25/2025 11:56 AM [facility] MCV 86 80 - 100 fL 01/25/2025 11:56 AM [facility] MCH 28 27 - 33 pg 01/25/2025 11:56 AM [facility] MCHC 33 33 - 36 gm/dL 01/25/2025 11:56 AM [facility] RDW 12.1 11.5 - 14.5 % 01/25/2025 11:56 AM [facility] Platelet Count 473(H) 150 - 400 K/UL 01/25/2025 11:56 AM [facility] MPV 8.5 6.5 - 12 fL 01/25/2025 11:56 AM [facility] PMN % 89.2 % 01/25/2025 11:56 AM [facility] IG % 0.5 <=1.0 % 01/25/2025 11:56 AM [facility] Lymphocyte % 8.2 % 01/25/2025 11:56 AM [facility] Monocyte % 1.0 % 01/25/2025 11:56 AM [facility] Eosinophil % 0.6 % 01/25/2025 11:56 AM [facility] Basophil % 0.5 % 01/25/2025 11:56 AM [facility] PMN Absolute 11.74(H) 1.80 - 7.80 K/uL 01/25/2025 11:56 AM [facility] Lymphocyte Absolute 1.08 1.00 - 4.00 K/uL 01/25/2025 11:56 AM [facility] Monocyte Absolute 0.13 0.00 - 1.00 K/uL 01/25/2025 11:56 AM [facility] Eosinophil Absolute 0.08 0.00 - 0.45 K/uL 01/25/2025 11:56 AM CDT [facility] Basophil Absolute 0.06 0.00 - 0.20 K/uL 01/25/2025 11:56 AM CDT [facility] Nucl RBC % 0.0 0.0 - 0.0 /100 WBC 01/25/2025 11:56 AM CDT [facility] Nucl RBC Absolute 0.00 0.00 - 0.00 K/uL 01/25/2025 11:56 AM CDT [facility] Blood 01/25/2025 11:4 0 AM CDT 01/25/2025 11:49 AM CDT us Bridger Ferrell MD HEMATOLOGY ORDERABLE Final Re sult Performing Organization Address [facility] Co de Phone Number [facility] [address] [place] [address] * Extra Tube PST (Lab Use Only) (01/25/2025 11:40 AM CDT) Blood 01/25/2025 11:4 0 AM CDT 01/25/2025 11:49 AM CDT Bridger Ferrell MD CHEMISTRY ORDERABLE Final Res ult Performing Organization Address [facility] de Phone Number [facility] [address] [place] [address] * Extra Tube-SST (Lab Use Only) (01/25/2025 11:40 AM CDT) Blood 01/25/2025 11:4 0 AM CDT 01/25/2025 11:50 AM CDT us Bridger Ferrell MD CHEMISTRY ORDERABLE Final Res ult Performing Organization Address [facility] Co de Phone Number [facility] [address] [place] [address] * Extra Tube-EDTA (Lab Use Only) (01/25/2025 11:40 AM CDT) Blood 01/25/2025 11:4 0 AM CDT 01/25/2025 11:49 AM CDT us Bridger Ferrell MD HEMATOLOGY ORDERABLE Final Re sult Performing Organization Address [facility] de Phone Number [facility] [address] [place] [address] * Extra Tube-Coag (Lab Use Only) (01/25/2025 11:40 AM CDT) Blood 01/25/2025 11:4 0 AM CDT 01/25/2025 11:48 AM CDT us Bridger Ferrell MD COAGULATION ORDERABLE Final R esult Performing Organization Address [facility] Phone Number [facility] [address] [place] [address] * Extra Tube-Blood Bank (Lab Use Only) (01/25/2025 11:40 AM CDT) Blood 01/25/2025 11:4 0 AM CDT 01/25/2025 11:47 AM CDT us Bridger Ferrell MD BLOOD BANK ORDERABLE Final Re sult Performing Organization Address [facility] Phone Number [facility] [address] [place] [address] documented in this encounter Visit Diagnoses Diagnosis Weakness- Primary Other malaise and fatigue Dizziness Dizziness and giddiness documented in this encounter Administered Medications Inactive Administered Medications - up to 3 most recent administrations Medication Order MAR Action Action Date Dose Rate Site HYDROcodone-acetaminophen (NORCO) 5-325 mg tablet 1 tablet 1 tablet, oral, ONCE, 1 dose, On 01/25/25 at 1500 Given 01/25/2025 3:07 PM CDT 1 tablet ondansetron (Zofran) injection 4 mg 4 mg, IV Push, ONCE, 1 dose, On 5/18/25 at 1145 Given 01/25/2025 12:00 PM CDT 4 mg potassium chloride (K-DUR) extended release tablet 40 mEq 40 mEq, oral, ONCE, 1 dose, On 01/25/25 at 1430 Given 01/25/2025 3:07 PM CDT 40 mEq sodium chloride 0.9 % IV BOLUS 1,000 mL 1,000 mL, Intravenous, ONCE, 1 dose, On 01/25/25 at 1215, Administer over 30 Minutes New Bag 01/25/2025 12:08 PM CDT 1,000 mL 2000 mL/hr sodium chloride 0.9 % IV BOLUS 1,000 mL 1,000 mL, Intravenous, ONCE, 1 dose, On 01/25/25 at 1300, Administer over 30 Minutes New Bag 01/25/2025 1:04 PM CDT 1,000 mL 2000 mL/hr documented in this encounter Active and Recently Administered Medications Times are shown in CDT. Scheduled Medication Order 01/23/2025 01/24/2025 01/25/2025 HYDROcodone-acetaminophen (NORCO) 5-325 mg tablet 1 tablet (COMPLETED) 1 tablet, oral, ONCE, 1 dose, On 01/25/25 at 1500 1507 (Given - Provid er: Yamel Jackson RN) ondansetron (Zofran) injection 4 mg (COMPLETED) 4 mg, IV Push, ONCE, 1 dose, On 01/25/25 at 1145 1200 (Given - Provid er: Yamel Jackson RN) potassium chloride (K-DUR) extended release tablet 40 mEq (COMPLETED) 40 mEq, oral, ONCE, 1 dose, On 01/25/25 at 1430 1507 (Given - Provid er: Yamel Jackson RN) sodium chloride 0.9 % IV BOLUS 1,000 mL (COMPLETED) 1,000 mL, Intravenous, ONCE, 1 dose, On 01/25/25 at 1215, Administer over 30 Minutes 1208 (New Bag - Prov ider: Yamel Jackson RN)1238 (Stopped - Provider: Yamel Jackson RN) sodium chloride 0.9 % IV BOLUS 1,000 mL (COMPLETED) 1,000 mL, Intravenous, ONCE, 1 dose, On 01/25/25 at 1300, Administer over 30 Minutes 1304 (New Bag - Prov ider: Yamel Jackson RN)1334 (Stopped - Provider: Yamel Jackson RN) documented in this encounter
[2025-01-27] VITALS (24 sets, daily range): BP systolic 88–131; BP diastolic 59–83; PULSE 66–77; RESP 0–29; TEMP 36.9; O2SAT 97–99; BMI 23.2
--- OUTSIDE RECORDS SUMMARY | 2025-01-27 14:55 | XMS_ITS | Encounter Summary ---
Author Organization [facility] Address [address] [place] [address] Care Team Providers Care Dozer Operator Name Role Phone Elsewhere, Pcp Primary Care Provider Unavailabl e Reason for Referral * Outpatient (Routine) - Closed Specialty Diagnoses / Procedures Referred By Luz wu Referred To Contact Radiation Oncology Tasneem Grayson M.D. [address] [place] [address] Phone: tel: fax: [facility] Referral ID Status Reason Start Date Expiration Date Visits Re quested Visits Authorized [id number] Closed 12/11/2024 06/12/2026 1 1 Reason for Visit * Outpatient (Routine) - Closed Specialty Diagnoses / Procedures Referred By Luz uw Referred To Contact Radiation Oncology Tasneem Grayson M.D. [address] [place] [address] Phone: tel: fax: [facility] Referral ID Status Reason Start Date Expiration Date Visits Re quested Visits Authorized [id number] Closed 12/11/2024 06/12/2026 1 1 Encounter Details Date Type Department Care Team (Latest Contact Info) Description 01/27/2025 2:55 PM CDT - 01/27/2025 4:39 PM CDT Hospital Encounter Department of Radiation Oncology in [place], [place] [address] [place] [phone] Tasneem Grayson M.D. [address] [place] [address] Malignant Neoplasm Of Nasopharynx (HCC) (Primary Dx) Social History Tobacco Use Types Packs/Day Years Used Date Smoking Tobacco: Never Passive Smoke Exposure: Never Smokeless Tobacco: Never Alcohol Use Standard Drinks/Week Comments Not Currently 1 (1 standard drink = 0.6 oz pure alcohol) patient states no alcohol in 6+months [facility] Utilities Answer Date Recorded In the past 12 months has [employer] gas, oil, or water [employer] threatened to shut off services in your [...] week 08/29/2022 How often do you attend [facility] or [facility]? Patient declined 08/29/2022 Do you belong to any clubs o r organizations such as bahai groups, unions, fraternal or athletic groups, or [...] Answer Date Recorded PHQ-2 Score 0 02/13/2019 [facility] - Occupational Stress [...] your living situation today? [facility] 10/28/2024 Education Answer Date Recorded What is the highest level of school you have completed or the highest degree you have received? Associate degree: occupational, technical, or vocational program 08/29/2022 Sex and Gender Information Value Date Recorded Sex Assigned at Male 11/04/2018 9:57 AM DIRECT SALES CONSULTANT Legal Sex Male 4:48 PM DIRECT SALES CONSULTANT Gender Identity Male 11/04/2018 9:57 AM DIRECT SALES CONSULTANT Sexual Orientation Straight 11/04/2018 9: 57 AM DIRECT SALES CONSULTANT documented as of this encounter Last Filed Vital Signs Vital Sign Reading Time Taken Comments Blood Pressure 89/57 01/27/2025 3:19 PM CDT Pulse 76 01/27/2025 3:19 PM CDT Temperature - - Respiratory Rate - - Oxygen Saturation - - Inhaled Oxygen Concentration - - Weight - - Height - - Body Mass Index - - documented in this encounter Medications at Time of Discharge acetaminophen (TYLENOL) 500 mg tablet Take 2 tablets (1,000 mg total) by mouth every 6 (six) hours. 3 ADEK multivitamins with minerals (MVW Complete Formulation) 37.5 mcg-1,000 mcg chewable tablet Chew 1 tablet daily. 60 tablet 2 5 dexAMETHasone (Decadron) 4 mg tabletIndications:M alignant Neoplasm Of Nasopharynx (HCC),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),Secondary Malignant Neoplasm Lymph Node (HCC),Other Custodial Current Drug Therapy Take 2 tablets (8 mg total) by mouth daily in the morning for 3 days after chemo on Days 2, 3 and 4 of each cycle. 18 tablet 1 01/21/2025 4:15 PM CDT 5 erythromycin (ROMYCIN) 5 mg/gram (0.5 %) ophthalmic ointment Apply 1 cm to both eyes daily as needed. 3 fluoride, sodium, (PREVIDENT) 1.1 % gel dental gel Apply 1 Application to the mouth or throat daily. [place], Floss, Rinse. Apply a thin ribbon to trays for 5 minutes preferably at bedtime: expectorate gel and do not eat, drink, or rinse for 30 minutes. 56 g 11 4 HYDROcodone-acetami nophen ([place]) 5-325 mg per tabletIndications:P rolonged Acute Pain/Traumatic [...] for dizziness. 30 tablet 10/31/2024 3:32 PM DIRECT SALES CONSULTANT 5 OLANZapine (ZyPREXA) 5 mg tabletIndications:M alignant Neoplasm Of Nasopharynx (HCC),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),Secondary Malignant Neoplasm Lymph Node (HCC),Other Application Software Developer Current Drug Therapy Take 1 tablet (5 mg total) by mouth as directed. Take daily starting at bedtime first day of chemotherapy continuing for 4 days after each chemotherapy dose. 30 tablet 3 5 ondansetron (Zofran) 8 mg tabletIndications:M alignant Neoplasm Of Nasopharynx (HCC),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),Secondary Malignant Neoplasm Lymph Node (HCC),Other Custodial Current Drug Therapy Take 1 tablet (8 mg total) by mouth every 8 (eight) hours as needed for nausea or vomiting (unrelieved by prochlorperazine) . 30 tablet 3 01/21/2025 4:15 PM CDT 5 01/22/20 26 ondansetron ODT (Zofran-ODT) 4 mg disintegrating tablet [...] (two) times a day as needed. 2 prochlorperazine (Compazine) 10 mg tabletIndications:M alignant Neoplasm Of Nasopharynx (HCC),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),Secondary Malignant Neoplasm Lymph Node (HCC),Other Custodial Current Drug Therapy Take 1 tablet (10 mg total) by mouth every 6 (six) hours as needed for nausea or vomiting. First go to med for nausea. 30 tablet 3 01/21/2025 4:15 PM CDT 5 01/22/20 26 sodium chloride 0.9 % nebulizer solution Inhale 5 mL by nebulization as needed (tracheal secretions). 90 mL 12 4 Systane, propylene glycoL, 0.4-0.3 % ophthalmic solution Administer 1 drop into both eyes 4 (four) times a day as needed for dry eyes. INSTILL 1 DROP INTO EACH EYE 4 TIMES A DAY// ASSESSOR 1 NCOS BOUCHRA 2 SAB QHOV MUAG, 1 HNUB 4 ZAUG 3 vitamin E 180 mg (400 Unit) capsule Take 1 capsule (180 mg total) by mouth daily. 90 capsule 1 3 documented as of this encounter Progress Notes * Tasneem Grayson M.D. - 01/27/2025 3:30 PM CDT RADIATION ONCOLOGY FOLLOW-UP NOTE SUBJECTIVE REFERRAL SOURCE Established patient DIAGNOSIS 1. Recurrent nasopharynx cancer CHIEF COMPLAINT/REASON FOR VISIT Mr. Stew Jj is a 59 y.o. 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 He then developed an infiltrative mass like lesion in 2022 which on all biopsies have been negative and felt to representworsening radiation necrosis. Over the last year he began developing multiple cranial nerve deficits as well as a rising EBV DNA which made recurrence more likely. He started systemic chemotherapy last week and is not tolerating this well with nausea and vomiting. Oncology History Malignant Neoplasm Of Nasopharynx (HCC) 12/01/2016 Other Reported a several month history of headache. In February underwent a MRI of the brain. 08/23/2018 Biopsy/Pathology While in [facility], underwent CT temporal bone (symptoms of right [...] as well. 12/22/2024 Other EBV DNA: 116 01/05/[address] Temporal Bone Impression: Similar to MRI, 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 Small dehiscent areas alongright tegmen tympani. 01/21/2025 - Chemotherapy Toripalimab-tpzi / Gemcitabine / CISplatin Start Date: 01/08/2025 (Planned) 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) INTERVAL HISTORY: Since I last saw Mr. Stew Jj he reports that he did go to the ER two days ago due to severe nausea and vomiting. He has been unable to keep things down. The Zofran causes constipation. He feels that his urine is quite dark. He has not been able to eat more than crackers. He states that his right sided headache pain is a 8 on a 0-10 pain scale. He has no new cranial nerve deficits. OBJECTIVE BP (!) 89/57 (BP Location: Right arm, Patient Position: Sitting, Cuff Size: Regular) Pulse 76 General: Mr. Stew Jj is a well-developed, thin male. He does not appear well. He did have two small episodes of nausea and vomiting of clear to greenish fluid. No blood. DIAGNOSTICS I have reviewed the available imaging, operative and pathology reports as described above and reviewed in the EMR. 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 Unfortunately, Mr. Jj is not tolerating his chemotherapy well. They are planning to go the ER again for more IV fluids. I encouraged them to keep their appointment tomorrow for Medical Oncology if he is able. He will try to take Compazine for nausea regularly as the Zofran causes constipation. Heis not sure if he wants to continue chemotherapy. I explained to them Palliative Care as well as Hospice care. I can see Mr. Stew Jj in follow-up visit at any time, but have not scheduled a regular follow-upgiven that he is now receiving systemic therapy and might consider hospice care if he is not tolerating the treatments. Mr. Stew Jj and/or his family know to contact us at any point should any questions or concerns arise. EDUCATION: Ready to learn, no apparent learning barriers were identified; learning preferences include listening. Explained diagnosis and treatment plan; patient expressed understanding of the content. I personally spent 30 minutes in care of the patient today. Time includes both non face to face andface to face patient care. Signed by: Tasneem Grayson M.D. 01/27/2025 4:38 PM CDT Radiation Oncology [facility] [address] [place], [place] [id number] documented in this encounter Plan of Treatment Upcoming Encounters Date Type Department Care Team (Latest Contact Info) Description 01/28/2025 12:20 PM CDT Lab Department of Laboratory Medicine and Pathology, [facility], in [place], [place] [address] [place] [address] German Pierce, PCourtneyACourtney-Wade [address] [place] [phone] 01/28/2025 2:30 PM CDT Infusion Department of Oncology in [place], [place] [address] [place] [phone] German Pierce, GlennAAlfredo [address] [place] [phone] 01/30/2025 4:28 PM CDT Hospital Encounter Post Anesthesia Care Unit in [place], [place] [address] [place] [phone] Quirino Jackson M.D. [address] [place] [phone] 01/30/2025 4:28 PM CDT - 01/30/2025 7:18 PM CDT Surgery [facility] [address] [place] [phone] Quirino Jackson M.D. [address] [place] [phone] INSERTION [place] CHAIN WEIGHT EYELID 02/09/2025 1:45 PM CDT Office Visit Department of Otorhinolaryngology in [place], [place] [address] [place] [phone] Quirino Bobo M.D. [address] [place] [phone] 02/09/2025 3:00 PM CDT [facility] in [place], [place] [address] [place] [phone] Quirino Jackson M.D. [address] [place] [phone] 02/10/2025 11:00 AM CDT Lab Department of Laboratory Medicine and Pathology, [facility], in [place], [place] [address] [place] [phone] German Pierce P.A.-C. [address] [place] [phone] 02/10/2025 1:00 PM CDT Office Visit Department of Oncology in [place], [place] [address] [place] [phone] Rik Aguirre M.D., M.S. [address] [place] [phone] 02/13/2025 9:45 AM CDT Infusion Department of Oncology in [place], [place] [address] [place] [phone] German Pierce P.A.-Wade [address] [place] [phone] 02/19/2025 10:00 AM CDT Lab Department of Laboratory Medicine and Pathology, [facility] in [place], [place] [address] [place] [address] German Pierce P.A.-C. [address] [place] [phone] 02/19/2025 12:00 PM CDT Infusion Department of Oncology in [place], [place] [address] [place] [phone] German Pierce P.A.-C. [address] [place] [phone] 03/03/2025 11:00 AM CDT Lab Department of Laboratory Medicine and Pathology, [facility] in [place], [place] [address] [place] [phone] German Pierce P.A.-C. [address] [place] [phone] 03/03/2025 1:00 PM CDT Office Visit Department of Oncology in [place], [place] [address] [place] [phone] Rik Aguirre M.D., M.S. [address] [place] [phone] 03/04/2025 7:30 AM CDT Infusion Department of Oncology in [place], [place] [address] [place] [address] German Pierce P.A.-C. [address] [place] [phone] 03/11/2025 10:00 AM CDT Lab Department of Laboratory Medicine and Pathology, [facility] in [place], [place] [address] [place] [address] German Pierce P.A.-C. [address] [place] [phone] 03/11/2025 12:00 PM CDT Infusion Department of Oncology in [place], [place] [address] [place] [phone] German Pierce P.A.-C. [address] [place] [phone] 03/24/2025 7:10 AM CDT Lab Department of Laboratory Medicine and Pathology, [facility] in [place], [place] [address] [place] [address] German Pierce P.A.-C. [address] [place] [phone] 03/24/2025 9:20 AM CDT Office Visit Department of Oncology in [place], [place] [address] [place] [phone] Rik Aguirre M.D., M.S. [address] [place] [phone] 03/24/2025 10:15 AM CDT Infusion Department of Oncology in [place], [place] [address] [place] [phone] German Pierce P.A.-C. [address] [place] [phone] 04/01/2025 11:00 AM CDT Lab Department of Laboratory Medicine and Pathology, [facility] in [place], [place] [address] [place] [address] German Pierce P.A.-C. [address] [place] [phone] 04/01/2025 1:00 PM CDT Infusion Department of Oncology in [place], [place] [address] [place] [phone] German Pierce P.A.-C. [address] [place] [phone] Scheduled Procedures Name Priority Associated Diagnoses Date/Ti me INSERTION GOLD WEIGHT EYELID Paralysis Facial 01/30/2025 4:28 PM CDT REPAIR ECTROPION Paralysis Facial 01/30/2025 4:28 PM CDT GRAFT FASCIA ANUEL Paralysis Facial 01/30/2025 4:28 PM CDT Scheduled Referrals Name Type Priority Associated Diagnoses Order Schedule Radiation Oncology office visit (clinic) Outpatient Referral Routine Once for 1 Occurrences starting 01/27/2025 until 01/27/2025 documented as of this encounter Goals Goal [...] documented as of this encounter Care Teams Dozer Operator Relationship Specialty Start Date End Date Elsewhere, Pcp PCP - General Internal Medicine 10/13/22 documented as of this encounter
--- NOTE | 2025-01-27 16:37 | ED.GENADULT ---
HPI - General Adult General Chief complaint: Nausea/Vomiting Stated complaint: Dehydrated Time Seen by Provider: 01/27/25 16:40 History of Present Illness HPI narrative: Pt here for eval of persistent vomiting since chemo tx last Sunday. Chemo for Brain tumor. Also reports bilateral kidney pain, new since Sunday. Hx of constipation , denies diarrhea. Have been trying crackers and Liquid IV. 59-year-old man presenting to the emergency department with concern of vomiting and dehydration. Does have a brain tumor and is receiving chemotherapy. Did have chemotherapy this last week and has been having intermittent vomiting since. Was just being seen I believe by his oncologist in clinic and vomiting started again shortly before arrival in the emergency department. Has not had a fever. Has been having trouble with oral intake. Does have some bilateral flank pain which as they report is thought to be related to his chemotherapy. Is not experiencing dysuria. Is feeling rather weak generally. Noted somewhat low blood pressure on triage initially though on recheck at 106/73. Does have pain in the posterior right had, site of biopsy. This is not new in does have oxycodone available for pain. Would appreciate some pain medication. Was seen in the emergency department during this last week for fluid resuscitation sounds like. Related Data Allergies Allergy/AdvReac Type Severity Reaction Status Date / Time No Known Drug Allergies Allergy Verified 01/27/25 16:23 Review of Systems Status of ROS: Reports: 6 or more systems reviewed and unremarkable except as noted in History and below [facility] Social History Smoking Status: Never smoker How often do you have a drink containing alcohol: never AUDIT-C Alcohol total score: 0 Non-prescribed substance use: denies use Exam Narrative: Exam Narrative: Slim. Voice sounds a little raspy. There is some whitish material in his mouth the staining the right tonsil. Looks to be less plaquing I think consistent with this crackers. Mild erythema the posterior oropharynx. Without lymphadenopathy. Lungs with generalized trace crepitus. He is moving good air. Is not hypoxic in vitals. Does not appear to be experiencing any respiratory difficulty without labored breathing. For heart in regular rate and rhythm. Abdomen is flat soft and nontender. Skin is warm and dry. No extremity edema. Well-perfused. Evidence of cupping across his back. Eye patch over his right eye. No swelling or erythema in the area of pain behind his right ear. Const: Vital Signs, click to edit/add: Vital Signs - 24 hr 01/27/25 16:25 01/27/25 16:48 01/27/25 16:49 Temperature 98.5 F Pulse Rate 68 75 Pulse Rate [Pulse Oximeter] 72 Respiratory Rate 16 18 20 Blood Pressure 106/73 Blood Pressure [Ri ght Upper Arm] 88/59 L Pulse Oximetry 97 98 99 Oxygen Delivery Me thod Room Air 01/27/25 17:00 01/27/25 17:06 01/27/25 17:15 Temperature Pulse Rate 66 67 66 Pulse Rate [Pulse Oximeter] Respiratory Rate 10 L 18 13 Blood Pressure 105/73 Blood Pressure [Ri ght Upper Arm] Pulse Oximetry 98 97 97 Oxygen Delivery Me thod 01/27/25 17:30 01/27/25 17:36 01/27/25 17:45 Temperature Pulse Rate 68 71 71 Pulse Rate [Pulse Oximeter] Respiratory Rate 11 L 28 H Blood Pressure 112/77 Blood Pressure [Ri ght Upper Arm] Pulse Oximetry 98 98 98 Oxygen Delivery Me thod 01/27/25 18:00 01/27/25 18:08 01/27/25 18:15 Temperature Pulse Rate 69 Pulse Rate [Pulse Oximeter] Respiratory Rate 29 H 14 Blood Pressure 113/61 Blood Pressure [Ri ght Upper Arm] Pulse Oximetry 99 Oxygen Delivery Me thod 01/27/25 18:30 01/27/25 18:36 01/27/25 18:45 Temperature Pulse Rate 70 73 72 Pulse Rate [Pulse Oximeter] Respiratory Rate 23 11 L Blood Pressure 128/83 Blood Pressure [Ri ght Upper Arm] Pulse Oximetry 98 98 99 Oxygen Delivery Me thod 01/27/25 19:00 01/27/25 19:06 01/27/25 19:15 Temperature Pulse Rate 77 76 75 Pulse Rate [Pulse Oximeter] Respiratory Rate 18 7 L 0 L Blood Pressure 131/83 Blood Pressure [Ri ght Upper Arm] Pulse Oximetry 97 98 97 Oxygen Delivery Me thod 01/27/25 19:30 01/27/25 19:36 01/27/25 19:45 Temperature Pulse Rate 72 72 70 Pulse Rate [Pulse Oximeter] Respiratory Rate 10 L 7 L 7 L Blood Pressure 121/78 Blood Pressure [Ri ght Upper Arm] Pulse Oximetry 97 98 98 Oxygen Delivery Me thod 01/27/25 20:00 01/27/25 20:06 01/27/25 20:15 Temperature Pulse Rate 69 69 69 Pulse Rate [Pulse Oximeter] Respiratory Rate 10 L 12 5 L Blood Pressure 121/78 Blood Pressure [Ri ght Upper Arm] Pulse Oximetry 98 97 98 Oxygen Delivery Me thod Documenting provider has reviewed patient's vital signs: yes Course Vital Signs Vital signs: Initial Vital Signs Temperature 98.5 F 01/27/25 16:25 Temperature Source Temporal Artery Scan 01/27/25 16:25 Pulse Rate 72 01/27/25 16:25 Pulse Rhythm Regular 01/27/25 16:25 Respiratory Rate 16 01/27/25 16:25 Blood Pressure 88/59 L 01/27/25 16:25 Blood Pressure Mean 68 L 01/27/25 16:25 Blood Pressure Position Sitting 01/27/25 16:25 Pulse Oximetry 97 01/27/25 16:25 Oxygen Delivery Method Room Air 01/27/25 16:25 Vital Signs Temperature 98.5 F 01/27/25 16:25 Pulse Rate 72 01/27/25 16:25 Respiratory Rate 16 01/27/25 16:25 Blood Pressure 88/59 L 01/27/25 16:25 Pulse Oximetry 97 01/27/25 16:25 Oxygen Delivery Method Room Air 01/27/25 16:25 Temperature 98.5 F 01/27/25 16:25 Pulse Rate 69 01/27/25 20:15 Respiratory Rate 5 L 01/27/25 20:15 Blood Pressure 121/78 01/27/25 20:06 Pulse Oximetry 98 01/27/25 20:15 Oxygen Delivery Method Room Air 01/27/25 16:25 Medications Administered Medications: Discontinued Medications Generic Name Dose Route Start Last Admin Trade Name Freq PRN Reason Stop Dose Admin Hydromorphone HCl 0.5 mg 01/27/25 16:53 01/27/25 17:00 Hydromorphone 0.5 Mg/0.5 Ml Inj IVP 01/27/25 16:54 0.5 mg ONCE ONE Administration Sodium Chloride 1,000 mls @ 1,000 mls/hr 01/27/25 16:53 01/27/25 18:30 0.9 % Sodium Chloride 1000 Ml IV 01/27/25 17:52 Infused .Q1H ONE Infusion Lactated Ringer's 1,000 mls @ 1,000 mls/hr 01/27/25 18:13 01/27/25 19:48 Lactated Ringers 1000 Ml IV 01/27/25 19:12 Infused .Q1H ONE Infusion Ketorolac Tromethamine 15 mg 01/27/25 18:48 01/27/25 18:54 Ketorolac 15 Mg/Ml Inj IVP 01/27/25 18:49 15 mg ONCE ONE Administration Ondansetron HCl 4 mg 01/27/25 16:53 01/27/25 17:00 Ondansetron 2 Mg/Ml Inj IVP 01/27/25 16:54 4 mg ONCE ONE Administration Oxycodone/Acetaminophen 2 tab 01/27/25 18:48 01/27/25 18:52 Oxycodone/Apap 5-325 Tablet PO 01/27/25 18:49 2 tab ONCE ONE Administration Medical Decision Making MDM Narrative Medical decision making narrative: Does not sound as though there was any lab work done last few days. Will check for electrolyte stability. Blood cultures. Look for potential source of infection. IV fluid resuscitation. Initial blood pressure as noted was somewhat low but rechecks were improved. Chest x-ray independently reviewed by me looks to be WNL. Did subsequently give pain medication for headache. Does have oxycodone apparently available. Ordered initially for Dilaudid, ketorolac and Zofran and then later in course received Percocet. In total 2 L of crystalloid. Labs are reassuring. Improved on reassessments; improved strength, energy. Requesting departure See patient discharge plan for further discussion It was a pleasure taking care of you. Best wishes going forward. Focus on hydration. Light diet over the next 24 hours or so. Blood cultures are pending here. You will be contacted if they are positive. Medical Records Medical records reviewed: Yes I reviewed the patient's medical records Lab Data Labs: Lab Results 01/27/25 01/27/25 01/27/25 Range/Units 16:40 18:10 18:22 WBC 4.96 (4.50-11.00) K/uL RBC 4.46 (4.30-5.90) m/uL Hgb 12.5 L (13.5-17.5) gm/dL Hct 38.3 (37.0-53.0) % MCV 86 (80-100) fL MCH 28 (26-34) pg MCHC 33 (32-36) gm/dL RDW Coeff of [place] 11.7 (11.5-15.5) % Plt Count 388 (140-440) K/uL Neut % (Auto) 80.2 H (42.0-72.0) % Lymph % (Auto) 8.3 L (20-44) % [place] % (Auto) 9.1 (0.0-11.0) % Eos % (Auto) 1.8 (0.0-7.0) % Baso % (Auto) 0.4 (0.0-3.0) % Neut # (Auto) 4.00 (1.7-7.0) K/uL Lymph # (Auto) 0.40 L (0.90-2.90) K/uL [place] # (Auto) 0.50 (0.00-0.90) K/UL Eos # (Auto) 0.09 (0.00-0.50) K/uL Baso # (Auto) 0.02 (0.00-0.30) K/uL Abs Immat Gran (auto) 0.01 (0.00-0.30) K/uL Imm/Tot Granulo (auto) 0.2 % Sodium 133 L (135-149) mmol/L Potassium 3.7 (3.6-5.1) mmol/L Chloride 95 L (96-114) mmol/L Carbon Dioxide 31 (20-32) mmol/L Anion Gap 7 (7-15) mEq/L BUN 17 (7-30) mg/dL Creatinine 1.2 (0.5-1.5) mg/dL Estimated Creat Clear 61.29 Estimated GFR 71 ml/min Glucose 137 H (60-115) mg/dL Calcium 9.1 (8.4-10.6) mg/dL Total Bilirubin 0.4 (0.1-1.5) mg/dL Direct Bilirubin 0.3 (0.0-0.5) mg/dL AST 47 H (12-35) U/L ALT 76 H (4-50) U/L Alkaline Phosphatase 143 (40-150) U/L C-Reactive Protein 1.7 H (0.5-1.0) mg/dL Total Protein 7.3 (6.0-8.3) g/dL Albumin 4.0 (3.3-5.0) g/dL Urine Color Yellow (Yellow) Urine Appearance Clear (Clear) Urine pH 6.5 (5.0-8.5) Ur Specific [place] 1.020 (1.000-1.030) Urine Protein 2+ A (Negative) Urine Glucose (UA) Trace A (Negative) Urine Ketones Negative (Negative) Urine Blood Negative (Negative) Urine Nitrite Negative (Negative) Urine Bilirubin Negative (Negative) Urine Urobilinogen 1.0 (0.2-1.0) Ur Leukocyte Esterase Negative (Negative) Urine RBC 0-2 (0-2) Urine WBC 0-2 (0-5) Ur Squamous Epith Cells Few (None-Few) Urine Bacteria None (None) SARS-CoV-2 (PCR) Negative SARS-CoV-2 (Negative) Influenza Type A (PCR) Negative PCR FLU A (Negative) Influenza Type B (PCR) Negative PCR FLU B (Negative) RSV (PCR) Negative PCR RSV (Negative) Discharge Plan Discharge Clinical Impression: Vomiting, Dehydration Patient Disposition: Home w/ Parent or Adult Condition: Improved Additional Instructions: It was a pleasure taking care of you. Best wishes going forward. Focus on hydration. Light diet over the next 24 hours or so. Blood cultures are pending here. You will be contacted if they are positive. Follow Up/Referrals: Provider,Not a Local [Non-Staff, Family Practice] Stand Alone Forms: MyHealth Info Instructions
[2025-01-27] MEDS: 0.9 % SODIUM CHLORIDE 1000 ml 1,000 ML IV (16:50)
--- NOTE | 2025-01-27 16:55 | CRLHL7_ITS ---
For Patients: As a result of the Century Cures Act, medical imaging exams and procedure reports are released immediately into your electronic medical record. You may view this report before your referring provider. If you have questions, please contact your health care provider. INDICATION: Congestion on lung exam, vomiting. TECHNIQUE: Chest 1 views. COMPARISON: None. FINDINGS: Cardiovascular and mediastinum: Heart size is normal. Unremarkable mediastinum. Lungs and pleural spaces: Likely mild basilar atelectasis. No definite acute infiltrate. No sign of pleural effusion. No pneumothorax. Bones and soft tissues: No significant findings. IMPRESSION: No definite acute findings. Dictated by Ran Khan MD @ 01/27/2025 5:27:08 PM (Electronically Signed)
[2025-01-27] MEDS: HYDROmorphone 0.5 mg/0.5 ml inj IVP (17:00)
[2025-01-27] MEDS: ONDANSETRON 2 MG/ML inj 4 MG IVP (17:00)
--- OUTSIDE RECORDS SUMMARY | 2025-01-27 17:01 | XMS_ITS | Encounter Summary ---
Author Organization [facility] Address [address] [place] [id number] Care Team Providers Care Electrician Telephone Name Role Phone Elsewhere, Pcp Primary Care Provider Unavailabl e Encounter Details Date Type Department Care Team (Late st Contact Info) Description 01/02/2025 Orders Only Virtual Review in [place], [place] [address] [place] [phone] Alison Zurita Social History Tobacco Use Types Packs/Day Years Used Date Smoking Tobacco: Never Passive Smoke Exposure: Never Smokeless Tobacco: Never Alcohol Use Standard Drinks/Week Comments Not Currently 1 (1 standard drink = 0.6 oz pure alcohol) patient states no alcohol in 6+months [facility] Utilities Answer Date Recorded In the [...] week 08/29/2022 How often do you attend [facility] or adventism services? Patient declined 08/29/2022 Do you belong to any clubs o r organizations such as worship groups, unions, fraternal or athletic groups, or [...] Answer Date Recorded PHQ-2 Score 0 02/13/2019 [facility] - Occupational Stress [...] your living situation today? I have a [facility] place to live 10/28/2024 Education Answer Date Recorded What is the highest level of school you have completed or the highest degree you have received? Associate degree: occupational, technical, or vocational program 08/29/2022 Sex and Gender Information Value Date Recorded Sex Assigned at Male 11/04/2018 9:57 AM FIRE TECHNICIAN Legal Sex Male 4:48 PM FIRE TECHNICIAN Gender Identity Male 11/04/2018 9:57 AM FIRE TECHNICIAN Sexual Orientation Straight 11/04/2018 9: 57 AM FIRE TECHNICIAN documented as of this encounter Plan of Treatment Upcoming Encounters Date Type Department Care Team (Latest Contact Info) Description 01/28/2025 12:20 PM CDT Lab Department of Laboratory Medicine and Pathology, [facility], in [place], [place] [address] [place] [address] German Pierce P.A.-C. [address] [place] [phone] 01/28/2025 2:30 PM CDT Infusion Department of Oncology in [place], [place] [address] [place] [phone] German Pierce P.A.-C. [address] [place] [phone] 01/30/2025 4:28 PM CDT Hospital Encounter Post Anesthesia Care Unit in [place], [place] [address] [place] [phone] Quirino Jackson M.D. [address] [place] [phone] 01/30/2025 4:28 PM CDT - 01/30/2025 7:18 PM CDT Surgery [facility] OR [address] [place] [phone] Quirino Jackson M.D. [address] [place] [phone] INSERTION YOMBA SHOSHONE CHAIN WEIGHT EYELID 02/09/2025 1:45 PM CDT Office Visit Department of Otorhinolaryngology in [place], [place] [address] [place] [phone] Quirino Bobo M.D. [address] [place] [phone] 02/09/2025 3:00 PM CDT [facility] in [place], [place] [address] [place] [phone] Quirino Jackson M.D. [address] [place] [phone] 02/10/2025 11:00 AM CDT Lab Department of Laboratory Medicine and Pathology, [facility], in [place], [place] [address] [place] [phone] German Pierce P.A.-C. [address] [place] [phone] 02/10/2025 1:00 PM CDT Office Visit Department of Oncology in [place], [place] [address] [place] [phone] Rik Aguirre M.D., M.S. [address] [place] [phone] 02/13/2025 9:45 AM CDT Infusion Department of Oncology in [place], [place] [address] [place] [phone] German Pierce P.A.-Wade [address] [place] [phone] 02/19/2025 10:00 AM CDT Lab Department of Laboratory Medicine and Pathology, [facility] in [place], [place] [address] [place] [phone] German Pierce P.A.-C. [address] [place] [phone] 02/19/2025 12:00 PM CDT Infusion Department of Oncology in [place], [place] [address] [place] [phone] German Pierce P.A.-C. [address] [place] [phone] 03/03/2025 11:00 AM CDT Lab Department of Laboratory Medicine and Pathology, [facility] in [place], [place] [address] [place] [phone] German Pierce P.A.-C. [address] [place] [phone] 03/03/2025 1:00 PM CDT Office Visit Department of Oncology in [place], [place] [address] [place] [phone] Rik Aguirre M.D., M.S. [address] [place] [phone] 03/04/2025 7:30 AM CDT Infusion Department of Oncology in [place], [place] [address] [place] [phone] German Pierce P.A.-C. [address] [place] [phone] 03/11/2025 10:00 AM CDT Lab Department of Laboratory Medicine and Pathology, [facility] in [place], [place] [address] [place] [phone] German Pierce P.A.-C. [address] [place] [phone] 03/11/2025 12:00 PM CDT Infusion Department of Oncology in [place], [place] [address] [place] [phone] German Pierce P.A.-C. [address] [place] [phone] 03/24/2025 7:10 AM CDT Lab Department of Laboratory Medicine and Pathology, [facility] in [place], [place] [address] [place] [phone] German Pierce P.A.-C. [address] [place] [phone] 03/24/2025 9:20 AM CDT Office Visit Department of Oncology in [place], [place] [address] [place] [phone] Rik Aguirre M.D., M.S. [address] [place] [phone] 03/24/2025 10:15 AM CDT Infusion Department of Oncology in [place], [place] [address] [place] [phone] German Pierce P.A.-Wade [address] [place] [phone] 04/01/2025 11:00 AM CDT Lab Department of Laboratory Medicine and Pathology, [facility] in [address] [phone] German Pierce P.A.-Wade [address] [place] [phone] 04/01/2025 1:00 PM CDT Infusion Department of Oncology in [address] [phone] German Pierce P.A.-CCourtney [address] [place] [phone] Scheduled Procedures Name Priority Associated Diagnoses Date/Ti me INSERTION GOLD WEIGHT EYELID Paralysis Facial 01/30/2025 4:28 PM CDT REPAIR ECTROPION Paralysis Facial 01/30/2025 4:28 PM CDT GRAFT FASCIA ANUEL Paralysis Facial 01/30/2025 4:28 PM CDT documented as of this encounter Visit Diagnoses Not on filedocumented in this encounter Additional Health Concerns Assessment Noted Time PHQ-9 Depression Total Score: 5 12/20/19 19 2:49 PM CDT documented as of this encounter Care Teams Electrician Telephone Relationship Specialty Start Date End Date Elsewhere, Pcp PCP - General Internal Medicine 10/13/22 documented as of this encounter
--- OUTSIDE RECORDS SUMMARY | 2025-01-27 17:01 | XMS_ITS | Encounter Summary ---
Author Organization [facility] Address [address] [place] [id number] Care Team Providers Care Smoke Eater Name Role Phone Elsewhere, Pcp Primary Care Provider Unavailabl e Encounter Details Date Type Department Care Team (Late st Contact Info) Description 01/05/2025 Orders Only Preoperative Evaluation Center in [place], [place] [address] [place] [phone] Lakeshia Ng, PANCHITO, C.N.P. [address] [place] [phone] Preanesthetic Medical Exam (Primary Dx); Anemia Social History Tobacco Use Types Packs/Day Years Used Date Smoking Tobacco: Never Passive Smoke Exposure: Never Smokeless Tobacco: Never Alcohol Use Standard Drinks/Week Comments Not Currently 1 (1 standard drink = 0.6 oz pure alcohol) patient states no alcohol in 6+months [facility] Utilities Answer Date Recorded In [...] you attend [facility] or mandaen services? Patient declined 08/29/2022 Do you belong to any clubs o r organizations such as faith groups, unions, fraternal or athletic groups, or [...] Answer Date Recorded PHQ-2 Score 0 02/13/2019 [facility] Occupat ional Health - Occupational [...] your living situation today? I have a [facility] place to live 10/28/2024 Education Answer Date Recorded What is the highest level of school you have completed or the highest degree you have received? Associate degree: occupational, technical, or vocational program 08/29/2022 Sex and Gender Information Value Date Recorded Sex Assigned at Male 11/04/2018 9:57 AM ACCREDITED FARM MANAGER Legal Sex Male 4:48 PM ACCREDITED FARM MANAGER Gender Identity Male 11/04/2018 9:57 AM ACCREDITED FARM MANAGER Sexual Orientation Straight 11/04/2018 9: 57 AM ACCREDITED FARM MANAGER documented as of this encounter Plan of Treatment Upcoming Encounters Date Type Department Care Team (Latest Contact Info) Description 01/28/2025 12:20 PM CDT Lab Department of Laboratory Medicine and Pathology, [facility], in [place], [place] [address] [place] [address] German Pierce P.A.-C. [address] [place] [phone] 01/28/2025 2:30 PM CDT Infusion Department of Oncology in [place], [place] [address] [place] [phone] German Pierce P.A.-C. [address] [place] [phone] 01/30/2025 4:28 PM CDT Hospital Encounter Post Anesthesia Care Unit in [place], [place] [address] [place] [phone] Quirino Jackson M.D. [address] [place] [phone] 01/30/2025 4:28 PM CDT - 01/30/2025 7:18 PM CDT Surgery [facility] MAIN OR [address] [place] [phone] Quirino Jackson M.D. [address] [place] [phone] INSERTION PRAIRIE BAND CHAIN WEIGHT EYELID 02/09/2025 1:45 PM CDT Office Visit Department of Otorhinolaryngology in [place], [place] [address] [place] [phone] Quirino Bobo M.D. [address] [place] [phone] 02/09/2025 3:00 PM CDT Office Visit [facility] in [place], [place] [address] [place] [phone] Quirino Jackson M.D. [address] [place] [phone] 02/10/2025 11:00 AM CDT Lab Department of Laboratory Medicine and Pathology, [facility], in [place], [place] [address] [place] [phone] German Pierce P.A.-CCourtney [address] [place] [phone] 02/10/2025 1:00 PM CDT Office Visit Department of Oncology in [place], [place] [address] [place] [phone] Rik Aguirre M.D., M.S. [address] [place] [phone] 02/13/2025 9:45 AM CDT Infusion Department of Oncology in [place], [place] [address] [place] [phone] German Pierce P.A.-CCourtney [address] [place] [phone] 02/19/2025 10:00 AM CDT Lab Department of Laboratory Medicine and Pathology, [facility], in [address] [phone] German Pierce P.A.-CCourtney [address] [place] [phone] 02/19/2025 12:00 PM CDT Infusion Department of Oncology in [place], [place] [address] [place] [phone] German Pierce P.A.-CCourtney [address] [place] [phone] 03/03/2025 11:00 AM CDT Lab Department of Laboratory Medicine and Pathology, [facility] in [place], [place] [address] [place] [address] German Pierce P.A.-C. [address] [place] [phone] 03/03/2025 1:00 PM CDT Office Visit Department of Oncology in [place], [place] [address] [place] [address] Rik Aguirre M.D., M.S. [address] [place] [phone] 03/04/2025 7:30 AM CDT Infusion Department of Oncology in [place], [place] [address] [place] [address] German Pierce P.A.-C. [address] [place] [phone] 03/11/2025 10:00 AM CDT Lab Department of Laboratory Medicine and Pathology, [facility] in [place], [place] [address] [place] [address] German Pierce P.A.-C. [address] [place] [phone] 03/11/2025 12:00 PM CDT Infusion Department of Oncology in [place], [place] [address] [place] [phone] German Pierce P.A.-C. [address] [place] [phone] 03/24/2025 7:10 AM CDT Lab Department of Laboratory Medicine and Pathology, [facility], in [place], [place] [address] [place] [address] German Pierce P.A.-Wade [address] [place] [phone] 03/24/2025 9:20 AM CDT Office Visit Department of Oncology in [place], [place] [address] [place] [phone] Rik Aguirre M.D., M.S. [address] [place] [phone] 03/24/2025 10:15 AM CDT Infusion Department of Oncology in [place], [place] [address] [place] [phone] German Pierce P.A.-Wade [address] [place] [phone] 04/01/2025 11:00 AM CDT Lab Department of Laboratory Medicine and Pathology, [facility] in [place], [place] [address] [place] [phone] German Pierce P.A.-C. [address] [place] [phone] 04/01/2025 1:00 PM CDT Infusion Department of Oncology in [place], [place] [address] [place] [phone] German Pierce P.A.-Wade [address] [place] [phone] Scheduled Procedures Name Priority Associated Diagnoses Date/Ti [...] as of this encounter Visit Diagnoses Diagnosis Preanesthetic Medical Exam- Primary Anemia Paralysis Facial documented in this encounter Additional Health Concerns Active Problems Noted Date Diagnosed Date Autogenerated Problem 01/05/2025 Assessment Noted Time PHQ-9 Depression Total Score: 5 12/20/19 19 2:49 PM CDT documented as of this encounter Care Teams Smoke Eater Relationship Specialty Start Date End Date Elsewhere, Pcp PCP - General Internal Medicine 10/13/22 documented as of this encounter
--- OUTSIDE RECORDS SUMMARY | 2025-01-27 17:02 | XMS_ITS | Encounter Summary ---
Author Organization [facility] Address [address] [place] [address] Care Team Providers Care Counselor Aid Name Role Phone Elsewhere, Pcp Primary Care Provider Unavailabl e Reason for Visit * Reason Onset Date Comments Symptom Assessment 01/21/2025 Nausea Encounter Details Date Type Department Care Team (Latest Contact Info) Description 01/21/2025 Clinical Communication Department of Oncology in [place], [place] [address] [place] [address] Juma Alvarez, R.N. 200 [place] [address] Symptom Assessment (Nausea/) Social History Tobacco Use Types Packs/Day Years Used Date Smoking Tobacco: Never Passive Smoke Exposure: Never Smokeless Tobacco: Never Alcohol Use Standard Drinks/Week Comments Not Currently 1 (1 standard drink = 0.6 oz pure alcohol) patient states no alcohol in 6+months [facility] Utilities Answer Date Recorded In the past 12 months has th e electric, gas, oil, or water company [...] How often do you attend chur or anglican services? Patient declined 08/29/2022 Do you belong [...] Answer Date Recorded PHQ-2 Score 0 02/13/2019 [facility] [place] of Occupat ional Health - Occupational Stress [...] your living situation today? I have a [facility] place to live 10/28/2024 Education Answer Date Recorded What is the highest level of school you have completed or the highest degree you have received? 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 - 01/21/2025 3:40 PM CDT SUBJECTIVE CHIEF COMPLAINT / REASON FOR CALL Symptom Assessment (Nausea/) History: Nasopharyngeal undifferentiated EBV-associated carcinoma, status post two [...] Now rising EBV DNA concerning for disease. ASSESSMENT Mr. Jj completed his C1D1 infusion of cisplatin, gemcitabine and toripalimab. His son Michele was with him today and speaks Montserratian well. His son called in saying that Mr. Jj is feeling very nauseated like he did before with past chemo. He received IV dexamethasone, emend and aloxi today as pre-meds. He has not picked up his oral chemo prescriptions yet and claimed to the chemo RN that he didn't k now he had any to order picker. At first it made it sound like he had new symptoms, but then recanted and said has ongoing symptoms that are baseline such as blurry vision (not double vision), and some baseline pain on the right side (not sure of location- maybe it was right headache?). He told his son he is feeling like he is going to black out by which he means dizzy when i clarified. He is not having darkening vision. He is not throwing up. He feels like he might throw up. I asked if Mr. Jj ate and drank this afternoon and his son said he has. Chemo RN was concerned early that his appetite is poor and maybe he is not drinking well enough based on their conversation via language line on the Ipad. PLAN Re-routed 4 anti-emetic prescriptions to [facility] which is on street level- lobby level one building over from [facility]/chemo. Son is going to pick them up now. I instructed Mr. Jj to take the bedtime medication Olanzapine. Also can take the prochlorperazine (wrote #1 on this RX). Thedex starts tomorrow and the ondansetron would be a duplicate of his IV aloxi that is already on board so those are not helpful right now. If these nausea meds do not help within 60 minutes of taking them to improve the symptom and he is miserable or is vomiting uncontrollably, then they can call back and speak with on-call or consider going to ER if there are significant symptoms. RN to call and check in on Mr. Jj in 1-2 days to make sure he is taking nausea medications appropriately. If concerns during follow up for dehydration can direct him to pursue IV fluids via local provider, or come to [place] for IV fluids. I did not check what was the best # to call him at. [phone] ([phone]) is his main # and also listed under the son Michele. Disposition/Recommendation: order picker nausea RX's and take as directed . Information/Education: patient/caller able to teach back. Caller agreeable to plan of care: yes. The following references were used: nursing clinical judgement. documented in this encounter Plan of Treatment Upcoming Encounters Date Type Department Care Team (Latest Contact Info) Description 01/28/2025 12:20 PM CDT Lab Department of Laboratory Medicine and Pathology, [facility], in [place], [place] [address] [place] [phone] German Pierce, P.A.-CCourtney [address] [place] [phone] 01/28/2025 2:30 PM CDT Infusion Department of Oncology in [place], [place] [address] [place] [address] German Pierce, P.A.-CCourtney [address] [place] [phone] 01/30/2025 4:28 PM CDT Hospital Encounter Post Anesthesia Care Unit in [place], [place] [address] [place] [phone] Quirino Jackson M.D. [address] [place] [phone] 01/30/2025 4:28 PM CDT - 01/30/2025 7:18 PM CDT Surgery [facility] MAIN OR [address] [place] [phone] Quirino Jackson M.D. [address] [place] [phone] INSERTION NORTHWAY CHAIN WEIGHT EYELID 02/09/2025 1:45 PM CDT Office Visit Department of Otorhinolaryngology in [place], [place] [address] [place] [phone] Quirino Bobo M.D. [address] [place] [phone] 02/09/2025 3:00 PM CDT Office Visit [facility] in [address] [phone] Quirino Jackson M.D. [address] [place] [phone] 02/10/2025 11:00 AM CDT Lab Department of Laboratory Medicine and Pathology, [facility], in [address] [phone] German Pierce, P.A.-CCourtney [address] [place] [phone] 02/10/2025 1:00 PM CDT Office Visit Department of Oncology in [address] [phone] Rik Aguirre M.D., M.S. [address] [place] [phone] 02/13/2025 9:45 AM CDT Infusion Department of Oncology in [place], [place] [address] [place] [phone] German Pierce, P.A.-CCourtney [address] [place] [phone] 02/19/2025 10:00 AM CDT Lab Department of Laboratory Medicine and Pathology, [facility] in [place], [place] [address] [place] [phone] German Pierce P.A.-C. [address] [place] [phone] 02/19/2025 12:00 PM CDT Infusion Department of Oncology in [place], [place] [address] [place] [phone] German Pierce P.A.-C. [address] [place] [phone] 03/03/2025 11:00 AM CDT Lab Department of Laboratory Medicine and Pathology, [facility] in [place], [place] [address] [place] [phone] German Pierce P.A.-C. [address] [place] [phone] 03/03/2025 1:00 PM CDT Office Visit Department of Oncology in [place], [place] [address] [place] [phone] Rik Aguirre M.D., M.S. [address] [place] [phone] 03/04/2025 7:30 AM CDT Infusion Department of Oncology in [place], [place] [address] [place] [phone] German Pierce P.A.-C. [address] [place] [phone] 03/11/2025 10:00 AM CDT Lab Department of Laboratory Medicine and Pathology, [facility] in [place], [place] [address] [place] [phone] German Pierce P.A.-C. [address] [place] [phone] 03/11/2025 12:00 PM CDT Infusion Department of Oncology in [place], [place] [address] [place] [phone] German Pierce P.A.-C. [address] [place] [phone] 03/24/2025 7:10 AM CDT Lab Department of Laboratory Medicine and Pathology, [facility] in [place], [place] [address] [place] [phone] German Pierce P.A.-C. [address] [place] [phone] 03/24/2025 9:20 AM CDT Office Visit Department of Oncology in [place], [place] [address] [place] [phone] Rik Aguirre M.D., M.S. [address] [place] [phone] 03/24/2025 10:15 AM CDT Infusion Department of Oncology in [place], [place] [address] [place] [phone] German Pierce P.A.-C. [address] [place] [phone] 04/01/2025 11:00 AM CDT Lab Department of Laboratory Medicine and Pathology, [facility], in [place], [place] [address] [place] [phone] German Pierce P.A.-C. [address] [place] [phone] 04/01/2025 1:00 PM CDT Infusion Department of Oncology in [place], [place] [address] [place] [phone] German Pierce P.A.-C. 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
--- OUTSIDE RECORDS SUMMARY | 2025-01-27 17:02 | XMS_ITS | Encounter Summary ---
Author Organization [facility] Address [address] [place] [id number] Care Team Providers Care Log Operations Coordinator Name Role Phone Elsewhere, Pcp Primary Care Provider Unavailabl e Reason for Referral * Outpatient (Routine) - Authorized Specialty Diagnoses / Procedures Referred By Luz wu Referred To Contact Otorhinolaryngology Kallie Gordon P.A.-C. [address] [place] [phone] Phone: tel: fax: Quirino Jackson M.D. [address] [place] [phone] Phone: tel: fax: Referral ID Status Reason Start Date Expiration Date V isits Requested Visits Authorized [id number] Authorized 01/05/2025 07/07/2026 1 1 Scheduling Instructions 1-2 wk postop. Override on 02/09/[address] Bobo postop Reason for Visit * Reason Onset Date Comments Schedule surgery 01/05/2025 Encounter Details Date Type Department Care Team (Latest Contact Info) Description 01/05/2025 Clinical Communication Department of Otorhinolaryngology in [place], [place] [address] [place] [address] Quirino Jackson M.D. 200 [place] [address] Schedule surgery Social History Tobacco Use Types Packs/Day Years Used Date Smoking Tobacco: Never Passive Smoke Exposure: Never Smokeless Tobacco: Never Alcohol Use Standard Drinks/Week Comments Not Currently 1 (1 standard drink = 0.6 oz pure alcohol) patient states no alcohol in 6+months [facility] Utilities Answer Date Recorded In the past 12 months has e [employer], gas, oil, or water [employer] threatened to shut off services in your [...] often do you attend chur ch or restorationist services? Patient declined 08/29/2022 Do you belong to any clubs o r organizations such as christianity groups, unions, fraternal or athletic groups, or [...] Answer Date Recorded PHQ-2 Score 0 02/13/2019 [facility] - Occupational Stress Questionnaire Answer Date [...] your living situation today? I have a [facility] place to live 10/28/2024 Education Answer Date Recorded What is the highest level of school you have completed or the highest degree you have received? 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 Ordered: 1-2 wk PO documented in this encounter Plan of Treatment Upcoming Encounters Date Type Department Care Team (Latest Contact Info) Description 01/28/2025 12:20 PM CDT Lab Department of Laboratory Medicine and Pathology, [facility], in [place], [place] [address] [place] [address] German Pierce P.A.-C. [address] [place] [address] 01/28/2025 2:30 PM CDT Infusion Department of Oncology in [place], [place] [address] [place] [address] German Pierce P.A.-C. [address] [place] [address] 01/30/2025 4:28 PM CDT Hospital Encounter Post Anesthesia Care Unit in [place], [place] [address] [place] [phone] Quirino Jackson M.D. [address] [place] [phone] 01/30/2025 4:28 PM CDT - 01/30/2025 7:18 PM CDT Surgery [facility] [address] [place] [phone] Quirino Jackson M.D. [address] [place] [phone] INSERTION MI'KMAQ CHAIN WEIGHT EYELID 02/09/2025 1:45 PM CDT Office Visit Department of Otorhinolaryngology in [place], [place] [address] [place] [phone] Quirino Bobo M.D. [address] [place] [phone] 02/09/2025 3:00 PM CDT [facility] in [place], [place] [address] [place] [phone] Quirino Jackson M.D. [address] [place] [phone] 02/10/2025 11:00 AM CDT Lab Department of Laboratory Medicine and Pathology, [facility], in [place], [place] [address] [place] [phone] German Pierce P.A.-C. [address] [place] [phone] 02/10/2025 1:00 PM CDT Office Visit Department of Oncology in [place], [place] [address] [place] [phone] Rik Aguirre M.D., M.S. [address] [place] [phone] 02/13/2025 9:45 AM CDT Infusion Department of Oncology in [place], [place] [address] [place] [phone] German Pierce P.A.-C. [address] [place] [phone] 02/19/2025 10:00 AM CDT Lab Department of Laboratory Medicine and Pathology, [facility] in [place], [place] [address] [place] [address] German Pierce P.A.-C. [address] [place] [phone] 02/19/2025 12:00 PM CDT Infusion Department of Oncology in [place], [place] [address] [place] [phone] German Pierce P.A.-C. [address] [place] [phone] 03/03/2025 11:00 AM CDT Lab Department of Laboratory Medicine and Pathology, [facility] in [place], [place] [address] [place] [phone] German Pierce P.A.-C. [address] [place] [phone] 03/03/2025 1:00 PM CDT Office Visit Department of Oncology in [place], [place] [address] [place] [phone] Rik Aguirre M.D., M.S. [address] [place] [phone] 03/04/2025 7:30 AM CDT Infusion Department of Oncology in [place], [place] [address] [place] [address] German Pierce P.A.-C. [address] [place] [phone] 03/11/2025 10:00 AM CDT Lab Department of Laboratory Medicine and Pathology, [facility] in [place], [place] [address] [place] [phone] German Pierce P.A.-C. [address] [place] [phone] 03/11/2025 12:00 PM CDT Infusion Department of Oncology in [place], [place] [address] [place] [phone] German Pierce P.A.-C. [address] [place] [phone] 03/24/2025 7:10 AM CDT Lab Department of Laboratory Medicine and Pathology, [facility] in [place], [place] [address] [place] [address] German Pierce P.A.-C. [address] [place] [phone] 03/24/2025 9:20 AM CDT Office Visit Department of Oncology in [place], [place] [address] [place] [phone] Rik Aguirre M.D., M.S. [address] [place] [phone] 03/24/2025 10:15 AM CDT Infusion Department of Oncology in [place], [place] [address] [place] [address] German Pierce P.A.-C. [address] [place] [phone] 04/01/2025 11:00 AM CDT Lab Department of Laboratory Medicine and Pathology, [facility] in [place], [place] [address] [place] [address] German Pierce P.A.-C. [address] [place] [phone] 04/01/2025 1:00 PM CDT Infusion Department of Oncology in [place], [place] [address] [place] [phone] German Pierce P.A.-C. [address] [place] [phone] Scheduled Procedures Name Priority Associated Diagnoses Date/Ti me INSERTION GOLD WEIGHT EYELID Paralysis Facial 01/30/2025 4:28 PM CDT REPAIR ECTROPION Paralysis Facial 01/30/2025 4:28 PM CDT GRAFT FASCIA ANUEL Paralysis Facial 01/30/2025 4:28 PM CDT Scheduled Referrals Name Type Priority Associated Diagnoses Order Schedule Otorhinolaryngology Post Op (clinic) Outpatient Referral Routine Expected: 02/09/2025, Expires: 04/06/2026 documented as of this encounter Goals [...] documented as of this encounter Care Teams Log Operations Coordinator Relationship Specialty Start Date End Date Elsewhere, Pcp PCP - General Internal Medicine 10/13/22 documented as of this encounter
--- OUTSIDE RECORDS SUMMARY | 2025-01-27 17:02 | XMS_ITS | Clinical Summary ---
Author Organization [facility] Address [address] [place] [address] Care Team Providers Care English And Reading Instructor Name Role Phone Unavailable Primary Care Provider Unavailabl e Allergies No known active allergies Medications acetaminophen (TYLENOL) 500 mg oral tablet Take 1,000 mg by mouth every 8 (eight) hours as needed. Active senna (SENOKOT) 8.6 mg oral tablet TAKE 1 TABLET BY MNUT DAILY, MAY INCREASE UP TO 4 TABLETS TWICE A DAY IF NEEDED FOR CONSTIPATION 0 9 Active lidocaine-prilo beti (EMLA) 2.5-2.5 % Top cream cream as needed (venous access port). 9 Active LORazepam (ATIVAN) 0.5 mg oral tablet Take 1 tablet by mouth every 4 (four) hours as needed (nausea). 9 Active prochlorperazin e (COMPAZINE) 10 mg oral tablet Take 10 mg by mouth every 6 (six) hours as needed (nausea). 9 Active oxyCODONE, immediate release, (ROXICODONE) 5 mg oral tablet Take 1-2 tablets (5-10 mg) by mouth every 4 (four) hours as needed. 10 tablet 9 Active bisacodyl (DULCOLAX) 5 mg oral delayed released tablet Take 1-3 tablets (5-15 mg) by mouth once a day as needed for Constipation. 15 tablet 9 Active famotidine (PEPCID) 20 mg oral tablet Take 1 tablet (20 mg) by mouth twice a day. 60 tablet 9 Active polyethylene glycol (MIRALAX) 17 gram oral packet Take 17 g by mouth once daily. Mix each dose in 4-8 ounces of liquid as directed. 14 packet 9 Active ondansetron (ZOFRAN) 4 mg oral ODT Dissolve 2 tablets (8 mg) in mouth every 12 (twelve) hours as needed for nausea. 10 tablet 5 Active HYDROcodone-adenike taminophen (NORCO) 5-325 mg oral tablet Take 1 tablet by mouth every 6 (six) hours as needed for pain. 10 tablet 5 Active Active Problems Problem Noted Date Diagnosed Date Syncope 10/05/2018 Cervical pain (neck) 12/11/2016 Constipation, unspecified constipation type 04/10 Encounters Date Type Department Care Team Description 01/25/2025 11:27 AM CDT - 01/25/2025 4:35 PM CDT Emergency [facility] Emergency Department [address] [place] [address] Bridger Ferrell MD Discharge Disposition: Returning Home/Self Care 01/25/2025 Travel 12/01/2024 2:50 AM CDT - 12/01/2024 6:22 AM CDT Emergency [facility] Emergency Department [address] [place] [address] Elieser Stafford MD Discharge Disposition: Returning Home/Self Care 12/01/2024 Travel from Last 3 Months Immunizations Immunization Administration Dates Next Due Influenza recombinant (FluBl ok Quadrivalent PF) 05/26/2016 MMR 11/03/1991 Td adult absorbed PF (2 Lf) 11/03/1991, 1,07/27/1989 Tdap 03/02/2015 Family History Medical History Relation Comments Stroke Father Asthma Mother Relation Status Comments Father Mother Social History Tobacco Use Types Packs/Day Years [...] on file Sexual Orientation Not on file Last Filed Vital Signs Vital Sign Reading Time Taken Comments Blood Pressure 117/73 01/25/2025 4:15 PM CDT Pulse 64 01/25/2025 4:15 PM CDT Temperature 36.3 C (97.3 F) 01/25/2025 11:26 AM CDT Respiratory Rate 14 01/25/2025 4:15 PM CDT Oxygen Saturation 97% 01/25/2025 4:15 PM CDT Inhaled Oxygen Concentration - - Weight 65.3 kg (144 lb) 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 Height 167.6 cm (5' 6) 01/25/2025 11:26 AM CDT Body Mass Index 23.24 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 Plan of Treatment Health Maintenance Due Date Last Done Comments Colonoscopy 1965 Hepatitis C Screening 1965 Anxiety Screening (CALISTA-2) 1968 Depression Assessment (PHQ-2) 1966 Pneumococcal 50+ Years (1 of 1 - PCV) 2017 Zoster Vaccine (1 of 2) 2017 Lipid Screening 05/26/2021 05/26/2016 COVID-19 Vaccine (2 - season) 2024 07/11/2021 Adult Tetanus Booster 03/02/2025 03/02/2015 , 11/03/1991, 03/31/1991, Additional history exists Influenza Vaccine (Season Ended) 2025 07/11/2021, 05/26/2016 Yearly Review of HCD 12/01/2025 12/01/2024, 08/28/2019, 10/05/2018, Additional history exists RSV Vaccines (1 - 1-dose 75+ series) 2042 Meningococcal B Vaccine Aged Out No l onger eligible based on patient's age to complete this topic Medical Devices Implanted Type Area Paint Department Supervisor Device Identifier Shelf Expiration Date Model / Serial / Lot Ports - [id number] Implanted:Qty: 1 on 10/01/2018 by Segundo Díaz MD at [facility] [employer] / / [id number] Procedures Procedure Name Priority Date/Time Associated Diagnosis Comments URINE MACROSCOPIC (POCT) DIP Routine 01/25/2025 2:20 PM CDT MICROSCOPIC UA ONLY STAT 01/25/2025 2 :06 PM CDT ELECTROCARDIOGRAM STAT 01/25/2025 12: 06 PM CDT EXTRA TUBE PST STAT 01/25/2025 11:40 AM CDT EXTRA TUBE-SST (LAB USE ONLY) STAT 01/25/2025 11:40 AM CDT EXTRA TUBE-EDTA STAT 01/25/2025 11:40 AM CDT EXTRA TUBE-COAG STAT 01/25/2025 11:40 AM CDT EXTRA TUBE-BLOOD BANK STAT 01/25/2025 11:40 AM CDT LIVER PROFILE STAT Add-on 01/25/2025 11:40 AM CDT BASIC METAB PROFILE STAT 01/25/2025 1 1:40 AM CDT CBC/DIFF STAT 01/25/2025 11:40 AM CDT EXTRA TUBE-COAG STAT 12/01/2024 3:29 AM CDT EXTRA TUBE-BLOOD BANK STAT 12/01/2024 3:29 AM CDT LACTIC ACID STAT 12/01/2024 3:24 AM CDT GASES VENOUS PERIPHERAL STAT 12/02/19 3:24 AM CDT LIPASE STAT 12/01/2024 3:24 AM CDT LIVER PROFILE STAT 12/01/2024 3:24 AM CDT BASIC METAB PROFILE STAT 12/01/2024 3 :24 AM CDT CBC/DIFF STAT 12/01/2024 3:24 AM CDT LIPID PROFILE CASCADE Routine 05/26/2016 9:24 AM CDT Annual physical exam from Last 3 Months or Most Recently Relevant to Health Maintenance Results * Urine Macroscopic (POCT) Dip (01/25/2025 2:20 PM CDT) PH URINE 6.0 4.5 - 8.0 01/25/2025 2:[address] [facility] SP.GRAVITY, UA 1.015 1.015 - 1.025 01/25/2025 2:[address] [facility] Glucose, UA Negative Negative mg/dL 01/25/2025 2:[address] [facility] Ketone, UA Negative Negative mg/dL 01/25/2025 2:[address] [facility] Bilirubin, UA Negative Negative 01/25/2025 2:[address] [facility] UROBILINOGEN, UA 0.2 0.2 - 1.0 EU/dL 01/25/2025 2:[address] [facility] PROTEIN, UA Negative Negative, Trace mg/dL 01/25/2025 2:[address] [facility] OCCULT BLOOD, UA Negative Negative, Trace, TRACE-LYSED, TRACE-INTACT 01/25/2025 2:[address] [facility] WBC ESTERASE, UA Negative Negative, Trace 01/25/2025 2:[address] [facility] NITRITE, UA Negative Negative 01/25/2025 2:[address] [facility] Urine 01/25/2025 2:20 PM CDT 01/25/2025 2:18 PM CDT us Bridger Ferrell MD LAB POINT OF CARE TEST RESULT S Final Result [facility] [address] [id number] * Microscopic UA Only (01/25/2025 2:06 PM CDT) RBC-UA Occasional None Seen, Occasional , 1-2 /hpf 01/25/2025 2:[address] [facility] WBC-UA Occasional None Seen, Occasional , 1-4 /hpf 01/25/2025 2:[address] [facility] Urine URINE SPECIMEN / Unknown 01/25/2025 2:06 PM CDT 01/25/2025 2:19 PM CDT us Bridger Ferrell MD URINE ORDERABLE Final Result 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: [id number] : 1965 Requested By: BRIDGER FERRELL MD Order Number: [id number] Reading MD: Antoinette Kevin MD Measurements Intervals [place] Rate: 61 P: 70 [place]: 210 QRS: [...] EKG ORDERABLE Final Result Performing Organization Address City/[facility]/ZIP Co de Phone Number [facility] [address] [place] [address] * Extra Tube-EDTA (Lab Use Only) (01/25/2025 11:40 AM CDT) Blood 01/25/2025 11:4 0 AM CDT 01/25/2025 11:49 AM CDT us Bridger Ferrell MD HEMATOLOGY ORDERABLE Final Re sult Performing Organization Address [facility] de Phone Number [facility] [address] [address] * Extra Tube-Coag (Lab Use Only) (01/25/2025 11:40 AM CDT) Only the most recent of2 resultswithin the time period is included. Blood 01/25/2025 11:4 0 AM CDT 01/25/2025 11:48 AM CDT us Bridger Ferrell MD COAGULATION ORDERABLE Final R esult Performing Organization Address [facility] de Phone Number [facility] [address] [place] [address] * Extra Tube-Blood Bank (Lab Use Only) (01/25/2025 11:40 AM CDT) Only the most recent of2 resultswithin the time period is included. Blood 01/25/2025 11:4 0 AM CDT 01/25/2025 11:47 AM CDT us Bridger Ferrell MD BLOOD BANK ORDERABLE Final Re sult Performing Organization Address [facility] de Phone Number [facility] [address] [place] [address] * Extra Tube-SST (Lab Use Only) (01/25/2025 11:40 AM CDT) Blood 01/25/2025 11:4 0 AM CDT 01/25/2025 11:50 AM CDT us Bridger Ferrell MD CHEMISTRY ORDERABLE Final Res ult Performing Organization Address [facility] Co de Phone Number [facility] [address] [place] [address] * (ABNORMAL) Liver Profile (01/25/2025 11:40 AM CDT) Only the most recent of2 resultswithin the time period is included. ALT 100(H) 7 - 40 U/L 01/25/2025 12:[address] [facility] Alkaline Phosphatase 217(H) 46 - 116 U/L 01/25/2025 12:22 PM [facility] AST (SGOT) 29 13 - 40 U/L 01/25/2025 12:22 PM [facility] Protein Total 6.8 5.7 - 8.2 g/dL 01/25/2025 12:22 PM [facility] Albumin 3.4 3.4 - 5.0 g/dL 01/25/2025 12:22 PM [facility] Bilirubin-Direct 0.22 <0.40 mg/dL 01/25/2025 12:22 PM [facility] Bilirubin-Total 0.80 0.30 - 1.20 mg/dL 01/25/2025 12:22 PM [facility] Blood 01/25/2025 11:4 0 AM CDT 01/25/2025 11:50 AM CDT Bridger Ferrell MD CHEMISTRY ORDERABLE Final Res ult Performing Organization Address [facility] Co de Phone Number [facility] [address] [place] [address] * (ABNORMAL) Basic Metabolic Profile (01/25/2025 11:40 AM CDT) Only the most recent of2 resultswithin the time period is included. Sodium 134(L) 136 - 145 mmol/L 01/25/2025 12:[address] [facility] Potassium 3.2(L) 3.4 - 5.1 mmol/L 01/25/2025 12:17 PM [facility] Chloride 100 98 - 108 mmol/L 01/25/2025 12:17 PM [facility] Carbon Dioxide 27 20 - 31 mmol/L 01/25/2025 12:17 PM [facility] BUN (Urea Nitro) 24(H) 9 - 23 mg/dL 01/25/2025 12:17 PM [facility] Creatinine 1.20(H) 0.73 - 1.18 mg/dL 01/25/2025 12:17 PM [facility] Est GFR (CKD-EPI) >60.00 >60.00 mL/min/1. 73m2 01/25/2025 12:17 PM [facility] Comment:Calculation based on the Chronic Kidney Disease Epidemiology Collaboration (CKD-EPI) equation refit without adjustment for race. Glucose 118(H) 74 - 106 mg/dL 01/25/2025 12:17 PM [facility] Calcium, Serum 10.0 8.7 - 10.4 mg/dL 01/25/2025 12:17 PM [facility] Anion Gap 7.0 0.0 - 15.0 mmol/L 01/25/2025 12:17 PM [facility] Blood 01/25/2025 11:4 0 AM CDT 01/25/2025 11:49 AM CDT us Bridger Ferrell MD CHEMISTRY ORDERABLE Final Res ult Performing Organization Address City/State/[facility] Co de Phone Number [facility] [address] [place] [address] * (ABNORMAL) CBC w/diff (01/25/2025 11:40 AM CDT) Only the most recent of2 resultswithin the time period is included. WBC 13.2(H) 4.3 - 10.8 K/uL 01/25/2025 11:[address] [facility] RBC 4.72 4.60 - 6.20 M/uL 01/25/2025 11:56 AM [facility] Hemoglobin 13.3(L) 14.0 - 18.0 gm/dL 01/25/2025 11:56 AM [facility] Hematocrit 40.7 40.0 - 54.0 % 01/25/2025 11:56 AM [facility] MCV 86 80 - 100 fL 01/25/2025 11:56 AM [facility] MCH 28 27 - 33 pg 01/25/2025 11:56 AM [facility] MCHC 33 33 - 36 gm/dL 01/25/2025 11:56 AM [facility] RDW 12.1 11.5 - 14.5 % 01/25/2025 11:56 AM [facility] Platelet Count 473(H) 150 - 400 K/UL 01/25/2025 11:56 AM [facility] MPV 8.5 6.5 - 12 fL 01/25/2025 11:56 AM [facility] PMN % 89.2 % 01/25/2025 11:56 AM [facility] IG % 0.5 <=1.0 % 01/25/2025 11:56 AM [facility] Lymphocyte % 8.2 % 01/25/2025 11:56 AM [facility] Monocyte % 1.0 % 01/25/2025 11:56 AM [facility] Eosinophil % 0.6 % 01/25/2025 11:56 AM [facility] Basophil % 0.5 % 01/25/2025 11:56 AM [facility] PMN Absolute 11.74(H) 1.80 - 7.80 K/uL 01/25/2025 11:56 AM [facility] Lymphocyte Absolute 1.08 1.00 - 4.00 K/uL 01/25/2025 11:56 AM [facility] Monocyte Absolute 0.13 0.00 - 1.00 K/uL 01/25/2025 11:56 AM [facility] Eosinophil Absolute 0.08 0.00 - 0.45 K/uL 01/25/2025 11:56 AM [facility] Basophil Absolute 0.06 0.00 - 0.20 K/uL 01/25/2025 11:[address] [facility] Nucl RBC % 0.0 0.0 - 0.0 /100 WBC 01/25/2025 11:[address] [facility] Nucl RBC Absolute 0.00 0.00 - 0.00 K/uL 01/25/2025 11:[address] [facility] Blood 01/25/2025 11:4 0 AM CDT 01/25/2025 11:49 AM CDT Bridger Ferrell MD HEMATOLOGY ORDERABLE Final Re sult Performing Organization Address [facility]/ZIP Co de Phone Number [facility] [address] [place] [address] * Extra Tube PST (Lab Use Only) (01/25/2025 11:40 AM CDT) Blood 01/25/2025 11:4 0 AM CDT 01/25/2025 11:49 AM CDT Bridger Ferrell MD CHEMISTRY ORDERABLE Final Res ult Performing Organization Address [facility] Co de Phone Number [facility] [address] [place] [address] * Lactic Acid (12/01/2024 3:24 AM CDT) Lactic Acid 1.6 0.7 - 2.1 mmol/L 12/01/2024 3:[address] [facility] Blood 12/01/2024 3:24 AM CDT 12/01/2024 3:31 AM CDT Elieser Stafford MD CHEMISTRY ORDERABLE Final Result Performing Organization Address City/[facility]/ZIP Co de Phone Number [facility] [address] [place] [address] * Gases Venous Peripheral (12/01/2024 3:24 AM CDT) pH Venous 7.36 7.30 - 7.40 12/01/2024 3:[address] [facility] O2 Sat Venous 64.6 60.0 - 80.0 % 12/01/2024 3:[address] [facility] pO2 Venous 36 35 - 45 mm Hg 12/01/2024 3:[address] [facility] Base Excess Venous 0.4 -3.0 - 2.0 mmol/L 12/01/2024 3:[address] [facility] PCO2 Venous 49 36 - 51 mm Hg 12/01/2024 3:[address] [facility] HCO3 Venous 27 22 - 29 mmol/L 12/01/2024 3:[address] [facility] Blood 12/01/2024 3:24 AM CDT 12/01/2024 3:31 AM CDT Elieser Stafford MD CHEMISTRY ORDERABLE Final Result Performing Organization Address City/[facility]/ZIP Co de Phone Number [facility] [address] [place] [address] * Lipase (12/01/2024 3:24 AM CDT) [facility] Lipase 46 12 - 53 U/L 12/01/2024 3:[address] [facility] Blood 12/01/2024 3:24 AM CDT 12/01/2024 3:34 AM CDT Elieser Stafford MD CHEMISTRY ORDERABLE Final Result [facility] [address] [place] [address] * (ABNORMAL) LIPID PROFILE CASCADE (05/26/2016 9:24 AM CDT) [facility] Specimen Type Fasting 05/26/2016 3:02 PM [facility] Cholesterol 190 <200 mg/dL 05/26/2016 3:02 PM T [facility] Triglycerides 91 <150 mg/dL 05/26/2016 3:02 PM [facility] LDL Chol, Calc 122(H) <100 mg/dL 05/26/2016 3:02 PM [facility] HDL Cholesterol 50 >40 mg/dL 6 3:02 PM [facility] Chol/HDL Ratio 3.8 0.0 - 4.9 05/26/2016 3:02 PM [facility] Blood Venipuncture / Unknown 05/26/2016 9:24 AM T 05/26/2016 9:24 AM T [facility] - 05/26/2016 3:[address] [facility] LDL CHOLESTEROL REFERENCE RANGES: (FOR PATIENTS W/O HEART DISEASE) <100 mg/dL = Optimal 100-129 mg/dL = Near/Above Optimal 130-159 mg/dL = Borderline High 160-189 mg/dL = High >/= 190 mg/dL = Very High us Mustapha Nash MD CHEMISTRY ORDERABLE Final Resu lt [facility] [address] [facility] [place] [address] from Last 3 Months or Most Recently Relevant to Health Maintenance Insurance [facility] MEDICARE PART A & B Advance Directives For more information, please contact: [phone] * Full Code (Latest Code Status on File) Date Activated Date Inactivated Comments 10/05/2018 4:41 PM 10/06/2018 5:09 PM Question Answer Comments How was code status determined? Patient
--- OUTSIDE RECORDS SUMMARY | 2025-01-27 17:02 | XMS_ITS | Referral Summary ---
Author Organization [facility] Address [address] [place] [address] Care Team Providers Care Pyrotechnist Name Role Phone Unavailable Primary Care Provider Unavailabl e Encounters Date Type Department Care Team Description 01/25/2025 Travel 01/25/2025 11:27 AM CDT - 01/25/2025 4:35 PM CDT Emergency [facility] Emergency Department [address] [place] [address] Bridger Ferrell MD Discharge Disposition: Returning Home/Self Care 12/01/2024 Travel 12/01/2024 2:50 AM CDT - 12/01/2024 6:22 AM CDT Emergency [facility] Emergency Department [address] [place] [address] Elieser Stafford MD Discharge Disposition: Returning Home/Self Care from Last 3 Months Allergies No known active allergies Medications acetaminophen (TYLENOL) 500 mg oral tablet Take 1,000 mg by mouth every 8 (eight) hours as needed. 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 Height 167.6 cm (5' 6) 01/25/2025 11:26 AM CDT Body Mass Index 23.24 08/28/2019 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 Plan of Treatment Not on file Medical Devices Implanted Type Area Xray Tech Device Identifier Shelf Expiration Date Model / Serial / Lot Ports - [id number] Implanted:Qty: 1 on 10/01/2018 by Segundo Díaz MD at [facility] [employer] Access / / [id number] Procedures Procedure Name Priority Date/Time Associated Diagnosis [...] 4.5 - 8.0 01/25/2025 2:18 PM CDT [facility] SP.GRAVITY, UA 1.015 1.015 - 1.025 01/25/2025 2:18 PM CDT [facility] Glucose, UA Negative Negative mg/dL 01/25/2025 2:18 PM CDT [facility] Ketone, UA Negative Negative mg/dL 01/25/2025 2:18 PM CDT [facility] Bilirubin, UA Negative Negative 01/25/2025 2:18 PM CDT [facility] UROBILINOGEN, UA 0.2 0.2 - 1.0 EU/dL 01/25/2025 2:18 PM CDT [facility] PROTEIN, UA Negative Negative, Trace mg/dL 01/25/2025 2:18 PM CDT [facility] OCCULT BLOOD, UA Negative Negative, Trace, TRACE-LYSED, TRACE-INTACT 01/25/2025 2:18 PM CDT [facility] WBC ESTERASE, UA Negative Negative, Trace 01/25/2025 2:18 PM CDT [facility] NITRITE, UA Negative Negative 01/25/2025 2:18 PM CDT [facility] Urine 01/25/2025 2:20 PM CDT 01/25/2025 2:18 PM CDT us Bridger Ferrell MD LAB POINT OF CARE TEST RESULT S Final Result Performing Organization Address City/[facility]/ZIP Co de Phone Number [facility] [address] [place] [address] * Microscopic UA Only (01/25/2025 2:06 PM CDT) RBC-UA Occasional None Seen, Occasional , 1-2 /hpf 01/25/2025 2:45 PM CDT [facility] WBC-UA Occasional None Seen, Occasional , 1-4 /hpf 01/25/2025 2:45 PM CDT [facility] Urine URINE SPECIMEN / Unknown 01/25/2025 2:06 PM CDT 01/25/2025 2:19 PM CDT us Bridger Ferrell MD URINE ORDERABLE Final Result [facility] [address] [place] [address] * Electrocardiogram (01/25/2025 12:06 PM CDT) EKG [facility]VI DANG Comment: [facility] Test Date: 2025-01-25 Pat Name: RUSTY PUTNAM Department: ED Room: ED25 Gender: M Orthotist Prosthetist: [id number] : [id number] Requested By: BRIDGER FERRELL MD Order Number: [id number] Reading MD: Antoinette Kevin MD Measurements Intervals [place] Rate: 61 P: 70 NV: 210 QRS: 73 QRSD: 89 T: 60 QT: 382 QTc: 385 Interpretive Statements SINUS RHYTHM WITH FIRST DEGREE AV BLOCK EARLY REPOLARIZATION ABNORMAL ECG Compared to ECG 10/05/2018 09:59:45 Early repolarization now present Electronically Signed On 01-25-2025 13:43:34 CDT by Antoinette Kevin MD 01/25/2025 12:0 6 PM CDT us Bridger Ferrell MD EKG ORDERABLE Final Result Performing Organization Address [facility] Phone Number [facility] [address] [place] [address] * Extra Tube-EDTA (Lab Use Only) (01/25/2025 11:40 AM CDT) Blood 01/25/2025 11:4 0 AM CDT 01/25/2025 11:49 AM CDT us Bridger Ferrell MD HEMATOLOGY ORDERABLE Final Re sult Performing Organization Address [facility] de Phone Number [facility] [address] [place] [address] * Extra Tube-Coag (Lab Use Only) (01/25/2025 11:40 AM CDT) Only the most recent of2 resultswithin the time period is included. Blood 01/25/2025 11:4 0 AM CDT 01/25/2025 11:48 AM CDT us Bridger Ferrell MD COAGULATION ORDERABLE Final R esult [facility] [address] [place] [address] * Extra Tube-Blood Bank (Lab Use Only) (01/25/2025 11:40 AM CDT) Only the most recent of2 resultswithin the time period is included. Blood 01/25/2025 11:4 0 AM CDT 01/25/2025 11:47 AM CDT us Bridger Ferrell MD BLOOD BANK ORDERABLE Final Re sult Performing Organization Address [facility] Co de Phone Number [facility] [address] [place] [address] * Extra Tube-SST (Lab Use Only) (01/25/2025 11:40 AM CDT) Blood 01/25/2025 11:4 0 AM CDT 01/25/2025 11:50 AM CDT us Bridger Ferrell MD CHEMISTRY ORDERABLE Final Res ult Performing Organization Address [facility] de Phone Number [facility] [place] [address] * (ABNORMAL) Liver Profile (01/25/2025 11:40 AM CDT) Only the most recent of2 resultswithin the time period is included. ALT 100(H) 7 - 40 U/L 01/25/2025 12:22 PM CDT [facility] Alkaline Phosphatase 217(H) 46 - 116 U/L 01/25/2025 12:22 PM CDT [facility] AST (SGOT) 29 13 - 40 U/L 01/25/2025 12:22 PM CDT [facility] Protein Total 6.8 5.7 - 8.2 g/dL 01/25/2025 12:22 PM CDT [facility] Albumin 3.4 3.4 - 5.0 g/dL 01/25/2025 12:22 PM CDT [facility] Bilirubin-Direct 0.22 <0.40 mg/dL 01/25/2025 12:22 PM [facility] Bilirubin-Total 0.80 0.30 - 1.20 mg/dL 01/25/2025 12:22 PM [facility] Blood 01/25/2025 11:4 0 AM CDT 01/25/2025 11:50 AM CDT us Bridger Ferrell MD CHEMISTRY ORDERABLE Final Res ult [facility] [address] [place] [address] * (ABNORMAL) Basic Metabolic Profile (01/25/2025 11:40 AM CDT) Only the most recent of2 resultswithin the time period is included. Sodium 134(L) 136 - 145 mmol/L 01/25/2025 12:17 PM [facility] Potassium 3.2(L) 3.4 - 5.1 mmol/L 01/25/2025 12:17 PM [facility] Chloride 100 98 - 108 mmol/L 01/25/2025 12:17 PM [facility] Carbon Dioxide 27 20 - 31 mmol/L 01/25/2025 12:17 PM [facility] BUN (Urea Nitro) 24(H) 9 - 23 mg/dL 01/25/2025 12:17 PM [facility] Creatinine 1.20(H) 0.73 - 1.18 mg/dL 01/25/2025 12:17 PM [facility] Est GFR (CKD-EPI) >60.00 >60.00 mL/min/1. 73m2 01/25/2025 12:17 PM [facility] Comment:Calculation based on the Chronic Kidney Disease Epidemiology Collaboration (CKD-EPI) equation refit without adjustment for race. Glucose 118(H) 74 - 106 mg/dL 01/25/2025 12:17 PM [facility] Calcium, Serum 10.0 8.7 - 10.4 mg/dL 01/25/2025 12:17 PM [facility] Anion Gap 7.0 0.0 - 15.0 mmol/L 01/25/2025 12:17 PM [facility] Blood 01/25/2025 11:4 0 AM CDT 01/25/2025 11:49 AM CDT us Bridger Ferrell MD CHEMISTRY ORDERABLE Final Res ult [facility] [address] [place] [address] * (ABNORMAL) CBC w/diff (01/25/2025 11:40 AM CDT) Only the most recent of2 resultswithin the time period is included. WBC 13.2(H) 4.3 - 10.8 K/uL 01/25/2025 11:56 AM [facility] RBC 4.72 4.60 - 6.20 M/uL 01/25/2025 11:56 AM [facility] Hemoglobin 13.3(L) 14.0 - 18.0 gm/dL 01/25/2025 11:56 AM [facility] Hematocrit 40.7 40.0 - 54.0 % 01/25/2025 11:56 AM [facility] MCV 86 80 - 100 fL 01/25/2025 11:56 AM [facility] MCH 28 27 - 33 pg 01/25/2025 11:56 AM [facility] MCHC 33 33 - 36 gm/dL 01/25/2025 11:56 AM [facility] RDW 12.1 11.5 - 14.5 % 01/25/2025 11:56 AM [facility] Platelet Count 473(H) 150 - 400 K/UL 01/25/2025 11:56 AM [facility] MPV 8.5 6.5 - 12 fL 01/25/2025 11:56 AM [facility] PMN % 89.2 % 01/25/2025 11:56 AM [facility] IG % 0.5 <=1.0 % 01/25/2025 11:56 AM [facility] Lymphocyte % 8.2 % 01/25/2025 11:56 AM [facility] Monocyte % 1.0 % 01/25/2025 11:56 AM [facility] Eosinophil % 0.6 % 01/25/2025 11:56 AM [facility] Basophil % 0.5 % 01/25/2025 11:56 AM [facility] PMN Absolute 11.74(H) 1.80 - 7.80 K/uL 01/25/2025 11:56 AM [facility] Lymphocyte Absolute 1.08 1.00 - 4.00 K/uL 01/25/2025 11:56 AM [facility] Monocyte Absolute 0.13 0.00 - 1.00 K/uL 01/25/2025 11:56 AM [facility] Eosinophil Absolute 0.08 0.00 - 0.45 K/uL 01/25/2025 11:56 AM [facility] Basophil Absolute 0.06 0.00 - 0.20 K/uL 01/25/2025 11:56 AM [facility] Nucl RBC % 0.0 0.0 - 0.0 /100 WBC 01/25/2025 11:56 AM [facility] Nucl RBC Absolute 0.00 0.00 - 0.00 K/uL 01/25/2025 11:56 AM [facility] Blood 01/25/2025 11:4 0 AM CDT 01/25/2025 11:49 AM CDT us Bridger Ferrell MD HEMATOLOGY ORDERABLE Final Re sult Performing Organization Address City/State/[facility] Co de Phone Number [facility] [address] [place] [address] * Extra Tube PST (Lab Use Only) (01/25/2025 11:40 AM CDT) Blood 01/25/2025 11:4 0 AM CDT 01/25/2025 11:49 AM CDT us Bridger Ferrell MD CHEMISTRY ORDERABLE Final Res ult Performing Organization Address City/[facility]/ZIP Co de Phone Number [facility] [address] [place] [address] * Lactic Acid (12/01/2024 3:24 AM CDT) Lactic Acid 1.6 0.7 - 2.1 mmol/L 12/01/2024 3:34 AM CDT [facility] Blood 12/01/2024 3:24 AM CDT 12/01/2024 3:31 AM CDT us Eleiser Stafford MD CHEMISTRY ORDERABLE Final Result Performing Organization Address [facility] Co de Phone Number [facility] [address] [place] [address] * Gases Venous Peripheral (12/01/2024 3:24 AM CDT) pH Venous 7.36 7.30 - 7.40 12/01/2024 3:33 AM CDT [facility] O2 Sat Venous 64.6 60.0 - 80.0 % 12/01/2024 3:33 AM CDT [facility] pO2 Venous 36 35 - 45 mm Hg 12/01/2024 3:33 AM CDT [facility] Base Excess Venous 0.4 -3.0 - 2.0 mmol/L 12/01/2024 3:33 AM CDT [facility] PCO2 Venous 49 36 - 51 mm Hg 12/01/2024 3:33 AM CDT [facility] HCO3 Venous 27 22 - 29 mmol/L 12/01/2024 3:33 AM CDT [facility] Blood 12/01/2024 3:24 AM CDT 12/01/2024 3:31 AM CDT us Elieser Stafford MD CHEMISTRY ORDERABLE Final Result Performing Organization Address City/[facility]/ZIP Co de Phone Number [facility] [address] [place] [address] * Lipase (12/01/2024 3:24 AM CDT) Lipase 46 12 - 53 U/L 12/01/2024 3:59 AM CDT [facility] Blood 12/01/2024 3:24 AM CDT 12/01/2024 3:34 AM CDT us Elieser Stafford MD CHEMISTRY ORDERABLE Final Result Performing Organization Address [facility]/ZIP Co de Phone Number [facility] [address] [place] [address] * (ABNORMAL) LIPID PROFILE CASCADE (05/26/2016 9:24 AM CDT) Pathologist [facility] Specimen Type Fasting 05/26/2016 3:02 PM T [facility] Cholesterol 190 <200 mg/dL 05/26/2016 3:02 PM T [facility] Triglycerides 91 <150 mg/dL 05/26/2016 3:02 PM T [facility] LDL Chol, Calc 122(H) <100 mg/dL 05/26/2016 3:02 PM T [facility] HDL Cholesterol 50 >40 mg/dL 6 3:02 PM T [facility] Chol/HDL Ratio 3.8 0.0 - 4.9 05/26/2016 3:02 PM T [facility] Blood Venipuncture / Unknown 05/26/2016 9:24 AM CDT 05/26/2016 9:24 AM CDT [facility] - 05/26/2016 3:02 PM CDT LDL CHOLESTEROL REFERENCE RANGES: (FOR PATIENTS W/O HEART DISEASE) <100 mg/dL = Optimal 100-129 mg/dL = Near/Above Optimal 130-159 mg/dL = Borderline High 160-189 mg/dL = High >/= 190 mg/dL = Very High us Mustapha Nash MD CHEMISTRY ORDERABLE Final Resu lt [facility] [address] [place] [address] from Last 3 Months or Most Recently Relevant to Health Maintenance Insurance [facility] MEDIC[facility] PART A & B Advance Directives For more information, please contact: [phone] * Full Code (Latest Code Status on File) Date Activated Date Inactivated Comments 10/05/2018 4:41 PM 10/06/2018 5:09 PM Question Answer Comments How was code status determined? Patient
--- OUTSIDE RECORDS SUMMARY | 2025-01-27 17:02 | XMS_ITS | Encounter Summary ---
Author Organization [facility] Address [address] [place] [address] Care Team Providers Care Boat Ride Operator Name Role Phone Unavailable Primary Care Provider Unavailabl e Encounter Details Date Type Department Care Team (Latest Contact Info) Description 01/25/2025 Travel Social History Tobacco Use Types Packs/Day Years [...] on file documented as of this encounter Plan of Treatment Not on file documented as of this encounter Visit Diagnoses Not on filedocumented in this encounter
--- OUTSIDE RECORDS SUMMARY | 2025-01-27 17:03 | XMS_ITS | Clinical Summary ---
Author Organization [place] Address [facility] 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 Grayson 12/01/2016 Other Reported a several month history of headache. In February underwent and MRI of the brain. 08/23/2018 Biopsy/Pathology While in [facility], underwent CT temporal bone (symptoms of right ear pain) which showed a right sided nasopharyngeal mass. 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 A subsequent CT neck confirmed the nasopharyngeal mass and prominent right sided jugular nodes. 09/18/2018 Other Seen by ENT provider locally who ordered imaging including an MRI of the head and PET/CT. The MRI showed the right sided nasopharyngeal mass (with leftward extension) with intracranial extension, encasement of the carotid artery, and likely perineural invasion (right vagus and glossopharyngeal nerve). By outside notes, PET/CT showed the nasopharyngeal mass and slightly avid level II LN in the right neck considered suspicious. Consultations in Radiation and Medical Oncology. Upfront chemotherapy recommended. 10/03/2018 - 11/14/2018 Chemotherapy Commence with cisplatin/docetaxel/5FUx2 cycles 11/25/2018 - 01/10/2019 Radiation Therapy Proton therapy delivered with 7000 cGy (RBE=1.1)/35 fractions with weekly cisplatin. 11/25/2018 - 01/10/2019 Chemotherapy CISplatin Weekly ( with Radiation ) ( Head & Neck ) Start Date: 11/25/2018 04/22/2019 Other MRI face shows continued decrease in size and enhancement of the infiltrative invasive right-sided nasopharyngeal carcinoma since 11/15/2018 indicating interval response to treatment. 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 He does have persistent fatigue, mouth dryness, and increased right-sided tinnitus. He was educated on the drinking extra water, use of Biotene, and use of a humidifier to help with mouth dryness. He was educated on the use of Ginseng supplementation for cancer-related fatigue, including where to purchase. He was provided with a printed handout of information. He will continue to follow with his dentist every six months and use fluoride trays as directed. The patient will have a follow-up appointment with Medical Oncology in [place] in 3 months. We will also schedule a return visit here at that time Constipation, unspecified constipation type 04/10 Resolved Problems Problem Noted Date Diagnosed Date Resolved Date Chest pain 10/11/2018 08/27/2019 Cervical pain (neck) 12/13/2017 019 Encounters Date Type Department Care Team Description 11/03/[address] [phone] Antoinette Champagne DO verbal orders from Last 3 Months Immunizations Immunization Administration Dates Next Due DTaP, Unspecified 03/02/2015 Influenza (prior to 2023) 05/26/2016 MMR (MMRII) 11/03/1991 Td (Adult), Adsorbed 11/03/1991,03/31/1991,07/27 Family History Medical History Relation Comments Cerebrovascular Disease Father Asthma Mother Coronary Artery Disease No family hx of Diabetes No family hx of Hypertension No family hx of Relation Status Comments Father Mother Social History Tobacco Use Types Packs/Day Years Used Date Smoking Tobacco: Never Smokeless Tobacco: Never Tobacco Cessation:Counseling Given: No PHQ-2 Answer Date Recorded PHQ-2 Score 0 09/18/2018 Sex and Gender Information Value Date Recorded Sex Assigned at Not on file Legal Sex Male 3:51 PM CDT Gender Identity Not on file Sexual Orientation Not on file Last Filed Vital Signs Vital Sign Reading Time Taken Comments Blood Pressure 125/84 08/27/2019 9:25 AM COMBINATION OPERATOR Pulse 70 08/27/2019 9:25 AM COMBINATION OPERATOR Temperature 36.4 C (97.5 F) 08/27/2019 9:25 AM COMBINATION OPERATOR Respiratory Rate 20 08/27/2019 9:25 AM COMBINATION OPERATOR Oxygen Saturation 100% 08/27/2019 9:25 AM COMBINATION OPERATOR Inhaled Oxygen Concentration - - Weight 63.5 kg (140 lb) 08/27/2019 9:25 AM COMBINATION OPERATOR Height 165 cm (5' 4.96) 08/27/2019 9:25 AM COMBINATION OPERATOR Body Mass Index 23.33 08/27/2019 9:25 AM COMBINATION OPERATOR Plan of Treatment Not on file Care Teams Infrastructure Software Engineer Relationship Specialty Start Date End Date Nik Cleveland MD [address] [address] Otolaryngology 04/11/17
--- OUTSIDE RECORDS SUMMARY | 2025-01-27 17:03 | XMS_ITS | Encounter Summary ---
Author Organization [facility] Address [address] [place] [address] Care Team Providers Care Senior Energy Analyst Name Role Phone Elsewhere, Pcp Primary Care Provider Unavailabl e Encounter Details Date Type Department Care Team (Late st Contact Info) Description 01/20/2025 Orders Only Department of Oncology in [place], [place] [address] [place] [phone] German Pierce, PZane-Wade [address] [place] [phone] Social History Tobacco Use Types Packs/Day Years Used Date Smoking Tobacco: Never Passive Smoke Exposure: Never Smokeless Tobacco: Never Alcohol Use Standard Drinks/Week Comments Not Currently 1 (1 standard drink = 0.6 oz pure alcohol) patient states no alcohol in 6+months [facility] Utilities Answer Date Recorded In the past 12 months has [facility] [place], gas, oil, or water [employer] threatened to shut off services in your [...] week 08/29/2022 How often do you attend [facility] or hinduism services? Patient declined 08/29/2022 Do you belong [...] Recorded PHQ-2 Score 0 02/13/2019 [facility] of Occupat ional Health - [...] your living situation today? I have a [facility] place to live 10/28/2024 Education Answer Date Recorded What is the highest level of school you have completed or the highest degree you have received? Associate degree: occupational, technical, or vocational program 08/29/2022 Sex and Gender Information Value Date Recorded Sex Assigned at Male 11/04/2018 9:57 AM HAIRSPRING STUDDER Legal Sex Male 4:48 PM HAIRSPRING STUDDER Gender Identity Male 11/04/2018 9:57 AM HAIRSPRING STUDDER Sexual Orientation Straight 11/04/2018 9: 57 AM HAIRSPRING STUDDER documented as of this encounter Plan of Treatment Upcoming Encounters Date Type Department Care Team (Latest Contact Info) Description 01/28/2025 12:20 PM CDT Lab Department of Laboratory Medicine and Pathology, [facility], in [place], [place] [address] [place] [address] German Pierce P.A.-C. [address] [place] [phone] 01/28/2025 2:30 PM CDT Infusion Department of Oncology in [place], [place] [address] [place] [phone] German Pierce P.A.-C. [address] [place] [phone] 01/30/2025 4:28 PM CDT Hospital Encounter Post Anesthesia Care Unit in [place], [place] [address] [place] [phone] Quirino Jackson M.D. [address] [place] [phone] 01/30/2025 4:28 PM CDT - 01/30/2025 7:18 PM CDT Surgery RST ROMB MAIN OR [address] [place] [phone] Quirino Jackson M.D. [address] [place] [phone] INSERTION [place] CHAIN WEIGHT EYELID 02/09/2025 1:45 PM CDT Office Visit Department of Otorhinolaryngology in [place], [place] [address] [place] [phone] Quirino Bobo M.D. [address] [place] [phone] 02/09/2025 3:00 PM CDT Office Visit [facility] in [place], [place] [address] [place] [phone] Quirino Jackson M.D. [address] [place] [phone] 02/10/2025 11:00 AM CDT Lab Department of Laboratory Medicine and Pathology, [facility] in [place], [place] [address] [place] [phone] German Pierce P.A.-CCourtney [address] [place] [phone] 02/10/2025 1:00 PM CDT Office Visit Department of Oncology in [place], [place] [address] [place] [phone] Rik Aguirre M.D., M.S. [address] [place] [phone] 02/13/2025 9:45 AM CDT Infusion Department of Oncology in [place], [place] [address] [place] [phone] German Pierce P.A.-CCourtney [address] [place] [phone] 02/19/2025 10:00 AM CDT Lab Department of Laboratory Medicine and Pathology, [facility] in [place], [place] [address] [place] [phone] German Pierce P.A.-Wade [address] [place] [phone] 02/19/2025 12:00 PM CDT Infusion Department of Oncology in [place], [place] [address] [place] [phone] German Pierce P.A.-Wade [address] [place] [phone] 03/03/2025 11:00 AM CDT Lab Department of Laboratory Medicine and Pathology, [facility], in [place], [place] [address] [place] [phone] German Pierce P.A.-C. [address] [place] [phone] 03/03/2025 1:00 PM CDT Office Visit Department of Oncology in [place], [place] [address] [place] [phone] Rik Aguirre M.D., M.S. [address] [place] [phone] 03/04/2025 7:30 AM CDT Infusion Department of Oncology in [place], [place] [address] [place] [phone] German Pierce P.A.-C. [address] [place] [phone] 03/11/2025 10:00 AM CDT Lab Department of Laboratory Medicine and Pathology, [place], [place] [address] [place] [phone] German Pierce P.A.-C. [address] [place] [phone] 03/11/2025 12:00 PM CDT Infusion Department of Oncology in [place], [place] [address] [place] [phone] German Pierce P.A.-C. [address] [place] [phone] 03/24/2025 7:10 AM CDT Lab Department of Laboratory Medicine and Pathology, [facility] in [place], [place] [address] [place] [phone] FaGerman Linn P.A.-Wade [address] [place] [phone] 03/24/2025 9:20 AM CDT Office Visit Department of Oncology in [place], [place] [address] [place] [phone] Rik Aguirre M.D., M.S. [address] [place] [phone] 03/24/2025 10:15 AM CDT Infusion Department of Oncology in [place], [place] [address] [place] [phone] German Pierce P.A.-Wade [address] [place] [phone] 04/01/2025 11:00 AM CDT Lab Department of Laboratory Medicine and Pathology, [facility] in [place], [place] [address] [place] [phone] German Pierce P.A.-Wade [address] [place] [phone] 04/01/2025 1:00 PM CDT Infusion Department of Oncology in [place], [place] [address] [place] [phone] German Pierce P.A.-Wade [address] [place] [phone] Scheduled Procedures Name Priority Associated Diagnoses Date/Ti [...] documented as of this encounter Care Teams Senior Energy Analyst Relationship Specialty Start Date End Date Elsewhere, Pcp PCP - General Internal Medicine 10/13/22 documented as of this encounter
--- OUTSIDE RECORDS SUMMARY | 2025-01-27 17:03 | XMS_ITS | Encounter Summary ---
Author Organization [facility] Address [address] [place] [address] Care Team Providers Care Electric Deicer Assembler Name Role Phone Elsewhere, Pcp Primary Care Provider Unavailabl e Encounter Details Date Type Department Care Team (Late st Contact Info) Description 01/13/2025 Clinical Communication Department of Oncology in [place], [place] [address] [place] [phone] German Pierce P.A.-Wade [address] [place] [phone] Social History Tobacco Use Types Packs/Day Years Used Date Smoking Tobacco: Never Passive Smoke Exposure: Never Smokeless Tobacco: Never Alcohol Use Standard Drinks/Week Comments Not Currently 1 (1 standard drink = 0.6 oz pure alcohol) patient states no alcohol in 6+months [facility] Utilities Answer Date Recorded In the past 12 months has [facility] [employer], gas, oil, or water [employer] threatened to shut off services in your [...] week 08/29/2022 How often do you attend [facility] or congregation services? Patient declined 08/29/2022 Do you belong to any clubs o r organizations such as evangelical groups, unions, fraternal or athletic groups, or [...] Answer Date Recorded PHQ-2 Score 0 02/13/2019 [facility] of Occupat ional Health - Occupational [...] your living situation today? I have a [facility] place to live 10/28/2024 Education Answer Date Recorded What is the highest level of school you have completed or the highest degree you have received? Associate degree: occupational, technical, or vocational program 08/29/2022 Sex and Gender Information Value Date Recorded Sex Assigned at Male 11/04/2018 9:57 AM ENVIRONMENTAL SERVICES COORDINATOR Legal Sex Male 4:48 PM ENVIRONMENTAL SERVICES COORDINATOR Gender Identity Male 11/04/2018 9:57 AM ENVIRONMENTAL SERVICES COORDINATOR Sexual Orientation Straight 11/04/2018 9: 57 AM ENVIRONMENTAL SERVICES COORDINATOR documented as of this encounter Plan of Treatment Upcoming Encounters Date Type Department Care Team (Latest Contact Info) Description 01/28/2025 12:20 PM CDT Lab Department of Laboratory Medicine and Pathology, [facility], in [place], [place] [address] [place] [address] German Pierce P.A.-C. [address] [place] [phone] 01/28/2025 2:30 PM CDT Infusion Department of Oncology in [place], [place] [address] [place] [phone] German Pierce P.A.-C. [address] [place] [phone] 01/30/2025 4:28 PM CDT Hospital Encounter Post Anesthesia Care Unit in [place], [place] [address] [place] [phone] Quirino Jackson M.D. [address] [place] [phone] 01/30/2025 4:28 PM CDT - 01/30/2025 7:18 PM CDT Surgery RST ROMB MAIN OR [address] [place] [address] [phone] Quirino Jackson M.D. [address] [place] [phone] INSERTION [place] CHAIN WEIGHT EYELID 02/09/2025 1:45 PM CDT Office Visit Department of Otorhinolaryngology in [place], [place] [address] [place] [phone] Quirino Bobo M.D. [address] [place] [phone] 02/09/2025 3:00 PM CDT Office Visit [facility] in [place], [place] [address] [place] [phone] Quirino Jackson M.D. [address] [place] [phone] 02/10/2025 11:00 AM CDT Lab Department of Laboratory Medicine and Pathology, [facility] in [place], [place] [address] [place] [phone] German Pierce P.A.-CCourtney [address] [place] [phone] 02/10/2025 1:00 PM CDT Office Visit Department of Oncology in [place], [place] [address] [place] [phone] Rik Aguirre M.D., M.S. [address] [place] [phone] 02/13/2025 9:45 AM CDT Infusion Department of Oncology in [place], [place] [address] [place] [phone] German Pierce P.A.-CCourtney [address] [place] [phone] 02/19/2025 10:00 AM CDT Lab Department of Laboratory Medicine and Pathology, [facility] in [place], [place] [address] [place] [phone] German Pierce P.A.-Wade [address] [place] [phone] 02/19/2025 12:00 PM CDT Infusion Department of Oncology in [place], [place] [address] [place] [phone] German Pierce P.A.-Wade [address] [place] [phone] 03/03/2025 11:00 AM CDT Lab Department of Laboratory Medicine and Pathology, [facility], in [place], [place] [address] [place] [phone] German Pierce P.A.-C. [address] [place] [phone] 03/03/2025 1:00 PM CDT Office Visit Department of Oncology in [place], [place] [address] [place] [phone] Rik Aguirre M.D., M.S. [address] [place] [phone] 03/04/2025 7:30 AM CDT Infusion Department of Oncology in [place], [place] [address] [place] [phone] German Piecre P.A.-C. [address] [place] [phone] 03/11/2025 10:00 AM CDT Lab Department of Laboratory Medicine and Pathology, [place], [place] [address] [place] [phone] German Pierce P.A.-C. [address] [place] [phone] 03/11/2025 12:00 PM CDT Infusion Department of Oncology in [place], [place] [address] [place] [phone] German Pierce P.A.-C. [address] [place] [phone] 03/24/2025 7:10 AM CDT Lab Department of Laboratory Medicine and Pathology, [facility] in [place], [place] [address] [place] [phone] FaGerman Linn P.A.-Wade [address] [place] [phone] 03/24/2025 9:20 AM CDT Office Visit Department of Oncology in [place], [place] [address] [place] [phone] Rik Aguirre M.D., M.S. [address] [place] [phone] 03/24/2025 10:15 AM CDT Infusion Department of Oncology in [place], [place] [address] [place] [phone] German Pierce P.A.-Wade [address] [place] [phone] 04/01/2025 11:00 AM CDT Lab Department of Laboratory Medicine and Pathology, [facility] in [place], [place] [address] [place] [phone] German Pierce P.A.-Wade [address] [place] [phone] 04/01/2025 1:00 PM CDT Infusion Department of Oncology in [place], [place] [address] [place] [phone] German Pierce P.A.-Wade [address] [place] [phone] Scheduled Procedures Name Priority Associated Diagnoses Date/Ti [...] documented as of this encounter Care Teams Electric Deicer Assembler Relationship Specialty Start Date End Date Elsewhere, Pcp PCP - General Internal Medicine 10/13/22 documented as of this encounter
--- OUTSIDE RECORDS SUMMARY | 2025-01-27 17:03 | XMS_ITS | Encounter Summary ---
Author Organization [facility] Address [address] [place] [address] Care Team Providers Care Laborer Pipeline Name Role Phone Elsewhere, Pcp Primary Care Provider Unavailabl e Encounter Details Date Type Department Care Team (Late st Contact Info) Description 01/05/2025 Orders Only Preoperative Evaluation Center in [place], [place] [address] [place] [phone] Javier Tay M.S.N., R.N. [address] [place] [phone] Anemia (Primary Dx) Social History Tobacco Use Types Packs/Day Years Used Date Smoking Tobacco: Never Passive Smoke Exposure: Never Smokeless Tobacco: Never Alcohol Use Standard Drinks/Week Comments Not Currently 1 (1 standard drink = 0.6 oz pure alcohol) patient states no alcohol in 6+months [facility] Utilities Answer Date Recorded In the past [...] How often do you attend [facility] or anabaptist services? Patient declined 08/29/2022 Do you belong [...] Answer Date Recorded PHQ-2 Score 0 02/13/2019 [facility] of Occupat ional Health - Occupational Stress [...] your living situation today? I have a [facility] place to live 10/28/2024 Education Answer Date Recorded What is the highest level of school you have completed or the highest degree you have received? Associate degree: occupational, technical, or vocational program 08/29/2022 Sex and Gender Information Value Date Recorded Sex Assigned at Male 11/04/2018 9:57 AM DISCOUNT CLERK Legal Sex Male 4:48 PM DISCOUNT CLERK Gender Identity Male 11/04/2018 9:57 AM DISCOUNT CLERK Sexual Orientation Straight 11/04/2018 9: 57 AM DISCOUNT CLERK documented as of this encounter Plan of Treatment Upcoming Encounters Date Type Department Care Team (Latest Contact Info) Description 01/28/2025 12:20 PM CDT Lab Department of Laboratory Medicine and Pathology, [facility], in [place], [place] [address] [place] [address] German Pierce P.A.-C. [address] [place] [phone] 01/28/2025 2:30 PM CDT Infusion Department of Oncology in [place], [place] [address] [place] [phone] German Pierce P.A.-C. [address] [place] [phone] 01/30/2025 4:28 PM CDT Hospital Encounter Post Anesthesia Care Unit in [place], [place] [address] [place] [phone] Quirino Jackson M.D. [address] [place] [phone] 01/30/2025 4:28 PM CDT - 01/30/2025 7:18 PM CDT Surgery RST ROMB MAIN OR [address] [place] [phone] Quirino Jackson M.D. [address] [place] [phone] INSERTION [place] CHAIN WEIGHT EYELID 02/09/2025 1:45 PM CDT Office Visit Department of Otorhinolaryngology in [place], [place] [address] [place] [phone] Quirino Bobo M.D. [address] [place] [phone] 02/09/2025 3:00 PM CDT Office Visit [facility] in [place], [place] [address] [place] [phone] Quirino Jackson M.D. [address] [place] [phone] 02/10/2025 11:00 AM CDT Lab Department of Laboratory Medicine and Pathology, [facility] in [place], [place] [address] [place] [phone] German Pierce P.A.-C. [address] [place] [phone] 02/10/2025 1:00 PM CDT Office Visit Department of Oncology in [place], [place] [address] [place] [phone] Rik Aguirre M.D., M.S. [address] [place] [phone] 02/13/2025 9:45 AM CDT Infusion Department of Oncology in [address] [phone] German Pierce P.A.-Wade [address] [place] [phone] 02/19/2025 10:00 AM CDT Lab Department of Laboratory Medicine and Pathology, [facility] in [address] [phone] German Pierce P.A.-C. [address] [place] [phone] 02/19/2025 12:00 PM CDT Infusion Department of Oncology in [address] [phone] German Pierce P.A.-C. [address] [place] [phone] 03/03/2025 11:00 AM CDT Lab Department of Laboratory Medicine and Pathology, [facility] in [place], [place] [address] [place] [phone] German Pierce P.A.-C. [address] [place] [phone] 03/03/2025 1:00 PM CDT Office Visit Department of Oncology in [place], [place] [address] [place] [phone] Rik Aguirre M.D., M.S. [address] [place] [phone] 03/04/2025 7:30 AM CDT Infusion Department of Oncology in [place], [place] [address] [place] [phone] German Pierce P.A.-Wade [address] [place] [phone] 03/11/2025 10:00 AM CDT Lab Department of Laboratory Medicine and Pathology, [facility] in [place], [place] [address] [place] [phone] German Pierce P.A.-C. [address] [place] [phone] 03/11/2025 12:00 PM CDT Infusion Department of Oncology in [place], [place] [address] [place] [phone] German Pierce P.A.-C. [address] [place] [phone] 03/24/2025 7:10 AM CDT Lab Department of Laboratory Medicine and Pathology, [facility] in [place], [place] [address] [place] [phone] German Pierce P.A.-C. [address] [place] [phone] 03/24/2025 9:20 AM CDT Office Visit Department of Oncology in [place], [place] [address] [place] [phone] Rik Aguirre M.D., M.S. [address] [place] [phone] 03/24/2025 10:15 AM CDT Infusion Department of Oncology in [place], [place] [address] [place] [phone] German Pierce P.A.-C. [address] [place] [phone] 04/01/2025 11:00 AM CDT Lab Department of Laboratory Medicine and Pathology, [facility] in [address] [phone] German Pierce P.A.-C. [address] [place] [phone] 04/01/2025 1:00 PM CDT Infusion Department of Oncology in [address] [phone] German Pierce P.A.-C. [address] [place] [phone] Scheduled Procedures Name Priority Associated Diagnoses Date/Ti [...] as of this encounter Results * (ABNORMAL) CBC-Preop with [...] AM CDT 01/05/2025 10:33 AM CDT Narrative [facility] - 01/05/2025 11:26 AM CDT Specimen Information: Specimen ID: [id number] Specimen Type: Blood Specimen Collection Start Date: 01/05/2025 9:58 AM Specimen Received Date: 01/05/2025 10:33 AM Specimen ID: [id number] Specimen Type: Blood Specimen Collection Start Date: 01/05/2025 9:58 AM Specimen Received Date: 01/05/2025 10:21 AM us Xochilt Moser APRN, C.N.P., D.N.P. LAB BLOO D ADD-ON Final Result [facility] [address] [place] [address], [place] [facility] [place] [facility] [address] [place] [address] documented in this encounter Visit Diagnoses Diagnosis Otorrhea Right Ear Anemia Anemia- Primary Paralysis Facial documented in this encounter Additional Health Concerns Active Problems Noted Date Diagnosed Date Autogenerated Problem 01/05/2025 Assessment Noted Time PHQ-9 Depression Total Score: 5 12/20/19 19 2:49 PM CDT documented as of this encounter Care Teams Laborer Pipeline Relationship Specialty Start Date End Date Elsewhere, Pcp PCP - General Internal Medicine 10/13/22 documented as of this encounter
--- OUTSIDE RECORDS SUMMARY | 2025-01-27 17:03 | XMS_ITS | Encounter Summary ---
Author Organization [facility] Address [address] [facility] [place] [address] Care Team Providers Care Fax Machine Repairer Name Role Phone Nik Cleveland MD Unavailable [phone] To Miner MD Primary Care Provider [phone] Duncan Alarcon MD Primary Care Provider Yamile Park MD Primary Care Provider [phone] Duncan Alarcon MD Unavailable [phone] Yamile Park MD Unavailable Glenny Mendoza DO Unavailable Yamile Park MD Unavailable Nohemy Plascencia MD Primary Care Provider [phone] Nohemy Plascencia MD Unavailable [phone] Antoinette Champagne DO Primary Care Provider [phone] Encounter Details Date Type Department Care Team (Late st Contact Info) Description 10/02/2018 Allied Health/Nurse Visit [facility] [address] [place] [address] Tereza Mckay, RPH [facility] [address] [address] Social History Tobacco Use Types Packs/Day Years Used Date Smoking Tobacco: Never Smokeless Tobacco: Never PHQ-2 Answer Date Recorded PHQ-2 Score 0 09/18/2018 Sex and Gender Information Value Date Recorded Sex Assigned at Not on file Legal Sex Male 3:51 PM CDT Gender Identity Not on file Sexual Orientation Not on file documented as of this encounter Plan of Treatment Not on file documented as of this encounter Visit Diagnoses Not on filedocumented in this encounter Care Teams Fax Machine Repairer Relationship Specialty Start Date End Date To Miner MD [address] [place] [address] PCP - General Student in organized health care education/training program 04/17/18 10/27/18 Duncan Alarcon MD [address] [place] [address] PCP - General Student in organized health care education/training program 10/28/18 03/09/20 Yamile Park MD [address] [place] [address] PCP - General 03/10/20 03/09/22 Nohemy Plascencia MD [address] [place] [phone] PCP - General Family Medicine 03/10/22 03/09/24 Antoinette Champagne DO [address] [place] [address] PCP - General Family Medicine 03/10/24 11/02/24 Nik Cleveland MD [address] [place] [phone] Otolaryngology 04/11/17 Duncan Alarcon MD [address] [facility] [place] [address] Assigned PCP 01/29/20 03/13/20 Yamile Park MD [address] [place], [place] [phone] Assigned PCP 03/14/20 12/18/20 Glenny Mendoza DO [address] [place] [address] Assigned PCP 02/03/21 02/12/21 Yamile Park MD [address] [facility] [place] [id number] Assigned PCP 02/13/21 03/17/22 Nohemy Plascencia MD [address] [address] Assigned PCP 03/18/22 08/25/22 documented as of this encounter
--- OUTSIDE RECORDS SUMMARY | 2025-01-27 17:04 | XMS_ITS | Encounter Summary ---
Author Organization [facility] Address [address] [place] [address] Care Team Providers Care Religious Assistant Name Role Phone Elsewhere, Pcp Primary Care Provider Unavailabl e Reason for Referral * Outpatient (Routine) - Closed Specialty Diagnoses / Procedures Referred By Luz wu Referred To Contact Otorhinolaryngology Quirino Jackson M.D. [address] [place] [phone] Phone: tel: fax: [facility] Referral ID Status Reason Start Date Expiration Date Visits Re quested Visits Authorized [id number] Closed 12/19/2024 06/20/2026 1 1 Scheduling Instructions Return with Dr. Jackson 01/05 at 8:45am, ok to over book. Encounter Details Date Type Department Care Team (Late st Contact Info) Description 12/19/2024 Orders Only Department of Otorhinolaryngology in [place], [place] [address] [place] [phone] [place] [address] Social History Tobacco Use Types Packs/Day Years Used Date Smoking Tobacco: Never Passive Smoke Exposure: Never Smokeless Tobacco: Never Alcohol Use Standard Drinks/Week Comments Not Currently 1 (1 standard drink = 0.6 oz pure alcohol) patient states no alcohol in 6+months [facility] Utilities Answer Date Recorded In the past 12 months has e [employer], oil, or water [employer] threatened to shut off services in your [...] week 08/29/2022 How often do you attend [facility] or sikh services? Patient declined 08/29/2022 Do you belong [...] Answer Date Recorded PHQ-2 Score 0 02/13/2019 [facility] - Occupational [...] Sex Assigned at Male 11/04/2018 9:57 AM PRODUCT PICKER Legal Sex Male 4:48 PM PRODUCT PICKER Gender Identity Male 11/04/2018 9:57 AM PRODUCT PICKER Sexual Orientation Straight 11/04/2018 9: 57 AM PRODUCT PICKER documented as of this encounter Plan of Treatment Upcoming Encounters Date Type Department Care Team (Latest Contact Info) Description 01/28/2025 12:20 PM CDT Lab Department of Laboratory Medicine and Pathology, [facility], in [place], [place] [address] [place] [phone] German Pierce P.A.-Wade [address] [place] [phone] 01/28/2025 2:30 PM CDT Infusion Department of Oncology in [place], [place] [address] [place] [phone] German Pierce P.A.-C. [address] [place] [phone] 01/30/2025 4:28 PM CDT Hospital Encounter Post Anesthesia Care Unit in [place], [place] [address] [place] [phone] Quirino Jackson M.D. [address] [place] [phone] 01/30/2025 4:28 PM CDT - 01/30/2025 7:18 PM CDT Surgery [facility] MAIN OR [address] [place] [phone] Quirino Jackson M.D. [address] [place] [phone] INSERTION [place] OF [place]IA CHAIN WEIGHT EYELID 02/09/2025 1:45 PM CDT Office Visit Department of Otorhinolaryngology in [place], [place] [address] [place] [phone] Quirino Bobo M.D. [address] [place] [phone] 02/09/2025 3:00 PM CDT Office Visit Center for [facility] Medicine and Surgery in [place], [place] [address] [place] [phone] Quirino Jackson M.D. [address] [place] [phone] 02/10/2025 11:00 AM CDT Lab Department of Laboratory Medicine and Pathology, [facility] in [address] [phone] German Pierce P.A.-C. [address] [place] [phone] 02/10/2025 1:00 PM CDT Office Visit Department of Oncology in [place], [place] [address] [place] [phone] Rik Aguirre M.D., M.S. [address] [place] [phone] 02/13/2025 9:45 AM CDT Infusion Department of Oncology in [place], [place] [address] [place] [phone] German Pierce P.A.-C. [address] [place] [phone] 02/19/2025 10:00 AM CDT Lab Department of Laboratory Medicine and Pathology, [facility] in [place], [place] [address] [place] [phone] German Pierce P.A.-C. [address] [place] [phone] 02/19/2025 12:00 PM CDT Infusion Department of Oncology in [place], [place] [address] [place] [phone] German Pierce P.A.-C. [address] [place] [phone] 03/03/2025 11:00 AM CDT Lab Department of Laboratory Medicine and Pathology, [place], [place] [address] [place] [phone] German Pierce P.A.-C. [address] [place] [phone] 03/03/2025 1:00 PM CDT Office Visit Department of Oncology in [address] [phone] Rik Aguirre M.D., M.S. [address] [place] [phone] 03/04/2025 7:30 AM CDT Infusion Department of Oncology in [place], [place] [address] [place] [phone] German Pierce P.A.-C. [address] [place] [phone] 03/11/2025 10:00 AM CDT Lab Department of Laboratory Medicine and Pathology, [facility] in [place], [place] [address] [place] [phone] German Pierce P.A.-C. [address] [place] [phone] 03/11/2025 12:00 PM CDT Infusion Department of Oncology in [place], [place] [address] [place] [phone] German Pierce P.A.-C. [address] [place] [phone] 03/24/2025 7:10 AM CDT Lab Department of Laboratory Medicine and Pathology, [facility] in [place], [place] [address] [place] [phone] German Pierce P.A.-Wade [address] [place] [phone] 03/24/2025 9:20 AM CDT Office Visit Department of Oncology in [place], [place] [address] [place] [phone] Rik Aguirre M.D., M.S. [address] [place] [phone] 03/24/2025 10:15 AM CDT Infusion Department of Oncology in [place], [place] [address] [place] [phone] German Pierce P.A.-Wade [address] [place] [phone] 04/01/2025 11:00 AM CDT Lab Department of Laboratory Medicine and Pathology, [facility], in [place], [place] [address] [place] [phone] German Pierce P.A.-C. [address] [place] [phone] 04/01/2025 1:00 PM CDT Infusion Department of Oncology in [place], [place] [address] [place] [address] German Pierce P.A.-C. 200 [place] [phone] Scheduled Procedures Name Priority Associated Diagnoses Date/Ti me INSERTION GOLD WEIGHT EYELID Paralysis Facial 01/30/2025 4:28 PM CDT REPAIR ECTROPION Paralysis Facial 01/30/2025 4:28 PM CDT GRAFT FASCIA ANUEL Paralysis Facial 01/30/2025 4:28 PM CDT Scheduled Referrals Name Type Priority Associated Diagnoses Order Schedule Otorhinolaryngology office visit (clinic) Outpatient Referral Routine Expected: 01/05/2025, Expires: 03/20/2026 documented as of this encounter Visit Diagnoses Not on filedocumented in this encounter Additional Health Concerns Assessment Noted Time PHQ-9 Depression Total Score: 5 12/20/19 19 2:49 PM CDT documented as of this encounter Care Teams Religious Assistant Relationship Specialty Start Date End Date Elsewhere, Pcp PCP - General Internal Medicine 10/13/22 documented as of this encounter
--- OUTSIDE RECORDS SUMMARY | 2025-01-27 17:04 | XMS_ITS | Encounter Summary ---
Author Organization [facility] Address [address] [place] [address] Care Team Providers Care Marketing Traffic Coordinator Name Role Phone Elsewhere, Pcp Primary Care Provider Unavailabl e Reason for Referral * Outpatient (Routine) - Authorized Specialty Diagnoses / Procedures Referred By Luz wu Referred To Contact Ophthalmology Diagnoses Palsy Abducens Nerve Right Elieser Almonte M.D., Ph.D. 200 [place] [address] Phone: tel: fax: [facility] Referral ID Status Reason Start Date Expiration Date V isits Requested Visits Authorized [id number] Authorized 12/17/2024 06/18/2026 1 1 Encounter Details Date Type Department Care Team (Late st Contact Info) Description 12/17/2024 Orders Only Department of Ophthalmology in [place], [place] [address] [place] [phone] Elieser Almonte M.D., Ph.D. [address] [place] [phone] Palsy Abducens Nerve Right (Primary Dx) Social History Tobacco Use Types Packs/Day Years Used Date Smoking Tobacco: Never Passive Smoke Exposure: Never Smokeless Tobacco: Never Alcohol Use Standard Drinks/Week Comments Not Currently 1 (1 standard drink = 0.6 oz pure alcohol) patient states no alcohol in 6+months [facility] Utilities Answer Date Recorded In the past 12 months has e [employer], oil, or water [employer] threatened to shut off services in [...] week 08/29/2022 How often do you attend [facility] or cheondoism services? Patient declined 08/29/2022 Do you belong to any clubs o r organizations such as jewish groups, unions, fraternal or athletic groups, or [...] Date Recorded PHQ-2 Score 0 02/13/2019 [facility] - Occupational Stress Questionnaire Answer Date [...] Sex Assigned at Male 11/04/2018 9:57 AM SOFTWARE CONFIGURATION MANAGER Legal Sex Male 4:48 PM SOFTWARE CONFIGURATION MANAGER Gender Identity Male 11/04/2018 9:57 AM SOFTWARE CONFIGURATION MANAGER Sexual Orientation Straight 11/04/2018 9: 57 AM SOFTWARE CONFIGURATION MANAGER documented as of this encounter Plan of Treatment Upcoming Encounters Date Type Department Care Team (Latest Contact Info) Description 01/28/2025 12:20 PM CDT Lab Department of Laboratory Medicine and Pathology, [facility], in [place], [place] [address] [place] [phone] German Pierce P.A.-Wade [address] [place] [phone] 01/28/2025 2:30 PM CDT Infusion Department of Oncology in [place], [place] [address] [place] [phone] German Pierce P.A.-C. [address] [place] [phone] 01/30/2025 4:28 PM CDT Hospital Encounter Post Anesthesia Care Unit in [place], [place] [address] [place] [phone] Quirino Jackson M.D. [address] [place] [phone] 01/30/2025 4:28 PM CDT - 01/30/2025 7:18 PM CDT Surgery [facility] MAIN OR [address] [place] [phone] Quirino Jackson M.D. [address] [place] [phone] INSERTION [place]AND TRA[place]SE CHAIN WEIGHT EYELID 02/09/2025 1:45 PM CDT Office Visit Department of Otorhinolaryngology in [place], [place] [address] [place] [phone] Quirino Bobo M.D. [address] [place] [phone] 02/09/2025 3:00 PM CDT Office Visit Center for [facility] Medicine and Surgery in [place], [place] [address] [place] [phone] Quirino Jackson M.D. [address] [place] [phone] 02/10/2025 11:00 AM CDT Lab Department of Laboratory Medicine and Pathology, [facility] in [address] [phone] German Pierce P.A.-C. [address] [place] [phone] 02/10/2025 1:00 PM CDT Office Visit Department of Oncology in [place], [place] [address] [place] [phone] Rik Aguirre M.D., M.S. [address] [place] [phone] 02/13/2025 9:45 AM CDT Infusion Department of Oncology in [place], [place] [address] [place] [phone] German Pierce P.A.-C. [address] [place] [phone] 02/19/2025 10:00 AM CDT Lab Department of Laboratory Medicine and Pathology, [facility], in [place], [place] [address] [place] [phone] German Pierce PZane-C. [address] [place] [phone] 02/19/2025 12:00 PM CDT Infusion Department of Oncology in [place], [place] [address] [place] [phone] German Pierce P.A.-C. [address] [place] [phone] 03/03/2025 11:00 AM CDT Lab Department of Laboratory Medicine and Pathology, [place], [place] [address] [place] [phone] German Pierce P.A.-C. [address] [place] [phone] 03/03/2025 1:00 PM CDT Office Visit Department of Oncology in [address] [phone] Rik Aguirre M.D., M.S. [address] [place] [phone] 03/04/2025 7:30 AM CDT Infusion Department of Oncology in [address] [phone] German Pierce P.A.-C. [address] [place] [phone] 03/11/2025 10:00 AM CDT Lab Department of Laboratory Medicine and Pathology, [facility], in [address] [phone] German Pierce P.A.-C. [address] [place] [phone] 03/11/2025 12:00 PM CDT Infusion Department of Oncology in [place], [place] [address] [place] [phone] German Pierce P.A.-C. [address] [place] [phone] 03/24/2025 7:10 AM CDT Lab Department of Laboratory Medicine and Pathology, [facility] in [place], [place] [address] [place] [phone] German Pierce P.A.-Wade [address] [place] [phone] 03/24/2025 9:20 AM CDT Office Visit Department of Oncology in [place], [place] [address] [place] [phone] Rik Aguirre M.D., M.S. [address] [place] [phone] 03/24/2025 10:15 AM CDT Infusion Department of Oncology in [place], [place] [address] [place] [phone] German Pierce P.A.-Wade [address] [place] [phone] 04/01/2025 11:00 AM CDT Lab Department of Laboratory Medicine and Pathology, [facility], in [address] [phone] German Pierce P.A.-C. [address] [place] [phone] 04/01/2025 1:00 PM CDT Infusion Department of Oncology in [address] [place] [phone] German Pierce P.A.-C. [address] [place] [address] Scheduled Procedures Name Priority Associated Diagnoses Date/Ti me INSERTION GOLD WEIGHT EYELID Paralysis Facial 01/30/2025 4:28 PM CDT REPAIR ECTROPION Paralysis Facial 01/30/2025 4:28 PM CDT GRAFT FASCIA ANUEL Paralysis Facial 01/30/2025 4:28 PM CDT Scheduled Referrals Name Type Priority Associated Diagnoses Order Schedule Ophthalmology - Adult strabismus consult (clinic) Outpatient Referral Routine Palsy Abducens Nerve Right Expected: 12/17/2024, Expires: 03/18/2026 documented as of this encounter Visit Diagnoses Diagnosis Palsy Abducens Nerve Right- Primary Paralysis Facial documented in this encounter Additional Health Concerns Assessment Noted Time PHQ-9 Depression Total Score: 5 12/20/19 19 2:49 PM CDT documented as of this encounter Care Teams Marketing Traffic Coordinator Relationship Specialty Start Date End Date Elsewhere, Pcp PCP - General Internal Medicine 10/13/22 documented as of this encounter
--- OUTSIDE RECORDS SUMMARY | 2025-01-27 17:04 | XMS_ITS ---
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 Weakness Vocal Cord 08/01/2023 Dysfunction Eustachian Tube Right 09/23/2021 Overview (09/23/2021): Added automatically from request for surgery [id number] Tear Shoulder Labral Subsequent Left 06/23/2021 Rotator Cuff Disorder Left 06/23/2021 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 Linked Problems Malignant Neoplasm Of Nasoph arynx (HCC)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)Secondary Malignant Neoplasm Lymph Node (HCC)Other Detention Current Drug Therapy Treatment Medications Current Day (Day 8 , Cycle 1 - Planned for 01/28/2025) Next Day (Day 1, Cycle 2 - Planned for 02/11/2025) CISplatin (PlatinoL)CISplati n (PlatinoL) IVPB in 1000 mL (PlatinoL)gemcitabine (Gemzar)gemcitabine (Gemzar) IVPB (Gemzar)toripalimab-tpzi (Loqtorzi)toripalimab-tpzi (Loqtorzi) IVPB in 100 mL solution gemcitabine 1,400 mg in NaCl 0.9% 286.82 mL IVPB (Gemzar) CISplatin 141 mg in NaCl 0.9% 1,141 mL IVPB (PlatinoL)gemcitabine 1,400 mg in NaCl 0.9% 286.82 mL IVPB (Gemzar)toripalimab-tpzi 240 mg in NaCl 0.9% (non-PVC/non-DEHP) 106 mL IVPB (Loqtorzi) Vascular Access Patency - Peripheral Intravenous Catheter and Rapid Infusion Catheter* Plan Start Date:01/21/2025 Linked Problems DehydrationMalignant Neoplas m Of Nasopharynx (HCC) Treatment Medications No medications scheduled. Past Treatment and Therapy Plans Flushes/Hydration Plan Name Start Date Discontinue Date Treatment Medications Discontinue Reason Plan Provider VASCULAR ACCESS PATENCY - IMPLANTED VASCULAR ACCESS DEVICE (IVAD) VENOUS NON-VALVED 02/09/2022 02/09/2022 No medications scheduled. Amendment Change - VASCULAR ACCESS PATENCY - IMPLANTED VASCULAR ACCESS DEVICE (IVAD) VENOUS NON-VALVED 11/14/2018 11/13/2019 No medications scheduled. Upgrade 2019 Therapy Plan Conversion - Hematology / Oncology Treatment 1 Plan Name Start Date Discontinue Date Treatment Medications Discontinue Reason Plan Provider Cycles CISplatin Weekly ( with Radiation ) ( Head & Neck ) 11/25/2018 01/11/2021 CISplatin (PlatinoL) IVPB in 500 mL (PlatinoL) Unlisted Reji Negrete M.B.B.S., Ph.D. 1 of 1 cycle started Infusion Therapy 1 Plan Name Start Date Discontinue Date Treatment Medications Discontinue Reason Plan Provider HYDRATION 11/26/2018 07/22/2019 No medications scheduled. Therapy Complete Reji Alfaro M.B.BChristi., Ph.D. Radiation Treatments * Course 1_pHN 11/25/2018 - 01/10/2019 Treatment Period Energy Fraction Dose Fractions Total Dose Plans Planned [id number] 12/03/2018 - 01/10/2019 200 cGy 5,800 cGy [id number] 11/25/2018 - 12/02/2018 200 cGy 7,000 cGy Reference Points Delivered [id number] 11/25/2018 - 01/10/2019 7,000 cGy Lifetime Dose Tracking * Chemical Lifetime Dose Automatic Entry Manual Entr y Radiation 27.1 mGy 27.1 mGy 0 mGy Fluoro Time 7.8 minutes 7.8 minutes 0 minutes Treatment Summaries Malignant Neoplasm Of Nasopharynx (HCC)* Images from the original note were not included. Your Survivorship Care Plan Provided by [facility] on 03/20/19 General Information Patient name Stew Jj (home) Date of 1965 Introduction This is your personal survivorship care plan. It is both a summary of your treatment history as well as a follow-up plan to guide you through the management of your continued medical care. The plan was developed by a multidisciplinary team of [facility] cancer providers to help you understand, discuss, and plan post-treatment needs with your healthcare providers, including your primary care team. It includes detailed medical information regarding your treatment as well as information relating to potential shorter and long-term side-effects post-treatment. It also provides specific tools and direction for self-care, including advice on wellness that encompasses both the physical and emotional aspects of your journey to recovery. What is Survivorship? The most widely used definition of survivorship care involves the following elements: 1. Prevention of recurrent and new cancers, and of other late effects; 2. Surveillance for cancer spread, recurrence, or second cancers; assessment of medical and psychosocial late effects; 3. Intervention for consequences of cancer and its treatment, for example: medical problems such aslymphedema and sexual dysfunction; symptoms, including pain and fatigue; psychological distress experienced by cancer survivors and their caregivers; and concerns related to employment, insurance, and disability; and 4. Coordination between specialists and primary care providers to ensure that all of the survivors health needs are met. Care Team Medical Oncologist Reji Anguiano M.B.BCourtneyS., Ph.D. German Flores P.A.-Wade [phone] Your oncologist is your point of contact for any questions regarding the adverse effects of intravenous (IV) and oral cancer treatment (e.g. nausea, vomiting, tingling in your hands/feet). Radiation Oncologist Tasneem Grayson M.D. [phone] Your radiation oncologist is your point of contact for any questions you have regarding radiation therapy including skin issues, swallowing, and pain related to radiation therapy Speech Pathologist Jody Maddox M.S., [facility] [employer] TE[employer]ER [phone] Your speech pathologist is your point of contact for any question you have regarding swallowing issues or speech problems. Dentist Leila Pro D.D.S. [phone] Dietitician Selena Fermin, RDN, Your branch examiner is your point of contact for any questions you have regarding liquid supplements or nutrition Primary Care Physician No primary care provider on file. Cancer Diagnosis Information Diagnosis Malignant Neoplasm Of Nasopharynx (HCC) Diagnosis date 11/03/2018 Biopsy result from [place] [id number] Staging information cT4 cN1 cM0 Background Information Alcohol use reports that he does not drink alcohol. Tobacco use reports that he has never smoked. He has never used smokeless tobacco. Treatment Summary Chemotherapy and Supportive Care Treatment History Treatment Goal Cure Plan Name CISplatin Weekly ( with Radiation ) ( Head & Neck ) Status Complete Start Date 11/25/2018 End Date 01/06/2019 Cancer Medication(s) 11/25/18 - 01/06/19 Weekly cisplatin 40 mg/m2 x 7 weeks 10/03/18 - 11/14/18 Induction chemotherapy with cisplatin/docetaxel/5FU for two cycles Radiation History Radiation start date 11/25/18 Radiation end date 01/10/19 Total dose/fractions 35 fractions given, 7000 cGy External-beam therapy Proton beam radiation therapy Significant cancer treatment complications or sequelae Patient continues to experience side effects from treatment including throat pain, altered taste, and constipation. On January 04 he presented to the ED with constipation. Follow up with Medical Oncology: Every 3 months for first two years post treatment, Every 6 months for the third year, annually for 4th and 5th year, then graduate. Imaging at 3 months and 1 year post treatment. Optional imaging at the discretion of the provider or for any new or concerning symptoms. TSH (thyroid blood level) every 6-12 months, lifelong, would be done by local primary care provider after you graduate from med/onc follow up. Follow-up care with your Primary Care Physician (PCP) Follow?up care with your primary care physician is recommended for age?appropriate cancer screening, for monitoring blood pressure, cholesterol, blood sugar, weight, and for other medical conditions.Follow up with your dentist for regular evaluations and cleanings. Wellness Recommendations: Healthy food choices include a wide variety of fruits, vegetables, whole grains, poultry, and fish while minimizing refined grains, processed and red meats, desserts, and high?fat dairy products. Exercise after cancer treatment improves quality of life, fatigue, mood, muscle strength, and physical functioning. It also decreases the risk of cancer recurrence and the risk of cardiovascular disease. Work up to exercising 30 minutes/day at least 5 days/week, and strive to achieve a healthy weight (BMI 18.5?25). Alcohol use is linked to the risk of head and neck cancer recurrence. If you choose to drink alcohol, minimize your consumption (the less the better). Tobacco will increase the risk of head and neck cancer recurrence. If you smoke, talk to your doctor to help you quit. The [facility] can help. Stress management tools such as meditation, prayer, and breathing exercises may be helpful. If you develop feelings of worry, anxiety, sadness, or hopelessness that persist for > 2 weeks, talk to a health care provider. Sleep is important for healing and well-being. Most adults require 7?9 hours of sleep/night. If youare having difficulty sleeping, talk to your provider . Chronic use of opioid pain medication is extremely harmful to your health. If you were given opioidpain medication during your cancer treatment and have not been weaned off the medication or are having trouble weaning off, talk with your health care provider. Symptoms to report: Persistent or new pain in the head and neck Bleeding Shortness of breath or cough Worsening swallow function New swelling in the neck or elsewhere in the body New pain outside head and neck If any of these symptoms or other new symptoms not listed persist >2 weeks, contact your health care provider. Possible chronic side effects from head and neck cancer treatment : Pain Lymphedema (refers to swelling that can occur in one or both of your arms due to removal or damage to lymph nodes) Dysphagia (difficulty swallowing) Xerostomia (dry mouth) Trismus (lockjaw) Neck fibrosis Dysgeusia (burning, painful mouth) Thick mucous Osteonecrosis of the jaw (the breakdown of bone cells in your jaw) Tooth decay Shoulder dysfunction Fatigue Depression Anxiety Hypothyroidism (underactive thyroid gland) Tinnitus / hearing loss Neuropathy (numbness and tingling) Renal insufficiency (poor functioning of the kidneys) Back to Work Going back to work can be a challenging transition after cancer treatment. If you have questions about employment, ask your health care provider to refer you to a [facility] social insurance administrator. He or shecan give you workplace information. Americans with Disabilities Act If you believe that your physical function is temporarily or permanently affected by cancer or its treatment, you should know about the Americans with Disabilities Act, or ADA. ADA bans discrimination against qualified employees with disabilities who can perform the essential functions of their job, with or without reasonable accommodations. Cancer survivors who return to work are due any reasonable change or adjustment in their work environment that allows a person with a disability to have equal opportunities. A social insurance administrator can help you look at your situation and the Americans with Disabilities Act Genetic testing and employment Sometimes cancer diagnosis and treatment involves genetic testing. This information becomes a part of your medical record. It is against the law for an employer to discriminate against a job applicant or a current or former employee because of genetic information Some of the information provided in this care plan was provided by the [place] Department of Health and Human Services and National Cancer Gobles. (2014) Facing Forward: Life after cancer treatment. NIH Publications No. 14-4493. Resources [place] [employer] The [place] [employer] is a non-profit organization that has developed many resources for patients and families dealing with a cancer diagnosis. http://www.cancer.org National Cancer Gobles The National Cancer Gobles (NCI) is part of the National Gobles for Health and is a governmental organization with a mission focused on cancer research and training. The NCI has developed many patient resources related to cancer. Included here are their links to their Facing Forward document which is an electronic resource focused on helping patients negotiate their lives after cancer treatment. http://www.cancer.gov http://www.cancer.gov/cancertopics/coping/ktem-hkxyn-wbwfpwdct [facility] Cancer Education Program www.[facility] hospitalFormlabs.Nomi/cancer-education Cancer Support Community www.cancersupportcommunity.org/?gclid=RMwj-6-3mQBFOAqArAbyolFL5w [facility] Living with Cancer blog www.[employer]/livingwithcancer Support for people with Oral and Head and Neck Cancer (SPOHNC) a nonprofit organization involved in the development of programs of Support for people with Oral and Head and Neck Cancer (SPOHNC). https://www.spohnc.org/ HNCA HNCA provides support to head and neck cancer patients throughout the year, supports ongoing research in head and neck oncology and educates children and adults in the disease process, treatment andprevention of oral, head and neck cancers. https://www.headandneck.org/
--- OUTSIDE RECORDS SUMMARY | 2025-01-27 17:04 | XMS_ITS | CCD ---
Author Name Interface, [id number] lity Address [address] [place], [place] [address] Oncology Address [address] [place] [address] Care Team Providers Care Heel Burnisher Name Role Phone Wilbert Gonzales Unavailable Unavailable Allergies and Adverse Reactions Reason for Visit Functional Status Medications Problems Social History
--- OUTSIDE RECORDS SUMMARY | 2025-01-27 17:05 | XMS_ITS | Clinical Summary ---
Author Organization [facility] Address [address] [place] [address] Care Team Providers Care Collection Systems Foreman Name Role Phone Unavailable Primary Care Provider Unavailabl e Source Comments You are receiving this document as you are listed as the primary care provider,follow-up provider, or the patient has been referred to you for consultation.This is in compliance with the Medicare and[facility] EHR Incentive Program,which states Providers who transition their patient to another setting of careor provider of care or refers their patient to another provider of care shouldprovide summary care record for each transition of care or referral. [facility] Social History Tobacco Use Types Packs/Day Years Used Date Smoking Tobacco: Never Assessed Sex and Gender Information Value Date Recorded Sex Assigned at Not on file Legal Sex Male 3:06 PM CDT Gender Identity Not on file Sexual Orientation Not on file Plan of Treatment Health Maintenance Due Date Last Done Comments Colon Cancer Screening Plan Due 1965 Hep C Screening (Preventive Services) 1965 PSA Screening Discussion 1965 HIV Screening (Preventive Services) 1983 Adult Preventive Visit 1985 HepB Vaccine (1) 1986 Cholesterol 2002 Pneumococcal Vaccine 50+ Yrs (1 of 1 - PCV) 2017 Zoster/Shingles Vaccine (1 of 2) 2017 COVID-19 Vaccine (1 - 2023- season) 2024 DTaP/Tdap/Td Vaccine (2 - Tdap) 03/02/2025 03/02/2015, 11/03/1991, 03/31/1991, Additional history exists Influenza Vaccine (Season Ended) 2025 05/26/2016 HepA Vaccine Aged Out No longer eligi ble based on patient's age to complete this topic Hib Vaccine Aged Out No longer eligi ble based on patient's age to complete this topic IPV (Polio) Vaccine Aged Out No longe r eligible based on patient's age to complete this topic MCV4 Vaccine Aged Out No longer eligi ble based on patient's age to complete this topic Meningococcal B Vaccine Aged Out No l onger eligible based on patient's age to complete this topic
--- OUTSIDE RECORDS SUMMARY | 2025-01-27 17:05 | XMS_ITS | Clinical Summary ---
Author Organization [facility] Address [address] [place] [address] Care Team Providers Care Truck Rental Service Attendant Name Role Phone Elsewhere, Pcp Primary Care Provider Unavailabl e Source Comments Patient records contain information from all sites at [facility]. For routine questions regarding patient records, call [phone] during business hours, M-F 8:00 AM - 5:00 PM Central Time. Record requests for emergency care only can be directed to [phone] at any time.[facility] Medications prednisoLONE acetate (PRED FORTE) 1 % ophthalmic suspension Administer 2 drops into both eyes 2 (two) times a day as needed. 03/07/20 22 Active acetaminophen (TYLENOL) 500 mg tablet Take 2 tablets (1,000 mg total) by mouth every 6 (six) hours. 10/13/19 23 Active Additional Information Patient not taking.Reported on 01/27/2025 ibuprofen (ADVIL,MOTRIN) 200 mg tablet Take 3 tablets (600 mg total) by mouth every 6 (six) hours as needed for pain. 10/13/19 23 Active erythromycin (ROMYCIN) 5 mg/gram (0.5 %) ophthalmic ointment Apply 1 cm to both eyes daily as needed. 04/17/20 23 Active Systane, propylene glycoL, 0.4-0.3 % ophthalmic solution Administer 1 drop into both eyes 4 (four) times a day as needed for dry eyes. INSTILL 1 DROP INTO EACH EYE 4 TIMES A DAY// DIAGRAMMER 1 NCOS BOUCHRA 2 SAB QHOV MUAG, 1 HNUB 4 ZAUG 05/24/20 23 Active vitamin E 180 mg (400 Unit) capsule Take 1 capsule (180 mg total) by mouth daily. 90 capsule 1 07/23/20 23 Active Additional Information Patient not taking.Reported on 01/27/2025 fluoride, sodium, (PREVIDENT) 1.1 % gel dental gel Apply 1 Application to the mouth or throat daily. Foss, Floss, Rinse. Apply a thin ribbon to trays for 5 minutes preferably at bedtime: expectorate gel and do not eat, drink, or rinse for 30 minutes. 56 g 11 09/18/19 24 Active sodium chloride 0.9 % nebulizer solution Inhale 5 mL by nebulization as needed (tracheal secretions). 90 mL 12 11/20/19 24 Active meclizine (Antivert) 25 mg tablet Take 1 tablet (25 mg total) by mouth as needed for dizziness. 30 tablet 5 3:32 PM IMPLEMENTATION CONSULTANT 10/31/19 25 Active ADEK multivitamins with minerals (MVW Complete Formulation) 37.5 mcg-1,000 mcg chewable tablet Chew 1 tablet daily. 60 tablet 2 11/01/19 25 Active pentoxifylline (TRENtal) 400 mg ER tablet Take 1 tablet (400 mg total) by mouth 3 (three) times a day with meals. 270 tablet 3 5 2:32 PM CDT 12/12/19 25 Active HYDROcodone-acetam inophen ([place]) 5-325 mg per tabletIndications: Prolonged Acute Pain/Traumatic Injury Take 1 tablet by mouth every 6 (six) hours as needed for pain for up to 30 doses Indication: Prolonged Acute Pain/Traumatic Injury. 30 tablet 5 2:33 PM CDT 12/12/19 25 Active ondansetron ODT (Zofran-ODT) 4 mg disintegrating tablet Dissolve 4 mg in the mouth as needed for nausea or vomiting. 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 Take daily starting at bedtime first day of chemotherapy continuing for 4 days after each chemotherapy dose. 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 First go to med for nausea. 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 Take daily starting at bedtime first day of chemotherapy continuing for 4 days after each chemotherapy dose. May take as needed at bedtime after fourth day if nausea/vomiting persists. If you experience nausea/vomiting during Cycle 1, start the night prior to chemotherapy for Cycle 2 and beyond. 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 Take daily for 3 days on Days 2, 3 and 4 of each cycle. 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 Malignant Neoplasm Of Nasopharynx (HCC) (Primary Dx) 01/21/2025 7:30 AM CDT Infusion Department of Oncology in [place], [place] [address] [place] [phone] German Chowdhury, P.A.-C. 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 01/15/2025 3:45 PM CDT Comprehensive Visit Department of Ophthalmology in [place], [place] [address] [place] [phone] Carlin Toure M.D. Paralysis Facial; Lagophthalmos Paralytic Right; Ptosis Brow; Palsy Abducens Nerve Right 01/15/2025 3:00 PM CDT Comprehensive Visit Department of Ophthalmology in [place], [place] [address] [place] [phone] Marbin Downs M.D. Griepentrog, Gregory J, M.D. Paralysis Facial (Primary Dx); Lagophthalmos Paralytic Right; Ptosis Brow; Palsy Abducens Nerve Right 01/15/2025 Ancillary Procedure Department of Ophthalmology 01/13/2025 Clinical Communication Department of Oncology in [place], [place] [address] [place] [phone] German Chowdhury P.A.-C. 01/08/2025 10:40 AM CDT Education Department of Oncology in [address] [phone] German Chowdhury P.A.-C. Horn, Deborah L, R.N. 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 Otorrhea Right Ear Discharge Disposition: Home or Self Care 01/05/2025 10:45 AM CDT Office Visit Department of Otorhinolaryngology in [place], [place] [address] [place] [phone] Keke Mckeon M.D. 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 Otorrhea Right Ear; Anemia Discharge Disposition: Home or Self Care 01/05/2025 8:45 AM CDT Office Visit [facility] in [address] [phone] Quirino Jackson M.D. Paralysis Facial (Primary Dx) 01/05/2025 8:15 AM CDT Office Visit Department of Otorhinolaryngology in [address] [phone] Quirino Bobo M.D. 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 Schedule surgery 01/05/2025 Orders Only Preoperative Evaluation Center in [address] [phone] Javier Tay, M.S.N., R.N. Anemia (Primary Dx) 01/05/2025 Orders Only Preoperative Evaluation Center in [address] [phone] Lakeshia Ng APRN, C.N.P. Preanesthetic Medical Exam (Primary Dx); Anemia 01/02/2025 Orders Only Virtual Review in [place], [place] [address] [place] [phone] Alison Zurita 01/02/2025 Clinical Communication Department of Oncology in [place], [place] [address] [place] [address] Rik Aguirre M.D., M.S. 12/31/2024 Orders Only Department of Oncology in [place], [place] [address] [place] [phone] Rik Aguirre M.D., M.S. 12/24/2024 Clinical Communication Department of Otorhinolaryngology in [place], [place] [address] [place] [phone] Keke Mckeon M.D. Appt Request (return) 12/22/2024 2:00 PM CDT Office Visit Department of Oncology in [place], [place] [address] [place] [phone] Rik Aguirre M.D., M.S. Malignant Neoplasm Of Nasopharynx (HCC) (Primary Dx) 12/19/2024 Documentation Department of Otorhinolaryngology in [place], [place] [address] [place] [phone] Quirino Jackson M.D. 12/19/2024 Orders Only Department of Otorhinolaryngology in [place], [place] [address] [place] [phone] Quirino Jackson M.D. 12/17/2024 1:00 PM CDT Office Visit Department of Ophthalmology in [address] [phone] Elieser Almonte M.D., Ph.D. Esotropia (Primary Dx); Palsy Abducens Nerve Right; Diplopia; Injury Facial Nerve Subsequent Right; Malignant Neoplasm Of Nasopharynx (HCC) 12/17/2024 12:00 PM CDT Ancillary Procedure Department of Ophthalmology in [place], [place] [address] [place] [phone] Quirino Jackson M.D. Ptosis Brow 12/17/2024 Orders Only Department of Ophthalmology in [place], [place] [address] [place] [phone] Almonte, Yahir, M.D., Ph.D. Palsy Abducens Nerve Right (Primary Dx) 12/17/2024 Ancillary Procedure Department of Ophthalmology 12/11/2024 1:00 PM CDT - 12/11/2024 3:20 PM CDT Hospital Encounter Department of Radiation Oncology in [place], [place] [address] [place] [address] Tasneem Grayson M.D. Malignant Neoplasm Of Nasopharynx (HCC) (Primary Dx) 11/10/2024 Clinical Communication Department of Otorhinolaryngology in [place], [place] [address] [place] [phone] Quirino Jackson M.D. 11/04/2024 1:00 PM IMPLEMENTATION CONSULTANT Office Visit Department of Otorhinolaryngology in [address] [phone] Quirino Bobo M.D. Malignant Neoplasm Of Nasopharynx (HCC) (Primary Dx) 11/04/2024 Clinical Communication Department of Otorhinolaryngology in [place], [place] [address] [place] [phone] Krystle Tafoya M.D. 11/03/2024 Clinical Communication [facility] Priya Monsalve, Kelechi Follow-up Orders (RN CM received phone call from home health care inquiring about home care orders. ) 11/03/2024 Clinical Communication Department of Otorhinolaryngology in [place], [place] [address] [place] [phone] Quirino Bobo M.D. 10/31/2024 Clinical Communication [facility] [address] [place] [phone] Trever Newman M.D. 10/31/2024 Clinical Communication Department of Oncology in [place], [place] [address] [place] [phone] Trever Newman M.D. 10/31/2024 Ancillary Procedure Department of Otorhinolaryngology 10/28/2024 9:53 AM IMPLEMENTATION CONSULTANT - 10/31/2024 3:11 PM IMPLEMENTATION CONSULTANT Hospital Encounter [facility], Fourth Floor [address] [place] [address] Natali Berman APRN, C.N.P., D.N.P., M.S.N. Quirino Ma M.D., Ph.D. 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) Discharge Disposition: Home-Health Care [facility] from Last 3 Months Immunizations Immunization Administration Dates Next Due DTaP, Unspecified 03/02/2015 MMR 11/03/1991 SARS-COV-2 (COVID-19) - PFIZ ER (Discontinued)(12 years or older) 07/11/2021 Td (Adult), adsorbed 11/03/1991,03/31/1991,07/27 Tdap 03/02/2015 Tuberculin Skin Test, Unspecified 03/02/2015 influenza trivalent vaccine (6 months and older)(PF) 05/26/2016 influenza vaccine quad (FLUZ ONE/FLUARIX) (6 months and older)(PF) 07/11/2021 Family History Medical History Relation Name Comments Other cancer Brother Alvaro Jj Relation Name Status Comments Brother Alvaro Jj Social History Tobacco Use Types Packs/Day Years Used Date Smoking Tobacco: Never Passive Smoke Exposure: Never Smokeless Tobacco: Never Tobacco Cessation:Counseling Given: Not Answered Alcohol Use Standard Drinks/Week Comments Not Currently 1 (1 standard drink = 0.6 oz pure alcohol) patient states no alcohol in 6+months [facility] Utilities Answer Date Recorded In the past 12 months has e MD On[employer]Line, oil, or water [employer] threatened to shut off services in [...] How often do you attend chur or yazdanism services? Patient declined 08/29/2022 Do [...] Answer Date Recorded PHQ-2 Score 0 02/13/2019 [facility] [place] [facility] - Occupational Stress [...] your living situation today? I have a [facility] place to live 10/28/2024 Education Answer Date Recorded What is the highest level of school you have completed or the highest degree you have received? Associate degree: occupational, technical, or vocational program 08/29/2022 Sex and Gender Information Value Date Recorded Sex Assigned at Male 11/04/2018 9:57 AM IMPLEMENTATION CONSULTANT Legal Sex Male 4:48 PM IMPLEMENTATION CONSULTANT Gender Identity Male 11/04/2018 9:57 AM IMPLEMENTATION CONSULTANT Sexual Orientation Straight 11/04/2018 9: 57 AM IMPLEMENTATION CONSULTANT Last Filed Vital Signs Vital Sign Reading Time Taken Comments Blood Pressure 89/57 01/27/2025 3:19 PM CDT Pulse 76 01/27/2025 3:19 PM CDT Temperature 36.4 C (97.5 F) 01/21/2025 7:00 AM CDT Respiratory Rate 16 01/08/2025 9:03 AM CDT Oxygen Saturation 99% 01/08/2025 9:03 AM CDT Inhaled Oxygen Concentration - - Weight 64.8 kg (142 lb 12 oz) 01/21/2025 7:00 AM CDT Height 166.8 cm (5' 5.67) 01/08/2025 9:03 AM CD T Body Mass Index 23.27 01/08/2025 9:03 AM CDT Plan of Treatment Upcoming Encounters Date Type Department Care Team (Latest Contact Info) Description 01/28/2025 12:20 PM CDT Lab Department of Laboratory Medicine and Pathology, [facility], in [place], [place] [address] [place] [phone] German Pierce P.A.-C. [address] [place] [phone] 01/28/2025 2:30 PM CDT Infusion Department of Oncology in [place], [place] [address] [place] [phone] German Pierce P.A.-C. [address] [place] [phone] 01/30/2025 4:28 PM CDT Hospital Encounter Post Anesthesia Care Unit in [place] [id number] [place] [phone] Quirino Jackson M.D. [address] [place] [phone] 01/30/2025 4:28 PM CDT - 01/30/2025 7:18 PM CDT Surgery [facility] [address] [place] [phone] Quirino Jackson M.D. [address] [place] [phone] INSERTION JACKSON CHAIN WEIGHT EYELID 02/09/2025 1:45 PM CDT Office Visit Department of Otorhinolaryngology in [place], [place] [address] [place] [phone] Quirino Bobo M.D. [address] [place] [phone] 02/09/2025 3:00 PM CDT Office Visit Center for [facility] in [place], [place] [address] [place] [phone] Quirino Jackson M.D. [address] [place] [phone] 02/10/2025 11:00 AM CDT Lab Department of Laboratory Medicine and Pathology, [facility] in [place], [place] [address] [place] [phone] German Pierce P.A.-CCourtney [address] [place] [phone] 02/10/2025 1:00 PM CDT Office Visit Department of Oncology in [address] [phone] Rik Aguirre M.D., M.S. [address] [place] [phone] 02/13/2025 9:45 AM CDT Infusion Department of Oncology in [address] [phone] German Pierce P.A.-CCourtney [address] [place] [phone] 02/19/2025 10:00 AM CDT Lab Department of Laboratory Medicine and Pathology, [facility] in [place], [place] [address] [place] [phone] German Pierce P.A.-CCourtney [address] [place] [phone] 02/19/2025 12:00 PM CDT Infusion Department of Oncology in [place], [place] [address] [place] [phone] German Pierce P.A.-C. [address] [place] [phone] 03/03/2025 11:00 AM CDT Lab Department of Laboratory Medicine and Pathology, [facility] in [place], [place] [address] [place] [phone] German Pierce P.A.-C. [address] [place] [phone] 03/03/2025 1:00 PM CDT Office Visit Department of Oncology in [place], [place] [address] [place] [phone] Rik Aguirre M.D., M.S. [address] [place] [phone] 03/04/2025 7:30 AM CDT Infusion Department of Oncology in [place], [place] [address] [place] [phone] German Pierce P.A.-C. [address] [place] [phone] 03/11/2025 10:00 AM CDT Lab Department of Laboratory Medicine and Pathology, [facility] in [place], [place] [address] [place] [phone] German Pierce P.A.-C. [address] [place] [phone] 03/11/2025 12:00 PM CDT Infusion Department of Oncology in [place], [place] [address] [place] [phone] German Pierce P.A.-C. [address] [place] [phone] 03/24/2025 7:10 AM CDT Lab Department of Laboratory Medicine and Pathology, [facility] in [place], [place] [address] [place] [phone] German Pierce P.A.-CCourtney [address] [place] [phone] 03/24/2025 9:20 AM CDT Office Visit Department of Oncology in [place], [place] [address] [place] [address] Rik Aguirre M.D., M.S. [address] [place] [phone] 03/24/2025 10:15 AM CDT Infusion Department of Oncology in [place], [place] [address] [place] [phone] German Pierce P.A.-CCourtney [address] [place] [phone] 04/01/2025 11:00 AM CDT Lab Department of Laboratory Medicine and Pathology, [facility], in [place], [place] [address] [place] [phone] German Pierce P.A.-CCourtney [address] [place] [phone] 04/01/2025 1:00 PM CDT Infusion Department of Oncology in [place], [place] [address] [place] [phone] German Pierce P.A.-CCourtney [address] [place] [phone] Scheduled Procedures Name Priority Associated Diagnoses Date/Ti me INSERTION GOLD WEIGHT EYELID Paralysis Facial 01/30/2025 4:28 PM CDT REPAIR ECTROPION Paralysis Facial 01/30/2025 4:28 PM CDT GRAFT FASCIA ANUEL Paralysis Facial 01/30/2025 4:28 PM CDT Health Maintenance Due Date Last Done Comments CT Colonography 1967 Cologuard 1967 Colonoscopy 1967 Colorectal Cancer Screening 1967 FIT 1967 Hepatitis C Screening 1967 Lipid (Cholesterol) Screening 1967 Hepatitis B Vaccines (1 of 3 - 19+ 3-dose series) 1986 Pneumococcal vaccine (50+ years) (1 of 2 - PCV) 1986 Zoster Vaccines (1 of 2) 1986 COVID-19 Vaccine (2 - Pfizer risk series) 08/01/2021 07/11/2021 Influenza Vaccine (#1) 2024 07/11/2021, 2015 Depression Screening (Annual PHQ-2) 09/10/2024 DTaP,Tdap,and Td Vaccines (3 - Td or Tdap) 03/02/2025 03/02/2015, 03/02/2015, 11/03/1991, Additional history exists Fasting Glucose for Diabetes Screening 01/21/2028 01/20/2025, 10/31/2024, 10/30/2024, Additional history exists HPV Vaccines Aged Out No longer eligi ble based on patient's age to complete this topic IPV Vaccines Aged Out No longer eligi ble based on patient's age to complete this topic Goals Goal Patient Goal Type Associated Problems Recent Progress Patient-Stated? Author Autogenerat ed Goal Care Plan Autogenerated Problem No Quirino Jackson M.D. Medical Devices Implanted Type Area Job Boss Device Identifier Shelf Expiration Date Model / Serial / Lot Gel Inj W/Lido - [id number] Implanted:Qty : 1 on 08/21/2023 by Keke Mckeon M.D. at [facility] Bone or Tissue Right: [facility] 08/09/2025 [id number] / [id number] Description:0.8 mL injected Gel Inj W/Lido - [id number] Implanted:Qty : 1 on 08/21/2023 by Keke Mckeon M.D. at [facility] Bone or Tissue Right: Vocal Cord [employer] [facility] 08/09/2025 [id number] / / [id number] Description:Injected 0.2mL m ore for total of 1mL restylane injected in Right vocal cord Tb Vnt Gd Grommet 1.14x9.5x12 - [id number] Implanted:Qty : 1 on 11/29/2021 by Iggy Pacheco M.D. at [facility] Ear Tubes (e.g. PE Tubes) Right: Ear Med[employer]onic [id number] / / Explanted Type Area Job Boss Device Identifier Shelf Expiration Date Model / Serial / Lot Implantable Port-10/01/2018 Implanted:10/01 (Quantity not on file) Explanted:08/28 (Quantity not on file) Implantable Port Right: Chest Description:EMR: QREADS: IR Port Placement Report (ODM) dated 10/01/2018: Port image labeled as 8F [employer] Port placement. Care Everywhere: [facility] (placement of port). 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) Other Residential Current Drug Therapy COMPREHENSIVE METABOLIC PANEL, S/P Routine 01/20/2025 10:08 AM CDT Malignant Neoplasm Of Nasopharynx (HCC) 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) Other Residential Current Drug Therapy CBC WITH DIFFERENTIAL, B Routine 025 10:08 AM CDT Malignant Neoplasm Of Nasopharynx (HCC) 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) Other Residential Current Drug Therapy SENSORY MOTOR EXAM Routine 01/15/2025 3:53 PM CDT Palsy Abducens Nerve Right OPHTHALMOLOGY IMAGE EXAM Routine 12:[address] TEMPORAL BONE WITHOUT IV CONTRAST RAD - Routine (most inpatients and all outpatients) 01/05/2025 11:49 AM CDT Otorrhea Right Ear CBC-PREOP WITH REFLEX ANEMIA PANEL Routine 01/05/2025 9:58 AM CDT Anemia CREATININE WITH EGFR, S/P Routine 2024 9:58 AM CDT Otorrhea Right Ear OTORHINOLARYNGOLOGY IMAGE EXAM Routine 01/05/2025 9:06 AM CDT EBV DNA DETECT/QUANT, P Routine 12/23/19 3:13 PM CDT Malignant Neoplasm Of Nasopharynx (HCC) SENSORY MOTOR EXAM Routine 12/17/2024 1:32 PM CDT Palsy Abducens Nerve Right AUTOMATED VF - LIMITED - OU - BOTH EYES Routine 12/17/2024 12:25 PM CDT Ptosis Brow OPHTHALMOLOGY IMAGE EXAM Routine 12:00 AM CDT MAGNESIUM, S Routine 10/31/2024 5:29 AM IMPLEMENTATION CONSULTANT RENAL FUNCTION PANEL, S Routine 10/31/19 5:29 AM IMPLEMENTATION CONSULTANT CBC NO CALL BACK, REFLEX T/S Routine 10/31/2024 5:29 AM IMPLEMENTATION CONSULTANT OTORHINOLARYNGOLOGY IMAGE EXAM Routine 10/31/2024 12:00 AM IMPLEMENTATION CONSULTANT FL SWALLOW FUNCTION WITH VIDEO AND SPEECH OR OT FOR RST RAD - Routine (most inpatients and all outpatients) 10/30/2024 8:47 AM IMPLEMENTATION CONSULTANT RENAL FUNCTION PANEL, S Routine 10/30/19 4:43 AM IMPLEMENTATION CONSULTANT CBC NO CALL BACK, REFLEX T/S Routine 10/30/2024 4:43 AM IMPLEMENTATION CONSULTANT from Last 3 Months Results * Thyroid Function [facility] (01/20/2025 10:08 AM CDT) Pathologist [facility] TSH, Sensitive 3.1 0.3 - 4.2 mIU/L 01/20/2025 12:10 PM CDT DTL Blood (Blood, Venous) 01/20/2025 10:08 AM CDT 01/20/2025 11:09 AM CDT German Pierce P.A.-C. LAB BLOOD ADD-ON Final Result [facility] [address] [place] [address], [facility] [address] [place] [address] * (ABNORMAL) CBC with Differential, Blood (01/20/2025 10:08 AM CDT) Pathologist [facility] Hemoglobin 13.2 13.2 - 16.6 g/dL 01/20/2025 [...] 10:08 AM CDT 01/20/2025 10:34 AM CDT us German ColvinC. LAB BLOOD ADD-ON Final Result [facility] [address] [place] [address], [facility] DTL [facility] [address] [place] [address] DHPM [facility] [address] [place] [address] * Magnesium (01/20/2025 10:08 AM CDT) Only the most recent of2 resultswithin the time period is included. Magnesium, S 2.3 1.7 - 2.3 mg/dL 01/20/2025 12:10 PM CDT DTL Blood (Blood, Venous) 01/20/2025 10:08 AM CDT 01/20/2025 11:09 AM CDT German ColvinC. LAB BLOOD ADD-ON Final Result [facility] [address] [place] [address], [facility] DTL [facility] [address] [place] [address] * (ABNORMAL) Comprehensive Metabolic Panel (01/20/2025 10:08 AM CDT) Pathologist [facility] Potassium, S 4.0 3.6 - 5.2 mmol/L [...] 10:08 AM CDT 01/20/2025 11:09 AM CDT German Pierce P.A.-C. LAB BLOOD ADD-ON Final Result Performing Organization Address [facility] Co de Phone Number [facility] [address] [place] [address], [facility] DTL [facility] [address] [place] [address] * Sensory Motor Exam (01/15/2025 3:53 PM CDT) Narrative OPHTHALMOLGY NON-IMAGING ORDERS - 01/15/2025 4:08 PM CDT I have reviewed the medical record and the sensorimotor exam documentation. The findings are consistent with my previously initiated care plan. I agree with the impression, plan, and follow up as entered by the forge operator helper. Carlin Toure M.D. OPHTH TOMOGRAPHY Final Resul t Performing Organization Address [facility] de Phone Number [facility] OPHTHALMOLGY NON-IMAGING ORDERS * Eye External-Ophthalmology Image Exam (01/15/2025 12:00 AM CDT) Only the most recent of2 resultswithin the time period is included. Narrative [facility] - 01/15/2025 4:09 PM CDT This order has been created and auto-finalized to support the import of images acquired without order. The clinical documentation to support these images can be found on the encounter that produced images. Provider Not In System IMG NON RAD IMAGING PROCE DURES Final Result Performing Organization Address [facility] Co de Phone Number [facility] NA * CT Temporal Bone without IV Contrast (01/05/2025 11:49 AM CDT) Anatomical Region Laterality Modality Head, Neuroradiology RST LOS , Neuroradiology ARZ LOS, Neuroradiology CTKwesi [facility] N/A Computed Tomography, Compute d Tomography Impressions [...] areas along right tegmentympani. Quirino Jackson M.D. [facility] PROCEDURES Final Result * (ABNORMAL) CBC-Preop with reflex anemia panel [...] AM CDT 01/05/2025 10:33 AM CDT Narrative [facility] - 01/05/2025 11:26 AM CDT Specimen Information: Specimen ID: [id number] Specimen Type: Blood Specimen Collection Start Date: 01/05/2025 9:58 AM Specimen Received Date: 01/05/2025 10:33 AM Specimen ID: [id number] Specimen Type: Blood Specimen Collection Start Date: 01/05/2025 9:58 AM Specimen Received Date: 01/05/2025 10:21 AM Xochilt Moser APRN, C.N.P., D.N.P. LAB BLOO D ADD-ON Final Result Performing Organization Address [facility] Co de Phone Number [facility] [address] [place] [address] * Creatinine with Estimated GFR (01/05/2025 9:58 AM CDT) Creatinine 1.32 0.74 - 1.35 mg/dL 01/05/2025 10:58 AM CDT DTL Estimated GFR (eGFR) 63 >=60 mL/min/BSA 01/05/2025 10:58 AM CDT DTL Comment: Estimated GFR calculated using the 2020 CKD_EPI creatinine equation. Blood (Blood, Venous) 01/05/2025 9:58 AM CDT 01/05/2025 10:33 AM CDT Quirino Jackson M.D. LAB BLOOD ADD-ON Final Result Performing Organization Address [facility] Co de Phone Number [address] [place] [address] * Nasal Endoscopy-Otorhinolaryngology Image Exam (01/05/2025 9:06 AM CDT) Only the most recent of2 resultswithin the time period is included. Narrative [facility] - 01/05/2025 9:06 AM CDT This order has been created and auto-finalized to support the import of images acquired without order. The clinical documentation to support these images can be found on the encounter that produced images. us Provider Not In System IMG NON RAD IMAGING PROCE HAILY Final Result Performing Organization Address [facility] de Phone Number II NA * (ABNORMAL) EBV DNA Detect/Quant (12/22/2024 3:13 PM CDT) EBV DNA Detect/Quant, P 116(A) Undetected IU/mL 12/23/2024 3:59 PM CDT [facility] Comment: Result in log IU/mL is 2.06. ----ADDITIONAL INFORMATION---- The quantification range of this assay is 35 to 100,000,000 IU/mL (1.54 log to 8.00 log IU/mL). Testing was performed using the nathalia EBV test ([employer] Blood (Blood, Venous) 12/22/2024 3:13 PM CDT 12/22/2024 5:51 PM CDT Rik Browning M.D., M.S. LAB MICROBIOLOG Y - BLOOD ORDERABLES Final Result Performing Organization Address [facility] de Phone Number [facility] [address] [place] [address] [facility] [address] [place] [address] [place] [address] * Sensory Motor Exam (12/17/2024 1:32 PM CDT) Narrative OPHTHALMOLGY NON-IMAGING ORDERS - 12/17/2024 1:52 PM CDT I have reviewed the medical record and the sensorimotor exam documentation. The findings are consistent with my previously initiated care plan. I agree with the impression, plan, and follow up as entered by the forge operator helper. Notes See note. Elieser Almonte M.D., Ph.D. OPHTH TOMOGRAPHY Final R esult Performing Organization Address [facility] de Phone Number OPHTHALMOLGY NON-IMAGING ORDERS * Automated VF - Limited - OU - Both Eyes (12/17/2024 12:25 PM CDT) Narrative OPHTHALMOLOGY IMAGING EXAM - 12/17/2024 1:52 PM CDT Ptosis See interpretation from [employer]. us Quirino Jackson M.D. OPHTH VISUAL FIELD Final Result OPHTHALMOLOGY IMAGING EXAM * (ABNORMAL) Renal Function Panel (10/31/2024 5:29 AM IMPLEMENTATION CONSULTANT) Only the most recent of2 resultswithin the time period is included. Potassium, S 4.0 3.6 - 5.2 mmol/L 10/31/2024 6:46 AM IMPLEMENTATION CONSULTANT DTL Sodium, S 143 135 - 145 mmol/L 10/31/2024 6:46 AM IMPLEMENTATION CONSULTANT DTL Chloride, S 109(H) 98 - 107 mmol/L 10/31/2024 6:46 AM IMPLEMENTATION CONSULTANT DTL Bicarbonate, S 27 22 - 29 mmol/L 10/31/2024 6:46 AM IMPLEMENTATION CONSULTANT DTL Anion Gap 7 7 - 15 10/31/2024 6:46 AM IMPLEMENTATION CONSULTANT DTL BUN (Blood Urea Nitrogen), S 14 8 - 24 mg/dL 10/31/2024 6:46 AM IMPLEMENTATION CONSULTANT DTL Creatinine 1.16 0.74 - 1.35 mg/dL 10/31/2024 6:46 AM IMPLEMENTATION CONSULTANT DTL Estimated GFR (eGFR) 73 >=60 mL/min/BSA 10/31/2024 6:46 AM IMPLEMENTATION CONSULTANT DTL Comment: Estimated GFR calculated using the 2020 CKD_EPI creatinine equation. Calcium, Total, S 8.4(L) 8.6 - 10.0 mg/dL 10/31/2024 6:46 AM IMPLEMENTATION CONSULTANT DTL Glucose, S 92 70 - 140 mg/dL 10/31/2024 6:46 AM IMPLEMENTATION CONSULTANT DTL Albumin, S 3.3(L) 3.5 - 5.0 g/dL 10/31/2024 6:46 AM IMPLEMENTATION CONSULTANT DTL Phosphorus (Inorganic), S 3.2 2.5 - 4.5 mg/dL 10/31/2024 6:46 AM IMPLEMENTATION CONSULTANT DTL Blood (Blood, Venous) 10/31/2024 5:29 AM IMPLEMENTATION CONSULTANT 10/31/2024 6:22 AM IMPLEMENTATION CONSULTANT us Trever Newman M.D. LAB BLOOD ADD-ON Final Re sult [facility] [address] [place] [address], [facility] DTL [facility] [address] [place] [address] * (ABNORMAL) CBC no call back, reflex T/S HGB <8 (10/31/2024 5:29 AM IMPLEMENTATION CONSULTANT) Only the most recent of2 resultswithin the time period is included. Hemoglobin 11.6(L) 13.2 - 16.6 g/dL 10/31/2024 6:16 AM IMPLEMENTATION CONSULTANT DTL Hematocrit 35.7(L) 38.3 - 48.6 % 10/31/2024 6:16 AM IMPLEMENTATION CONSULTANT DTL Erythrocytes 4.06(L) 4.35 - 5.65 x10(12)/L 10/31/2024 6:16 AM IMPLEMENTATION CONSULTANT DTL MCV 87.9 78.2 - 97.9 fL 10/31/2024 6:16 AM IMPLEMENTATION CONSULTANT DTL RBC Distrib Width 13.4 11.8 - 14.5 % 10/31/2024 6:16 AM IMPLEMENTATION CONSULTANT DTL Platelet Count 247 135 - 317 x10(9)/L 10/31/2024 6:16 AM IMPLEMENTATION CONSULTANT DTL Leukocytes 5.0 3.4 - 9.6 x10(9)/L 10/31/2024 6:16 AM IMPLEMENTATION CONSULTANT DTL Neutrophils 3.56 1.56 - 6.45 x10(9)/L 10/31/2024 6:15 AM IMPLEMENTATION CONSULTANT DHPM Lymphocytes 0.69(L) 0.95 - 3.07 x10(9)/L 10/31/2024 6:16 AM IMPLEMENTATION CONSULTANT DTL Monocytes 0.51 0.26 - 0.81 x10(9)/L 10/31/2024 6:16 AM IMPLEMENTATION CONSULTANT DTL Eosinophils 0.19 0.03 - 0.48 x10(9)/L 10/31/2024 6:16 AM IMPLEMENTATION CONSULTANT DTL Basophils 0.05 0.01 - 0.08 x10(9)/L 10/31/2024 6:16 AM IMPLEMENTATION CONSULTANT DTL Blood (Blood, Venous) 10/31/2024 5:29 AM IMPLEMENTATION CONSULTANT 10/31/2024 6:06 AM IMPLEMENTATION CONSULTANT Trever Newman M.D. LAB BLOOD NON ADD-ON Odalis salgado Result [facility] [address] [place] [address], [facility] DTL [facility] [address] [place], [place] [id number] [place] [address] [address] [place] [address] * FL Swallow Function with Video and Speech or OT (10/30/2024 8:47 AM IMPLEMENTATION CONSULTANT) Anatomical Region Laterality Modality Gastro Intestinal, Abdominal RST LOS, Abdominal ARZ LOS, Abdominal FLA LOS N/A Digital Radiography Impressions 10/30/2024 10:35 AM IMPLEMENTATION CONSULTANT 1. Aspiration with thin liquid consistency. 2. Laryngeal penetration to the level of the vocal cords with mildly thickened liquid consistency. 3. Residue present with all consistencies tested. Please see the speech pathology report for further details and recommendations. Narrative 10/30/2024 10:35 AM IMPLEMENTATION CONSULTANT EXAM: FL SWALLOW FUNCTION WITH VIDEO AND SPEECH OR OT FOR RST COMPARISON: Video swallow 11/19/2023 FINDINGS: Fluoroscopic video swallow study performed with thin liquid, mildly thickened liquid, puree solid and regular solid barium consistencies administered by speech pathology. Thin liquid (series 1-6, 11): Aspiration (series 4, 11). Vallecular and piriform residue. Mildly thickened liquid (series 7-8, 14-17): Penetration to the level of the vocal cords (series 8). Vallecular and piriform residue. Puree solid (series 9-10): Vallecular and piriform residue. Regular solid (series 12-13): Vallecular and piriform residue. Procedure Note Deep Russell M.D., Ph.D. - 10/30/2024 EXAM: FL SWALLOW FUNCTION WITH VIDEO AND SPEECH OR OT FOR RST COMPARISON: Video swallow 11/19/2023 FINDINGS: Fluoroscopic video swallow study performed with thin liquid,mildly thickened liquid, puree solid and regular solid bariumconsistencies administered by speech pathology. Thin liquid (series 1-6, 11): Aspiration (series 4, 11). Vallecular andpiriform residue. Mildly thickened liquid (series 7-8, 14-17): Penetration to the level ofthe vocal cords (series 8). Vallecular and piriform residue. Puree solid (series 9-10): Vallecular and piriform residue. Regular solid (series 12-13): Vallecular and piriform residue. IMPRESSION: 1. Aspiration with thin liquid consistency. 2. Laryngeal penetration to the level of the vocal cords with mildlythickened liquid consistency. 3. Residue present with all consistencies tested. Please see the speech pathology report for further details andrecommendations. Ramo Gill M.D. IMPeggy FLUOROSCOPY PROCEDURE S Final Result from Last 3 Months Additional Health Concerns Active Problems Noted Date Diagnosed Date Autogenerated Problem 01/05/2025 Infection Onset Date Last Indicated Protective Environment 01/21/2025 5 Insurance MEDICARE [facility] Advance Directives For more information, please contact: [phone] * Full Code (Latest Code Status on File) Date Activated Date Inactivated Comments 10/28/2024 8:05 PM 10/31/2024 5:16 PM Question Answer Comments Full Code: Discussed * Full Code Date Activated Date Inactivated Comments 10/12/2022 8:03 PM 10/13/2022 1:16 PM Question Answer Comments Full Code: Discussed Care Teams Truck Rental Service Attendant Relationship Specialty Start Date End Date Elsewhere, Pcp PCP - General Internal Medicine 10/13/22
--- OUTSIDE RECORDS SUMMARY | 2025-01-27 17:05 | XMS_ITS | Encounter Summary ---
Author Organization [facility] Address [address] [place] [address] Care Team Providers Care Real Estate Management Specialist Name Role Phone Elsewhere, Pcp Primary Care Provider Unavailabl e Encounter Details Date Type Department Care Team (Late st Contact Info) Description 12/19/2024 Documentation Department of Otorhinolaryngology in [place], [place] [address] [place] [phone] Quirino Jackson M.D. [address] [place] [phone] Social History Tobacco Use Types Packs/Day Years Used Date Smoking Tobacco: Never Passive Smoke Exposure: Never Smokeless Tobacco: Never Alcohol Use Standard Drinks/Week Comments Not Currently 1 (1 standard drink = 0.6 oz pure alcohol) patient states no alcohol in 6+months [facility] Utilities Answer Date Recorded In the [...] How often do you attend chur or episcopalian services? Patient declined 08/29/2022 Do you belong to any clubs o r organizations such as mormonism groups, unions, fraternal or athletic groups, or [...] Answer Date Recorded PHQ-2 Score 0 02/13/2019 [facility] of Occupat ional Health - Occupational Stress [...] your living situation today? I have a [facility] place to live 10/28/2024 Education Answer Date Recorded What is the highest level of school you have completed or the highest degree you have received? Associate degree: occupational, technical, or vocational program 08/29/2022 Sex and Gender Information Value Date Recorded Sex Assigned at Male 11/04/2018 9:57 AM FIELD ADMINISTRATIVE ASSISTANT Legal Sex Male 4:48 PM FIELD ADMINISTRATIVE ASSISTANT Gender Identity Male 11/04/2018 9:57 AM FIELD ADMINISTRATIVE ASSISTANT Sexual Orientation Straight 11/04/2018 9: 57 AM FIELD ADMINISTRATIVE ASSISTANT documented as of this encounter Progress Notes * Quirino Jackson M.D. - 12/19/2024 3:10 PM CDT Images from the original note were not included. Patient had visual field testing performed 12/17/2024. Results were displayed below. This shows bilateral superior and lateral visual field obstruction. Lateral visual field obstruction is improved on the right by 20?? with correction of the brow to the normal position. 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 The right brow is sitting much lower than the left, below thesuperior orbital rim and obstructing the patient's vision. Treatment would be mid forehead brow lift on the right. documented in this encounter Plan of Treatment Upcoming Encounters Date Type Department Care Team (Latest Contact Info) Description 01/28/2025 12:20 PM CDT Lab Department of Laboratory Medicine and Pathology, [facility] in [place], [place] [address] [place] [phone] German Pierce P.A.-C. [address] [place] [phone] 01/28/2025 2:30 PM CDT Infusion Department of Oncology in [place], [place] [address] [place] [phone] German Pierce P.A.-C. [address] [place] [phone] 01/30/2025 4:28 PM CDT Hospital Encounter Post Anesthesia Care Unit in [place], [place] [address] [place] [phone] Quirino Jackson M.D. [address] [place] [phone] 01/30/2025 4:28 PM CDT - 01/30/2025 7:18 PM CDT Surgery RST ROMB MAIN OR [address] [place] [phone] Quirino Jackson M.D. [address] [place] [phone] INSERTION CHITIMACHA CHAIN WEIGHT EYELID 02/09/2025 1:45 PM CDT Office Visit Department of Otorhinolaryngology in [place], [place] [address] [place] [phone] Quirino Bobo M.D. [address] [place] [phone] 02/09/2025 3:00 PM CDT Office Visit [facility] in [place], [place] [address] [place] [phone] Quirino Jackson M.D. [address] [place] [phone] 02/10/2025 11:00 AM CDT Lab Department of Laboratory Medicine and Pathology, [facility] in [place], [place] [address] [place] [phone] German Pierce, P.ACourtney-CCourtney [address] [place] [phone] 02/10/2025 1:00 PM CDT Office Visit Department of Oncology in [place], [place] [address] [place] [phone] Rik Aguirre M.D., M.S. [address] [place] [phone] 02/13/2025 9:45 AM CDT Infusion Department of Oncology in [place], [place] [address] [place] [phone] German Pierce, PCourtneyA.-CCourtney [address] [place] [phone] 02/19/2025 10:00 AM CDT Lab Department of Laboratory Medicine and Pathology, [facility] in [place], [place] [address] [place] [phone] German Pierce P.A.-C. [address] [place] [phone] 02/19/2025 12:00 PM CDT Infusion Department of Oncology in [place], [place] [address] [place] [phone] German Pierce P.A.-C. [address] [place] [phone] 03/03/2025 11:00 AM CDT Lab Department of Laboratory Medicine and Pathology, [facility] in [place], [place] [address] [place] [phone] German Pierce P.A.-C. [address] [place] [phone] 03/03/2025 1:00 PM CDT Office Visit Department of Oncology in [place], [place] [address] [place] [phone] Rik Aguirre M.D., M.S. [address] [place] [phone] 03/04/2025 7:30 AM CDT Infusion Department of Oncology in [place], [place] [address] [place] [phone] German Pierce P.A.-C. [address] [place] [phone] 03/11/2025 10:00 AM CDT Lab Department of Laboratory Medicine and Pathology, [facility], in [place], [place] [address] [place] [phone] German Pierce P.A.-C. [address] [place] [phone] 03/11/2025 12:00 PM CDT Infusion Department of Oncology in [place], [place] [address] [place] [phone] German Pierce P.A.-C. [address] [place] [phone] 03/24/2025 7:10 AM CDT Lab Department of Laboratory Medicine and Pathology, [facility] in [place], [place] [address] [place] [phone] German Pierce P.A.-C. [address] [place] [phone] 03/24/2025 9:20 AM CDT Office Visit Department of Oncology in [place], [place] [address] [place] [phone] Rik Aguirre M.D., M.S. [address] [place] [phone] 03/24/2025 10:15 AM CDT Infusion Department of Oncology in [place], [place] [address] [place] [phone] German Pierce P.A.-C. [address] [place] [phone] 04/01/2025 11:00 AM CDT Lab Department of Laboratory Medicine and Pathology, [facility] in [place], [place] [address] [place] [phone] German Pierce P.A.-C. [address] [place] [phone] 04/01/2025 1:00 PM CDT Infusion Department of Oncology in [place], [place] [address] [place] [phone] German Pierce P.A.-C. [address] [place] [phone] Scheduled Procedures Name Priority Associated Diagnoses Date/Ti [...] documented as of this encounter Care Teams Real Estate Management Specialist Relationship Specialty Start Date End Date Elsewhere, Pcp PCP - General Internal Medicine 10/13/22 documented as of this encounter
--- OUTSIDE RECORDS SUMMARY | 2025-01-27 17:05 | XMS_ITS | Encounter Summary ---
Author Organization [facility] Address [address] [place] [address] Care Team Providers Care Group Underwriter Name Role Phone Elsewhere, Pcp Primary Care Provider Unavailabl e Reason for Visit * Reason Onset Date Comments Appt Request 12/24/2024 return Encounter Details Date Type Department Care Team (Latest Contact Info) Description 12/24/2024 Clinical Communication Department of Otorhinolaryngology in [place], [place] [address] [place] [phone] Keke Mckeon M.D. [address] [place] [phone] Appt Request (return) Social History Tobacco Use Types Packs/Day Years Used Date Smoking Tobacco: Never Passive Smoke Exposure: Never Smokeless Tobacco: Never Alcohol Use Standard Drinks/Week Comments Not Currently 1 (1 standard drink = 0.6 oz pure alcohol) patient states no alcohol in 6+months [facility] Utilities Answer Date Recorded In the past 12 months has [facility] electric, gas, oil, or water company threatened [...] week 08/29/2022 How often do you attend [facility] or scientology services? Patient declined 08/29/2022 Do you belong to any clubs o r organizations such as denominational groups, unions, fraternal or athletic groups, or [...] Answer Date Recorded PHQ-2 Score 0 02/13/2019 [facility] of Occupat ional Health - Occupational Stress [...] your living situation today? I have a [facility] place to live 10/28/2024 Education Answer Date Recorded What is the highest level of school you have completed or the highest degree you have received? Associate degree: occupational, technical, or vocational program 08/29/2022 Sex and Gender Information Value Date Recorded Sex Assigned at Male 11/04/2018 9:57 AM SPECIAL CLASS WELDER Legal Sex Male 4:48 PM SPECIAL CLASS WELDER Gender Identity Male 11/04/2018 9:57 AM SPECIAL CLASS WELDER Sexual Orientation Straight 11/04/2018 9: 57 AM SPECIAL CLASS WELDER documented as of this encounter Plan of Treatment Upcoming Encounters Date Type Department Care Team (Latest Contact Info) Description 01/28/2025 12:20 PM CDT Lab Department of Laboratory Medicine and Pathology, [facility], in [place], [place] [address] [place] [phone] German Pierce P.A.-C. [address] [place] [phone] 01/28/2025 2:30 PM CDT Infusion Department of Oncology in [place], [place] [address] [place] [phone] German Pierce P.A.-C. [address] [place] [phone] 01/30/2025 4:28 PM CDT Hospital Encounter Post Anesthesia Care Unit in [place], [place] [address] [place] [phone] Quirino Jackson M.D. [address] [place] [phone] 01/30/2025 4:28 PM CDT - 01/30/2025 7:18 PM CDT Surgery RST ROMB MAIN OR [address] [place] [address] [phone] Quirino Jackson M.D. [address] [place] [phone] INSERTION [employer] [place] [employer] [place] CHAIN WEIGHT EYELID 02/09/2025 1:45 PM CDT Office Visit Department of Otorhinolaryngology in [place], [place] [address] [place] [phone] Quirino Bobo M.D. [address] [place] [phone] 02/09/2025 3:00 PM CDT Office Visit [facility] in [place], [place] [address] [place] [phone] Quirino Jackson M.D. [address] [place] [phone] 02/10/2025 11:00 AM CDT Lab Department of Laboratory Medicine and Pathology, [facility] in [place], [place] [address] [place] [phone] German Pierce P.A.-CCourtney [address] [place] [phone] 02/10/2025 1:00 PM CDT Office Visit Department of Oncology in [place], [place] [address] [place] [phone] Rik Aguirre M.D., M.S. [address] [place] [phone] 02/13/2025 9:45 AM CDT Infusion Department of Oncology in [place], [place] [address] [place] [phone] German Pierce P.A.-CCourtney [address] [place] [phone] 02/19/2025 10:00 AM CDT Lab Department of Laboratory Medicine and Pathology, [facility], in [place], [place] [address] [place] [phone] German Pierce P.A.-CCourtney [address] [place] [phone] 02/19/2025 12:00 PM CDT Infusion Department of Oncology in [place], [place] [address] [place] [phone] German Pierce P.A.-CCourtney [address] [place] [phone] 03/03/2025 11:00 AM CDT Lab Department of Laboratory Medicine and Pathology, [facility] in [place], [place] [address] [place] [phone] German Pierce P.A.-C. [address] [place] [phone] 03/03/2025 1:00 PM CDT Office Visit Department of Oncology in [place], [place] [address] [place] [phone] Rik Aguirre M.D., M.S. [address] [place] [phone] 03/04/2025 7:30 AM CDT Infusion Department of Oncology in [place], [place] [address] [place] [phone] German Pierce P.A.-C. [address] [place] [phone] 03/11/2025 10:00 AM CDT Lab Department of Laboratory Medicine and Pathology, [facility] in [place], [place] [address] [place] [phone] German Pierce P.A.-C. [address] [place] [phone] 03/11/2025 12:00 PM CDT Infusion Department of Oncology in [place], [place] [address] [place] [phone] German Pierce P.A.-C. [address] [place] [phone] 03/24/2025 7:10 AM CDT Lab Department of Laboratory Medicine and Pathology, [facility], in [place], [place] [address] [place] [phone] German Pierce P.A.-Wade [address] [place] [phone] 03/24/2025 9:20 AM CDT Office Visit Department of Oncology in [place], [place] [address] [place] [phone] Rik Aguirre M.D., M.S. [address] [place] [phone] 03/24/2025 10:15 AM CDT Infusion Department of Oncology in [place], [place] [address] [place] [phone] German Pierce P.A.-Wade [address] [place] [phone] 04/01/2025 11:00 AM CDT Lab Department of Laboratory Medicine and Pathology, [facility], in [place], [place] [address] [place] [phone] German Pierce P.A.-CCourtney [address] [place] [phone] 04/01/2025 1:00 PM CDT Infusion Department of Oncology in [place], [place] [address] [place] [phone] German Pierce P.A.-CCourtney [address] [place] [phone] Scheduled Procedures Name Priority Associated Diagnoses Date/Ti me INSERTION GOLD WEIGHT EYELID Paralysis Facial 01/30/2025 4:28 PM CDT REPAIR ECTROPION Paralysis Facial 01/30/2025 4:28 PM CDT GRAFT FASCIA ANUEL Paralysis Facial 01/30/2025 4:28 PM CDT documented as of this encounter Visit Diagnoses Not on filedocumented in this encounter Additional Health Concerns Infection Onset Date Last Indicated Resolved Time Protective Environment 01/21/2025 01/21/2025 Assessment Noted Time PHQ-9 Depression Total Score: 5 12/20/19 19 2:49 PM CDT documented as of this encounter Care Teams Group Underwriter Relationship Specialty Start Date End Date Elsewhere, Pcp PCP - General Internal Medicine 10/13/22 documented as of this encounter
--- OUTSIDE RECORDS SUMMARY | 2025-01-27 17:05 | XMS_ITS | Encounter Summary ---
Author Organization [facility] Address [address] [place] [phone] Care Team Providers Care Sales And In Home Delivery Specialist Name Role Phone Elsewhere, Pcp Primary Care Provider Unavailabl e Reason for Referral * Outpatient (Routine) - Closed Specialty Diagnoses / Procedures Referred By Luz wu Referred To Contact Oncology Rik Aguirre M.D., M.S. [address] [place] [phone] Phone: tel: fax: [facility] Referral ID Status Reason Start Date Expiration Date Visits Re quested Visits Authorized [id number] Closed 12/31/2024 07/02/2026 1 1 Scheduling Instructions Any provider within 2 weeks or earlier. Encounter Details Date Type Department Care Team (Late st Contact Info) Description 12/31/2024 Orders Only Department of Oncology in [place], [place] [address] [place] [phone] Rik Aguirre M.D., M.S. 200 [place] [phone] Social History Tobacco Use Types Packs/Day Years Used Date Smoking Tobacco: Never Passive Smoke Exposure: Never Smokeless Tobacco: Never Alcohol Use Standard Drinks/Week Comments Not Currently 1 (1 standard drink = 0.6 oz pure alcohol) patient states no alcohol in 6+months [facility] Utilities Answer Date Recorded In the past 12 months has e [employer], gas, oil, or water [employer] threatened to shut off services in your [...] How often do you attend [facility] or religion services? Patient declined 08/29/2022 Do you belong to any clubs o r organizations such as synagogue groups, unions, fraternal or athletic groups, or [...] Answer Date Recorded PHQ-2 Score 0 02/13/2019 [facility] of Occupat ional Health - Occupational [...] your living situation today? [facility] 10/28/2024 Education Answer Date Recorded What is the highest level of school you have completed or the highest degree you have received? Associate degree: occupational, technical, or vocational program 08/29/2022 Sex and Gender Information Value Date Recorded Sex Assigned at Male 11/04/2018 9:57 AM BAND TUMBLER Legal Sex Male 4:48 PM BAND TUMBLER Gender Identity Male 11/04/2018 9:57 AM BAND TUMBLER Sexual Orientation Straight 11/04/2018 9: 57 AM BAND TUMBLER documented as of this encounter Plan of Treatment Upcoming Encounters Date Type Department Care Team (Latest Contact Info) Description 01/28/2025 12:20 PM CDT Lab Department of Laboratory Medicine and Pathology, [facility], in [place], [place] [address] [place] [phone] German Pierce P.A.-C. [address] [place] [phone] 01/28/2025 2:30 PM CDT Infusion Department of Oncology in [place], [place] [address] [place] [phone] German Pierce P.ACourtney-Wade [address] [place] [phone] 01/30/2025 4:28 PM CDT Hospital Encounter Post Anesthesia Care Unit in [place], [place] [address] [place] [phone] Quirino Jackson M.D. [address] [place] [phone] 01/30/2025 4:28 PM CDT - 01/30/2025 7:18 PM CDT Surgery RST ROMB MAIN OR [address] [place] [phone] Quirino Jackson M.D. [address] [place] [phone] INSERTION [place] CHAIN WEIGHT EYELID 02/09/2025 1:45 PM CDT Office Visit Department of Otorhinolaryngology in [place], [place] [address] [place] [phone] Quirino Bobo M.D. [address] [place] [phone] 02/09/2025 3:00 PM CDT Office Visit [facility] in [place], [place] [address] [place] [phone] Quirino Jackson M.D. [address] [place] [phone] 02/10/2025 11:00 AM CDT Lab Department of Laboratory Medicine and Pathology, [facility] in [place], [place] [address] [place] [phone] German Pierce PZofiaCCourtney [address] [place] [phone] 02/10/2025 1:00 PM CDT Office Visit Department of Oncology in [place], [place] [address] [place] [phone] Rik Aguirre M.D., M.S. [address] [place] [phone] 02/13/2025 9:45 AM CDT Infusion Department of Oncology in [place], [place] [address] [place] [phone] German Pierce P.A.-CCourtney [address] [place] [phone] 02/19/2025 10:00 AM CDT Lab Department of Laboratory Medicine and Pathology, [facility] in [place], [place] [address] [place] [phone] German Pierce P.A.-C. [address] [place] [phone] 02/19/2025 12:00 PM CDT Infusion Department of Oncology in [place], [place] [address] [place] [phone] German Pierce P.A.-C. [address] [place] [phone] 03/03/2025 11:00 AM CDT Lab Department of Laboratory Medicine and Pathology, [place], [place] [address] [place] [phone] German Pierce P.A.-C. [address] [place] [phone] 03/03/2025 1:00 PM CDT Office Visit Department of Oncology in [place], [place] [address] [place] [phone] Rik Aguirre M.D., M.S. [address] [place] [phone] 03/04/2025 7:30 AM CDT Infusion Department of Oncology in [place], [place] [address] [place] [phone] German Pierce P.A.-C. [address] [place] [phone] 03/11/2025 10:00 AM CDT Lab Department of Laboratory Medicine and Pathology, [facility] in [place], [place] [address] [place] [phone] German Pierce P.A.-C. [address] [place] [phone] 03/11/2025 12:00 PM CDT Infusion Department of Oncology in [place], [place] [address] [place] [phone] German Pierce P.A.-C. [address] [place] [phone] 03/24/2025 7:10 AM CDT Lab Department of Laboratory Medicine and Pathology, [facility] in [place], [place] [address] [place] [phone] German Pierce P.A.-C. [address] [place] [phone] 03/24/2025 9:20 AM CDT Office Visit Department of Oncology in [place], [place] [address] [place] [phone] Rik Aguirre M.D., M.S. [address] [place] [phone] 03/24/2025 10:15 AM CDT Infusion Department of Oncology in [place], [place] [address] [place] [phone] German Pierce P.A.-Wade [address] [place] [phone] 04/01/2025 11:00 AM CDT Lab Department of Laboratory Medicine and Pathology, [facility], in [place], [place] [address] [place] [phone] German Pierce P.A.-C. [address] [place] [phone] 04/01/2025 1:00 PM CDT Infusion Department of Oncology in [place], [place] [address] [place] [phone] Sandra-German Waldron P.A.-C. [address] [place] [phone] Scheduled Procedures Name Priority Associated Diagnoses Date/Ti me INSERTION GOLD WEIGHT EYELID Paralysis Facial 01/30/2025 4:28 PM CDT REPAIR ECTROPION Paralysis Facial 01/30/2025 4:28 PM CDT GRAFT FASCIA ANUEL Paralysis Facial 01/30/2025 4:28 PM CDT Scheduled Referrals Name Type Priority Associated Diagnoses Orde r Schedule Oncology office visit (clinic) Outpatient Referral Routine Expected: 01/14/2025, Expires: 04/01/2026 documented as of this encounter Visit Diagnoses Not on filedocumented in this encounter Additional Health Concerns Assessment Noted Time PHQ-9 Depression Total Score: 5 12/20/19 19 2:49 PM CDT documented as of this encounter Care Teams Sales And In Home Delivery Specialist Relationship Specialty Start Date End Date Elsewhere, Pcp PCP - General Internal Medicine 10/13/22 documented as of this encounter
--- OUTSIDE RECORDS SUMMARY | 2025-01-27 17:05 | XMS_ITS | Encounter Summary ---
Author Organization [facility] Address [address] [place] [address] Care Team Providers Care Primer Expeditor And Drier Name Role Phone Elsewhere, Pcp Primary Care Provider Unavailabl e Encounter Details Date Type Department Care Team (Late st Contact Info) Description 01/02/2025 Clinical Communication Department of Oncology in [place], [place] [address] [place] [phone] Rik Aguirre M.D., M.S. [address] [place] [phone] Social History Tobacco Use Types Packs/Day Years Used Date Smoking Tobacco: Never Passive Smoke Exposure: Never Smokeless Tobacco: Never Alcohol Use Standard Drinks/Week Comments Not Currently 1 (1 standard drink = 0.6 oz pure alcohol) patient states no alcohol in 6+months [facility] Utilities Answer Date Recorded In the past 12 months has e [employer], gas, oil, or water [employer] threatened to shut off services in your [...] week 08/29/2022 How often do you attend [facility] or sikhism services? Patient declined 08/29/2022 Do you belong to any clubs o r organizations such as restorationism groups, unions, fraternal or athletic groups, or [...] Answer Date Recorded PHQ-2 Score 0 02/13/2019 [facility] [place] of Occupat ional Health - Occupational Stress [...] your living situation today? I have a [facility] place to live 10/28/2024 Education Answer Date Recorded What is the highest level of school you have completed or the highest degree you have received? Associate degree: occupational, technical, or vocational program 08/29/2022 Sex and Gender Information Value Date Recorded Sex Assigned at Male 11/04/2018 9:57 AM [employer] Legal Sex Male 4:48 PM [employer] Gender Identity Male 11/04/2018 9:57 AM [employer] Sexual Orientation Straight 11/04/2018 9: 57 AM [employer] documented as of this encounter Plan of Treatment Upcoming Encounters Date Type Department Care Team (Latest Contact Info) Description 01/28/2025 12:20 PM CDT Lab Department of Laboratory Medicine and Pathology, [facility], in [place], [place] [address] [place] [phone] German Pierce P.A.-C. [address] [place] [phone] 01/28/2025 2:30 PM CDT Infusion Department of Oncology in [place], [place] [address] [place] [phone] German Pierce P.A.-C. [address] [place] [phone] 01/30/2025 4:28 PM CDT Hospital Encounter Post Anesthesia Care Unit in [place], [place] [address] [place] [phone] Quirino Jackson M.D. [address] [place] [phone] 01/30/2025 4:28 PM CDT - 01/30/2025 7:18 PM CDT Surgery [facility] OR [address] [place] [phone] Quirino Jackson M.D. [address] [place] [phone] INSERTION [place] [facility] WEIGHT EYELID 02/09/2025 1:45 PM CDT Office Visit Department of Otorhinolaryngology in [place], [place] [address] [place] [phone] Quirino Bobo M.D. [address] [place] [phone] 02/09/2025 3:00 PM CDT [facility] in [place], [place] [address] [place] [phone] Quirino Jackson M.D. [address] [place] [phone] 02/10/2025 11:00 AM CDT Lab Department of Laboratory Medicine and Pathology, [facility] in [place], [place] [address] [place] [phone] German Pierce P.A.-CCourtney [address] [place] [phone] 02/10/2025 1:00 PM CDT Office Visit Department of Oncology in [place], [place] [address] [place] [phone] Rik Aguirre M.D., M.S. [address] [place] [phone] 02/13/2025 9:45 AM CDT Infusion Department of Oncology in [place], [place] [address] [place] [phone] German Pierce P.A.-CCourtney [address] [place] [phone] 02/19/2025 10:00 AM CDT Lab Department of Laboratory Medicine and Pathology, [facility] in [place], [place] [address] [place] [phone] German Pierce P.A.-CCourtney [address] [place] [phone] 02/19/2025 12:00 PM CDT Infusion Department of Oncology in [place], [place] [address] [place] [phone] German Pierce P.A.-Wade [address] [place] [phone] 03/03/2025 11:00 AM CDT Lab Department of Laboratory Medicine and Pathology, [facility] in [place], [place] [address] [place] [phone] German Pierce P.A.-C. [address] [place] [phone] 03/03/2025 1:00 PM CDT Office Visit Department of Oncology in [place], [place] [address] [place] [phone] Rik Aguirre M.D., M.S. [address] [place] [phone] 03/04/2025 7:30 AM CDT Infusion Department of Oncology in [place], [place] [address] [place] [phone] German Pierce P.A.-C. [address] [place] [phone] 03/11/2025 10:00 AM CDT Lab Department of Laboratory Medicine and Pathology, [facility] in [place], [place] [address] [place] [phone] German Pierce P.A.-C. [address] [place] [phone] 03/11/2025 12:00 PM CDT Infusion Department of Oncology in [address] [phone] German Pierce P.A.-C. [address] [place] [phone] 03/24/2025 7:10 AM CDT Lab Department of Laboratory Medicine and Pathology, [facility] in [place], [place] [address] [place] [phone] German Pierce P.A.-C. [address] [place] [phone] 03/24/2025 9:20 AM CDT Office Visit Department of Oncology in [place], [place] [address] [place] [phone] Rik Aguirre M.D., M.S. [address] [place] [phone] 03/24/2025 10:15 AM CDT Infusion Department of Oncology in [place], [place] [address] [place] [phone] German Pierce P.A.-C. [address] [place] [phone] 04/01/2025 11:00 AM CDT Lab Department of Laboratory Medicine and Pathology, [facility] in [place], [place] [address] [place] [phone] German Pierce P.A.-C. [address] [place] [phone] 04/01/2025 1:00 PM CDT Infusion Department of Oncology in [address] [phone] German Pierce P.A.-C. [address] [place] [phone] Scheduled Procedures Name Priority Associated Diagnoses Date/Ti [...] documented as of this encounter Care Teams Primer Expeditor And Drier Relationship Specialty Start Date End Date Elsewhere, Pcp PCP - General Internal Medicine 10/13/22 documented as of this encounter
[2025-01-27 17:19] LABS: Basophils Absolute Auto 0.02 K/uL (0.00-0.30); Basophils Percent Auto 0.4 % (0.0-3.0); Eosinophils Absolute Auto 0.09 K/uL (0.00-0.50); Eosinophils Percent Auto 1.8 % (0.0-7.0); Hematocrit 38.3 % (37.0-53.0); Hemoglobin* 12.5 gm/dL (13.5-17.5); Immature Granulocytes Abs Auto 0.01 K/uL (0.00-0.30); Immature Granulocytes Pct Auto 0.2 %; Lymphocytes Percent Auto 8.3 % (20-44); Mean Corpuscular HGB Conc 33 gm/dL (32-36); Mean Corpuscular Hemoglobin 28 pg (26-34); Mean Corpuscular Volume 86 fL (80-100); Monocytes Percent Auto 9.1 % (0.0-11.0); Neutrophils Percent Auto 80.2 % (42.0-72.0); Platelet Count* 388 K/uL (140-440); RDW Coefficient of Variation % 11.7 % (11.5-15.5); Red Blood Count 4.46 m/uL (4.30-5.90); White Blood Count* 4.96 K/uL (4.50-11.00)
[2025-01-27 17:20] LABS: Slide Review Reflex No
[2025-01-27 17:41] LABS: Chloride* 95 mmol/L (96-114); Sodium* 133 mmol/L (135-149)
[2025-01-27 17:42] LABS: Potassium* 3.7 mmol/L (3.6-5.1)
[2025-01-27 17:44] LABS: Blood Urea Nitrogen* 17 mg/dL (7-30); Creatinine* 1.2 mg/dL (0.5-1.5); Est. Creatinine Clearance* 61.29; Estimated Glomerular Filt Rate 71 ml/min
[2025-01-27 17:45] LABS: Alanine Aminotransferase* 76 U/L (4-50); Alkaline Phosphatase* 143 U/L (40-150); Anion Gap 7 mEq/L (7-15); Aspartate Amino Transferase* 47 U/L (12-35); Bilirubin Direct* 0.3 mg/dL (0.0-0.5); Bilirubin Total* 0.4 mg/dL (0.1-1.5); Calcium* 9.1 mg/dL (8.4-10.6); Carbon Dioxide* 31 mmol/L (20-32); Glucose* 137 mg/dL (60-115); Total Protein* 7.3 g/dL (6.0-8.3)
[2025-01-27 17:48] LABS: C Reactive Protein* 1.7 mg/dL (0.5-1.0)
[2025-01-27 18:18] LABS: Appearance Urine Clear (Clear); Bilirubin Urine Negative (Negative); Blood Urine Negative (Negative); Color Urine Yellow (Yellow); Glucose Urine Trace (Negative); Ketones Urine Negative (Negative); Leukocyte Esterase Urine Negative (Negative); Nitrite Urine Negative (Negative); Protein Urine 2+ (Negative); pH Urine 6.5 (5.0-8.5)
[2025-01-27] MEDS: LACTATED RINGERS 1000 ML 1,000 ML IV (18:32)
[2025-01-27 18:40] LABS: RBC Urine 0-2 (0-2); WBC Urine 0-2 (0-5)
[2025-01-27 18:41] LABS: Squamous Epithelial Cell Urine Few (None-Few)
[2025-01-27] MEDS: OxyCODONE/APAP 5-325 TABLET 2 TAB PO (18:52)
[2025-01-27] MEDS: KETOROLAC 15 MG/ML inj IVP (18:54)
[2025-01-27 19:08] LABS: PCR FLU A Negative PCR FLU A (Negative); PCR FLU B Negative PCR FLU B (Negative); PCR RSV Negative PCR RSV (Negative); SARS PCR* Negative SARS-CoV-2 (Negative)
== END 2025-01-27 20:30 | disposition home or self-care (01) ==
PROVIDERS: Emergency Provider Family Medicine; PCP Radiology Radiation Oncology
DX: R11.2 Nausea with vomiting, unspecified (principal); E86.0 Dehydration
CPT/HCPCS: 36415; 71045; 80048; 80076; 81001; 85025; 86140; 87040; 87631; 96361; 96374; 96375; 99284; A9270; J1171; J1885; J2405; J7030; J7120